=== PATIENT | female | born 1950 | race Caucasian/White ===

== ENCOUNTER → 2016-09-21 | Outpatient (CLI) | payer MEDICAID ==
--- NOTE | 2016-09-21 16:43 | WOMENS IMAGING REPORT ---
EXAM DESCRIPTION: BILAT SCREENING MAMMO W/CAD COMPLETED DATE/TIME: 09/21/2016 2:35 pm REASON FOR STUDY: Z12.31, ROUTINE SCREENING MAMMO Z12.31 ENCNTR SCREEN MAMMOGRAM FOR MALIGNANT NEOP LASM OF BREA COMPARISON: 2014 TECHNIQUE: Standard craniocaudal and mediolateral oblique views of each breast recorded using [employer] l acquisition. LIMITATIONS: None. FINDINGS: No masses, calcifications or architectural distortion. No areas of suspicion. Read with the assistance of CAD. .[facility] - R2 Cenova Version 1.3 .[facility] - R2 Cenova Version 1.3 .[facility] - R2 Cenova Version 2.4 .[facility] - R2 Cenova Version 2.4 .[facility] - R2 Hospice Volunteer Version 9.2 IMPRESSION: NORMAL MAMMOGRAM. BIRADS 1. BREAST DENSITY: b. There are scattered areas of fibroglandular density. BIRAD: 1 NEGATIVE RECOMMENDATION: ROUTINE SCREENING COMMENT: The patient has been notified of the results by letter per MQSA requirements. Additional no tification policies are in place for contacting patient with suspicious or incomplete findings. Quality ID #[id number]: The [employer] recommends an annual screening mammogram for women aged 40 years or over. This facility utilizes a reminder system to ensure that all patients receive reminder letters, and/or direct phone calls for appointments. This includes reminders for routine scr eening mammograms, diagnostic mammograms, or other Breast Imaging Interventions when appropriate. Th is patient will be placed in the appropriate reminder system. The [employer] (ACR) has developed recommendations for screening MRI of the breast s in certain patient populations, to be used in conjunction with mammography. Breast MRI surveillanc e may be appropriate for women with more than 20% lifetime risk of developing breast cancer as deter mined by genetic testing, significant family history of the disease, or history of mantle radiation f or Hodgkins Disease. ACR Practice Guidelines 2008. TECHNICAL DOCUMENTATION: FINDING NUMBER: (1) ASSESSMENT: (1) JOB ID: [id number] [employer]- All Rights Reserved
== END ==
LOC: WI 13:21
PROVIDERS: ATTEND Internal Medicine Geriatric Medicine
DX: Z12.31 Encounter for screening mammogram for malignant neoplasm of breast (principal)
CPT/HCPCS: 77067; G0202

== ENCOUNTER 2017-09-01 15:46 | Emergency (ER) | payer MEDICARE, MEDICAID ==
[2017-09-01] MEDS ORDERED: LORAZEPAM 1 MG TABLET PO ONE (16:03)
--- NOTE | 2017-09-01 16:03 | ER Document Report ---
ED General - General Chief Complaint: Tremor Stated Complaint: SHAKING Time Seen by Provider: 09/01/17 15:59 Mode of Arrival: Ambulatory Information source: Patient Notes: 67-year-old female diabetic who notes her blood sugars usually in the 400s and refuses to take any insulin presents with complaints of generalized shaking TRAVEL OUTSIDE OF THE [place] IN LAST 30 DAYS: No - Related Data Allergies/Adverse Reactions: codeine [Codeine] Allergy (Severe, Verified 08/27/15 19:15) Anaphylaxis dihydroergotamine mesylate [From Dhe] Allergy (Severe, Verified 08/27/15 19:15) Loss of balance/severe dizziness escitalopram oxalate [From Lexapro] Adverse Reaction (Severe, Verified 08/27/15 19:15) Suicidal Past Medical History - Social History Smoking Status: Current Every Day Smoker Cigarette use (# per day): Yes Chew tobacco use (# tins/day): No Smoking Education Provided: No Family History: Reviewed & Not Pertinent, Arthritis, CAD, DM, Hyperlipidemia, Hypertension, Malignancy - Past Medical History Cardiac Medical History: Reports: Hx Hypercholesterolemia, Hx Hypertension Denies: Hx Coronary Artery Disease, Hx Heart Attack Pulmonary Medical History: Denies: Hx Asthma, Hx Bronchitis, Hx COPD, Hx Pneumonia Neurological Medical History: Reports: Hx Migraine. Denies: Hx Cerebrovascular Accident, Hx Seizures - ? Unsure, going to sleep study after preop appt Endocrine Medical History: Reports: Hx Diabetes Mellitus Type 2 Renal/ Medical History: Reports: Hx Kidney Stones GI Medical History: Reports: Hx Gastroesophageal Reflux Disease, Hx Colonoscopy , Hx Endoscopy Musculoskeltal Medical History: Denies Hx Arthritis, Reports Hx Musculoskeletal Deformity Psychiatric Medical History: Reports: Hx Bipolar Disorder, Hx Depression Infectious Medical History: Past Surgical History: Reports: Hx Abdominal Surgery - lLiposuction, Hx Breast Surgery, Hx Cholecystectomy, Hx Hysterectomy, Hx Neurologic Surgery - Vagus nerve stimulator placed, Hx Nose Surgery, Hx Tonsillectomy - Immunizations Immunizations up to date: No Hx Diphtheria, Pertussis, Tetanus Vaccination: No Review of Systems - Review of Systems Notes: REVIEW OF SYSTEMS: CONSTITUTIONAL : Denies fever, chills, or sweats. Denies recent illness. EENT: Denies eye, ear, throat, or mouth pain or symptoms. Denies nasal or sinus congestion or discharge. Denies throat, tongue, or mouth swelling or difficulty swallowing. CARDIOVASCULAR: Denies chest pain. Denies palpitations or racing or irregular heart beat. Denies ankle edema. RESPIRATORY: Denies cough, cold, or chest congestion. Denies shortness of breath, difficulty breathing, or wheezing. GASTROINTESTINAL: Denies abdominal pain or distention. Denies nausea, vomiting , or diarrhea. Denies blood in vomitus, stools, or per rectum. Denies black, tarry stools. Denies constipation. GENITOURINARY: Denies difficulty urinating, painful urination, burning, frequency, blood in urine, or discharge. FEMALE GENITOURINARY: Denies vaginal bleeding, heavy or abnormal periods, irregular periods. Denies vaginal discharge or odor. MUSCULOSKELETAL: Denies back or neck pain or stiffness. Denies joint pain or swelling. SKIN: Denies rash, lesions or sores. HEMATOLOGIC : Denies easy bruising or bleeding. LYMPHATIC: Denies swollen, enlarged glands. NEUROLOGICAL: Denies confusion or altered mental status. Denies passing out or loss of consciousness. Denies dizziness or lightheadedness. Denies headache. Denies weakness or paralysis or loss of use of either side. Denies problems with gait or speech. Denies sensory loss, numbness, or tingling. Denies seizures. PSYCHIATRIC: Admits to stress anxiety shaking ALL OTHER SYSTEMS REVIEWED AND NEGATIVE. PHYSICAL EXAMINATION: GENERAL: Well-appearing, well-nourished appears to be having a panic attack HEAD: Atraumatic, normocephalic. EYES: Pupils equal round and reactive to light, extraocular movements intact, conjunctiva are normal. ENT: Nares patent, oropharynx clear without exudates. Moist mucous membranes. NECK: Normal range of motion, supple without lymphadenopathy LUNGS: Breath sounds clear to auscultation bilaterally and equal. No wheezes rales or rhonchi. HEART: Regular rate and rhythm without murmurs ABDOMEN: Soft, nontender, nondistended abdomen. No guarding, no rebound. No masses appreciated. Female : deferred Musculoskeletal: Normal range of motion, no pitting or edema. No cyanosis. NEUROLOGICAL: Cranial nerves grossly intact. Normal speech, normal gait. Normal sensory, motor exams PSYCH: extremely anxious and shaking SKIN: Warm, Dry, normal turgor, no rashes or lesions noted. Dictation was performed using [employer] recognition software Physical Exam - Vital signs Vitals: Temp Pulse Resp BP Pulse Ox 99.3 F 122 H 24 H 195/102 H 94 09/01/17 15:58 09/01/17 15:58 09/01/17 15:58 09/01/17 15:58 09/01/17 15:58 Course - Re-evaluation Re-evalutation: 09/01/17 17:42 Patient symptoms have completely resolved after being given Ativan, she is no longer in distress, she is quite calm at this time happy states her symptoms have completely resolved Patient overall looks well is in no distress her liver enzymes are noted to be elevated but have been elevated in the past, this has been instructed to her After performing a Medical Screening Examination, I estimate there is LOW risk for ACUTE APPENDICITIS, BOWEL OBSTRUCTION, ACUTE CHOLECYSTITIS, PERFORATED DIVERTICULITIS, INCARCERATED HERNIA, PANCREATITIS, PELVIC INFLAMMATORY DISEASE, PERFORATED ULCER, ECTOPIC , or TUBO-OVARIAN ABSCESS, thus I consider the discharge disposition reasonable. Also, there is no evidence or peritonitis , sepsis, or toxicity. I have reevaluated this patient multiple times and no significant life threatening changes are noted. The patient and I have discussed the diagnosis and risks, and we agree with discharging home with close follow-up with the understanding that symptoms and presentations can change. We also discussed returning to the Emergency Department immediately if new or worsening symptoms occur. We have discussed the symptoms which are most concerning (e.g., bloody stool, fever, changing or worsening pain, vomiting) that necessitate immediate return. - Vital Signs Vital signs: Temp Pulse Resp BP Pulse Ox 99.3 F 122 H 24 H 195/102 H 94 09/01/17 15:58 09/01/17 15:58 09/01/17 15:58 09/01/17 15:58 09/01/17 15:58 - Laboratory Result Diagrams: 09/01/17 16:22 09/01/17 16:22 Laboratory results interpreted by me: 09/01/17 09/01/17 09/01/17 15:48 16:22 16:22 WBC 12.5 H Absolute Neutrophils 8.7 H Glucose 366 H Calcium 10.6 H AST 43 H ALT 156 H Alkaline Phosphatase 303 H Urine Protein 100 H Urine Glucose (UA) >=500 H Ur Leukocyte Esterase SMALL H Discharge - Discharge Clinical Impression: Panic attack as reaction to stress, Elevated liver enzymes HTN (hypertension) Qualifiers: Hypertension type: essential hypertension Qualified Code(s): I10 - Essential ( primary) hypertension Condition: Stable Disposition: HOME, SELF-CARE Instructions: Panic Attack ([facility]) Prescriptions: Lorazepam [Ativan 1 mg Tablet] 1 mg PO Q4 PRN #14 tab PRN Reason: Referrals: ROSALINO LAWRENCE MD [Primary Care Provider] - Follow up tomorrow
[2017-09-01 16:06] VITALS: BP 195/102
[2017-09-01 16:55] LABS: ABSOLUTE BASOPHILS # (AUTO) 0.1 10^3/uL (0.0-0.2); ABSOLUTE EOSINOPHILS # (AUTO) 0.2 10^3/uL (0.0-0.6); ABSOLUTE LYMPHOCYTES (AUTO) 2.8 10^3/uL (0.5-4.7); ABSOLUTE MONOCYTES (AUTO) 0.7 10^3/uL (0.1-1.4); ABSOLUTE NEUT (AUTO) 8.7 10^3/uL (1.7-8.2); BASOPHILS % (AUTO) 0.6 % (0-2); EOSINOPHILS % (AUTO) 1.6 % (0-6); HEMATOCRIT 43.1 % (36.0-47.0); HEMOGLOBIN 14.4 g/dL (12.0-15.5); LYMPHOCYTES % (AUTO) 22.1 % (13-45); MEAN CORPUSCULAR HGB CONC 33.4 g/dL (32.0-36.0); MEAN CORPUSCULAR VOLUME 84 fl (80-97); MONOCYTES % (AUTO) 5.9 % (3-13); PLATELET COUNT 411 10^3/uL (150-450); RED BLOOD COUNT 5.14 10^6/uL (3.72-5.28); RED CELL DISTRIBUTION WIDTH 13.1 % (11.5-14.0); SEGMENTED NEUTROPHILS % (AUTO) 69.8 % (42-78); TOTAL CELLS COUNTED % (AUTO) 100 %; WHITE BLOOD COUNT 12.5 10^3/uL (4.0-10.5)
[2017-09-01 17:10] LABS: APPEARANCE,URINE SLIGHTLY-CLOUDY; BILIRUBIN,URINE NEGATIVE (NEGATIVE); COLOR,URINE YELLOW; GLUCOSE, URINE >=500 mg/dL (NEGATIVE); KETONES,URINE NEGATIVE (NEGATIVE); LEUKOCYTE ESTERASE,URINE SMALL (NEGATIVE); NITRITE,URINE NEGATIVE (NEGATIVE); PROTEIN,URINE 100 mg/dL (NEGATIVE); URINE SPECIFIC GRAVITY 1.015; UROBILINOGEN,URINE NEGATIVE mg/dL (<2.0)
[2017-09-01 17:11] LABS: ALANINE AMINOTRANSFERASE 156 U/L (9-52); ALBUMIN 4.6 g/dL (3.5-5.0); ALKALINE PHOSPHATASE 303 U/L (38-126); ANION GAP 13 (5-19); ASPARTATE AMINO TRANSFERASE 43 U/L (14-36); BILIRUBIN,DIRECT 0.4 mg/dL (0.0-0.4); BILIRUBIN,TOTAL 0.8 mg/dL (0.2-1.3); BLOOD UREA NITROGEN 13 mg/dL (7-20); CALCIUM 10.6 mg/dL (8.4-10.2); CARBON DIOXIDE 29 mmol/L (22-30); CHLORIDE 101 mmol/L (98-107); GLUCOSE 366 mg/dL (75-110); POTASSIUM 4.6 mmol/L (3.6-5.0); SODIUM 143.2 mmol/L (137-145); TOTAL PROTEIN 7.5 g/dL (6.3-8.2)
== END 2017-09-01 17:57 | disposition home or self-care (01) ==
LOC: ER 15:46
DX: F43.0 Acute stress reaction (principal); R74.8 Abnormal levels of other serum enzymes; I10 Essential (primary) hypertension; E11.9 Type 2 diabetes mellitus without complications; F17.210 Nicotine dependence, cigarettes, uncomplicated; Z88.8 Allergy status to other drugs, medicaments and biological substances; Z87.892 Personal history of anaphylaxis; Z88.5 Allergy status to narcotic agent
CPT/HCPCS: 99283; 36415; 87086; 82962; 85025; 80053; 81001; A9270

== ENCOUNTER 2017-10-03 03:22 | Emergency (ER) | payer MEDICARE, MEDICAID ==
[2017-10-03] MEDS ORDERED: GABAPENTIN 300 MG CAPSULE PO ONE (05:17)
[2017-10-03] MEDS ORDERED: GABAPENTIN 100 MG CAPSULE PO ONE (05:17)
[2017-10-03] MEDS ORDERED: QUETIAPINE FUMARATE 100 MG TABLET PO ONE (05:17)
--- NOTE | 2017-10-03 05:17 | ER Document Report ---
HPI - HPI Patient complains to provider of: Insomnia, medication refill Pain Level: 1 Context: Patient is a 67-year-old female who comes emergency department for chief complaint of insomnia. She states that she ran out of her Seroquel, she takes 500 mg at night, she also ran out of her gabapentin, she takes 400 mg 5 times daily. She has the prescription bottles with her. She states that her provider is out of town for a few days and she cannot get refills, she has not slept other than a couple of catnaps for the past 2-3 days. She denies fever, nausea vomiting, she reports mild headache. She denies chest pain, shortness of breath, vomiting. She denies any other complaints. - CONSTITUTIONAL Constitutional: DENIES: Fever, Chills - EENT EENT: DENIES: Sore Throat, Ear Pain, Eye problems - NEURO Neurology: DENIES: Headache, Weakness, Vision blurred, Dizzinesss / Vertigo - CARDIOVASCULAR Cardiovascular: DENIES: Chest pain - RESPIRATORY Respiratory: DENIES: Trouble Breathing, Coughing - GASTROINTESTINAL Gastrointestinal: DENIES: Abdominal Pain, Black / Bloody Stools - URINARY Urinary: DENIES: Dysuria, Urgency, Frequency - REPRODUCTIVE Reproductive: DENIES: : - MUSCULOSKELETAL Musculoskeletal: DENIES: Extremity pain Past Medical History - General Information source: Patient - Social History Smoking Status: Former Smoker Frequency of alcohol use: None Drug Abuse: None Lives with: Alone Family History: Reviewed & Not Pertinent, Arthritis, CAD, DM, Hyperlipidemia, Hypertension, Malignancy Patient has suicidal ideation: No Patient has homicidal ideation: No - Past Medical History Cardiac Medical History: Reports: Hx Hypercholesterolemia, Hx Hypertension Denies: Hx Coronary Artery Disease, Hx Heart Attack Pulmonary Medical History: Denies: Hx Asthma, Hx Bronchitis, Hx COPD, Hx Pneumonia Neurological Medical History: Reports: Hx Migraine. Denies: Hx Cerebrovascular Accident. Comment Only: Hx Seizures - ? Unsure, going to sleep study after preop appt Endocrine Medical History: Reports: Hx Diabetes Mellitus Type 2 Renal/ Medical History: Reports: Hx Kidney Stones. Denies: Hx Peritoneal Dialysis GI Medical History: Reports: Hx Gastroesophageal Reflux Disease, Hx Colonoscopy , Hx Endoscopy Musculoskeltal Medical History: Denies Hx Arthritis, Reports Hx Musculoskeletal Deformity Psychiatric Medical History: Reports: Hx Bipolar Disorder, Hx Depression Infectious Medical History: Past Surgical History: Reports: Hx Abdominal Surgery - lLiposuction, Hx Breast Surgery, Hx Cholecystectomy, Hx Hysterectomy, Hx Neurologic Surgery - Vagus nerve stimulator placed, Hx Nose Surgery, Hx Tonsillectomy - Immunizations Immunizations up to date: No Hx Diphtheria, Pertussis, Tetanus Vaccination: No Vertical Provider Document - CONSTITUTIONAL General Appearance: WD/WN, No Apparent Distress - INFECTION CONTROL TRAVEL OUTSIDE OF THE [place] IN LAST 30 DAYS: No - HEENT HEENT: Atraumatic, Normal ENT Exam, Normocephalic - NECK Neck: Normal Inspection - RESPIRATORY Respiratory: Breath Sounds Normal, No Respiratory Distress - CARDIOVASCULAR Cardiovascular: Regular Rate, Regular Rhythm - GI/ABDOMEN Gastrointestinal: Abdomen Soft, Abdomen Non-Tender - BACK Back: Normal Inspection - MUSCULOSKELETAL/EXTREMETIES Musculoskeletal/Extremeties: MAEW, FROM, Non-Tender - NEURO Level of Consciousness: Awake, Alert, Appropriate - DERM Integumentary: Warm, Dry, No Rash Course - Re-evaluation Re-evalutation: Patient is actually alert, relaxed, oriented, and conversational. She explains that she ran out of her medications and she has only had minimal napping, she is very tired but she cannot fall asleep. She is requesting for doses of her nighttime medications and prescriptions of these. She brought her empty bottles. No SI or HI. No additional complaints. Unremarkable vital signs. Well-appearing on exam. Patient was provided with these requests, she will follow-up with her primary care, discussed return instructions, patient states understanding and agreement. - Vital Signs Vital signs: Temp Pulse Resp BP Pulse Ox 98.0 F 100 16 148/76 H 100 10/03/17 03:28 10/03/17 03:28 10/03/17 03:28 10/03/17 03:28 10/03/17 03:28 Discharge - Discharge Clinical Impression: Medication refill Insomnia Qualifiers: Insomnia type: unspecified Qualified Code(s): G47.00 - Insomnia, unspecified Condition: Stable Disposition: HOME, SELF-CARE Additional Instructions: Take your prescribed medications including gabapentin and Seroquel as written. Follow-up with your primary care for additional evaluation and management. Return to the emergency department for any concerning symptoms or something is not right. Prescriptions: Gabapentin 400 mg PO ASDIR PRN #60 capsule PRN Reason: Quetiapine Fumarate [Seroquel] 200 mg PO ASDIR PRN #30 tablet PRN Reason: Forms: Elevated Blood Pressure Referrals: ROSALINO LAWRENCE MD [Primary Care Provider] - Follow up as needed
[2017-10-03] MEDS ORDERED: ONDANSETRON 4 MG TAB.RAPDIS PO ONE (05:18)
[2017-10-03 05:41] VITALS: BP 151/86
== END 2017-10-03 05:40 | disposition home or self-care (01) ==
LOC: ER 03:22
DX: Z76.0 Encounter for issue of repeat prescription (principal); G47.00 Insomnia, unspecified; T42.6X6A Underdosing of other antiepileptic and sedative-hypnotic drugs, initial encounter; Z91.128 Patient's intentional underdosing of medication regimen for other reason; Z91.14 Patient's other noncompliance with medication regimen; F31.9 Bipolar disorder, unspecified; T43.596A Underdosing of other antipsychotics and neuroleptics, initial encounter; I10 Essential (primary) hypertension; E11.9 Type 2 diabetes mellitus without complications; Z87.891 Personal history of nicotine dependence
CPT/HCPCS: 99283; A9270 ×4; S0119

== ENCOUNTER 2017-10-29 05:34 | Emergency (ER) | payer MEDICARE, MEDICAID ==
--- NOTE | 2017-10-29 05:49 | ER Document Report ---
ED Medical Screen (RME) - General Stated Complaint: FALL,BACK PAIN Time Seen by Provider: 10/29/17 05:40 Notes: 67-year-old female, chief complaint of a fall, she states she suddenly got really dizzy and lightheaded and then fell into her tub when she was trying to go to the bathroom. She denies head injury, headache, neck pain, focal numbness or weakness. She states she hurts in her back and her hips, she was stuck on the floor in the tub for about 4 hours before neighbors responded and called the police, EMS broke down her door. Patient keeps repeating she is fine , declined IV access. She denies blood thinners. TRAVEL OUTSIDE OF THE [place] IN LAST 30 DAYS: No - Related Data Allergies/Adverse Reactions: codeine [Codeine] Allergy (Severe, Verified 08/27/15 19:15) Anaphylaxis dihydroergotamine mesylate [From Dhe] Allergy (Severe, Verified 08/27/15 19:15) Loss of balance/severe dizziness escitalopram oxalate [From Lexapro] Adverse Reaction (Severe, Verified 08/27/15 19:15) Suicidal Past Medical History - Past Medical History Cardiac Medical History: Reports: Hx Hypercholesterolemia, Hx Hypertension Denies: Hx Coronary Artery Disease, Hx Heart Attack Pulmonary Medical History: Denies: Hx Asthma, Hx Bronchitis, Hx COPD, Hx Pneumonia Neurological Medical History: Reports: Hx Migraine. Denies: Hx Cerebrovascular Accident. Comment Only: Hx Seizures - ? Unsure, going to sleep study after preop appt Endocrine Medical History: Reports: Hx Diabetes Mellitus Type 2 Renal/ Medical History: Reports: Hx Kidney Stones. Denies: Hx Peritoneal Dialysis GI Medical History: Reports: Hx Gastroesophageal Reflux Disease, Hx Colonoscopy , Hx Endoscopy Musculoskeltal Medical History: Denies Hx Arthritis, Reports Hx Musculoskeletal Deformity Psychiatric Medical History: Reports: Hx Bipolar Disorder, Hx Depression Infectious Medical History: Past Surgical History: Reports: Hx Abdominal Surgery - lLiposuction, Hx Breast Surgery, Hx Cholecystectomy, Hx Hysterectomy, Hx Neurologic Surgery - Vagus nerve stimulator placed, Hx Nose Surgery, Hx Tonsillectomy - Immunizations Immunizations up to date: No Hx Diphtheria, Pertussis, Tetanus Vaccination: No Physical Exam - Back Back: Tender - Generalized tenderness over lumbar area, no noted signs of trauma - Neurological Neuro grossly intact: Yes Cognition: Normal Orientation: AAOx4 Toan Coma Scale Eye Opening: Spontaneous Toan Coma Scale Verbal: Oriented Toan Coma Scale Motor: Obeys Commands Toan Coma Scale Total: 15 Speech: Normal Cranial nerves: Normal Cerebellar coordination: Normal Motor strength normal: ELADIO ANDERSON, HANSAE, RLE Doctor's Discharge - Discharge Referrals: ROSALINO LAWRENCE MD [Primary Care Provider] - Follow up as needed
--- NOTE | 2017-10-29 06:26 | ER Document Report ---
ED Fall - General Chief Complaint: Fall Stated Complaint: FALL,BACK PAIN Time Seen by Provider: 10/29/17 05:40 TRAVEL OUTSIDE OF THE [place] IN LAST 30 DAYS: No - HPI Occurred: Just prior to arrival Where: Home Context: Lost balance, Fell from standing Associated symptoms: Became dizzy/fainted Location of injury/pain: Back Severity: Moderate Notes: 67-year-old female, chief complaint of a fall, she states she suddenly got really dizzy and lightheaded after standing up from the toilet status post urination. And then fell into her tu. She denies head injury, headache, neck pain, focal numbness or weakness. She states she hurts in her back and her hips , she was stuck on the floor in the tub for about 4 hours before neighbors responded and called the police, EMS broke down her door. Patient complains of some mild low back pain. Denies any head or neck pain. The patient stood up from a standing position and got very dizzy when she was on the toilet. She states she never really passed out. States she has been well as of late most notable she has had her Neurontin doubled last week for her tremors. She has been seeing her family doctor for this. - Related data Allergies/Adverse Reactions: codeine [Codeine] Allergy (Severe, Verified 08/27/15 19:15) Anaphylaxis dihydroergotamine mesylate [From Dhe] Allergy (Severe, Verified 08/27/15 19:15) Loss of balance/severe dizziness escitalopram oxalate [From Lexapro] Adverse Reaction (Severe, Verified 08/27/15 19:15) Suicidal Past Medical History - Social History Smoking Status: Never Smoker Chew tobacco use (# tins/day): No Frequency of alcohol use: None Drug Abuse: None Family History: Reviewed & Not Pertinent, Arthritis, CAD, DM, Hyperlipidemia, Hypertension, Malignancy Patient has suicidal ideation: No Patient has homicidal ideation: No - Past Medical History Cardiac Medical History: Reports: Hx Hypercholesterolemia, Hx Hypertension Denies: Hx Coronary Artery Disease, Hx Heart Attack Pulmonary Medical History: Denies: Hx Asthma, Hx Bronchitis, Hx COPD, Hx Pneumonia Neurological Medical History: Reports: Hx Migraine. Denies: Hx Cerebrovascular Accident. Comment Only: Hx Seizures - ? Unsure, going to sleep study after preop appt Endocrine Medical History: Reports: Hx Diabetes Mellitus Type 2 Renal/ Medical History: Reports: Hx Kidney Stones. Denies: Hx Peritoneal Dialysis GI Medical History: Reports: Hx Gastroesophageal Reflux Disease, Hx Colonoscopy , Hx Endoscopy Musculoskeletal Medical History: Denies Hx Arthritis, Reports Hx Musculoskeletal Deformity Psychiatric Medical History: Reports: Hx Bipolar Disorder, Hx Depression Infectious Medical History: Past Surgical History: Reports: Hx Abdominal Surgery - lLiposuction, Hx Breast Surgery, Hx Cholecystectomy, Hx Hysterectomy, Hx Neurologic Surgery - Vagus nerve stimulator placed, Hx Nose Surgery, Hx Tonsillectomy - Immunizations Immunizations up to date: No Hx Diphtheria, Pertussis, Tetanus Vaccination: No Review of Systems - Review of Systems Constitutional: denies: Chills, Fever Cardiovascular: denies: Chest pain Respiratory: denies: Short of breath Gastrointestinal: denies: Abdominal pain, Nausea, Vomiting Musculoskeletal: Back pain. denies: Joint pain Neurological/Psychological: Tremor. denies: Confusion, Dementia -: Yes All other systems reviewed and negative Physical Exam - Vital signs Vitals: Resp Pulse Ox 23 H 95 10/29/17 05:42 10/29/17 05:42 - Notes Notes: GENERAL_APPEARANCE: well_nourished, alert, cooperative, no_acute_distress, no_ obvious_discomfort. VITALS: reviewed, see vital signs table. HEAD: no_swelling\tenderness on the head. EYES: PERRL, EOMI, conjunctiva_clear. NOSE: no_nasal_discharge. MOUTH: (-)decreased moisture. THROAT: no_airway_obstruction. no_lymphadenopathy NECK: supple, no_neck_tenderness, (-)thyromegaly. BACK: L1-3 paraspinal_back_tenderness. CHEST_WALL: no_chest_tenderness. LUNGS: no_wheezing, no_rales, no_rhonchi, (-)accessory muscle use, good air exchange bilateral. HEART: normal_rate, normal_rhythm, normal_S1, normal_S2, (-)S3, (-)S4, no_ murmur, no_rub. ABDOMEN: normal_BS, soft, no_abd_tenderness, (-)guarding, (-)rebound, no_ organomegaly, no_abd_masses. EXTREMITIES: good pulses in all_extremities, no_swelling\tenderness in the extremities, no_edema. SKIN: warm, dry, good_color, no_rash. MENTAL_STATUS: speech_clear, oriented_X_3, normal_affect, responds_ appropriately to questions. NEURO: Neg Motor or Sensory Deficits on exam, CN 2-12 intact, DTR 2+ symmetric x 4, No cerbellar signs Course - Re-evaluation Re-evalutation: 10/29/17 06:30 67-year-old female who was in the bathroom urinating and went to stand up and got very dizzy and fell onto her bathtub. She was stuck in the bathtub in a certain position where she could not for yourself. Was knocking on the wall for several hours. EMS had to break down the door to get in. States she is feeling much better now after not being trapped in the tub. She denies any head or neck injuries. Stated she had dizzy when she stood up from the toilet. She denies chest pains or shortness of breath. Rechecking some generalized labs to be shows no significant abnormalities. I do not feel a need to image her head she has no neurological complaints. The dizziness is likely due to standing or possibly vasovagal due to post maturation. Patient was also very tired and this was near the middle the night. She is feeling much better now will give her some fluids. Monitor her closely. 10/29/17 09:39 Patient was monitored blood sugar was up high we have given her fluids and insulin. I believe she usually runs high. I encouraged her to keep a check of her blood sugars and consult with her doctor to get her blood sugars better under control. Otherwise she has no injuries from her fall and other than her blood sugar everything is in order with her blood work. - Vital Signs Vital signs: Temp Pulse Resp BP Pulse Ox 97.9 F 21 H 138/107 H 97 10/29/17 06:01 10/29/17 06:01 10/29/17 06:01 10/29/17 06:01 - Laboratory Result Diagrams: 10/29/17 05:50 10/29/17 05:50 Laboratory results interpreted by me: 10/29/17 10/29/17 10/29/17 05:50 05:50 08:30 Sodium 135.6 L Carbon Dioxide 21 L Creatinine 0.46 L Glucose 631 H* POC Glucose 451 H* ALT 74 H Alkaline Phosphatase 252 H Urine Glucose (UA) >=500 H Discharge - Discharge Clinical Impression: Back sprain, Hyperglycemia Fall Qualifiers: Encounter type: initial encounter Qualified Code(s): W19.XXXA - Unspecified fall, initial encounter Condition: Good Disposition: HOME, SELF-CARE Instructions: Hyperglycemia ([facility]) Additional Instructions: Please keep a journal of her blood sugars and show them to your doctor so that they can adjust your diabetes medicine to keep the sugars low. Referrals: ROSALINO LAWRENCE MD [Primary Care Provider] - Follow up as needed
[2017-10-29 06:29] LABS: APPEARANCE,URINE CLEAR; BILIRUBIN,URINE NEGATIVE (NEGATIVE); COLOR,URINE STRAW; GLUCOSE, URINE >=500 mg/dL (NEGATIVE); KETONES,URINE NEGATIVE (NEGATIVE); LEUKOCYTE ESTERASE,URINE NEGATIVE (NEGATIVE); NITRITE,URINE NEGATIVE (NEGATIVE); PROTEIN,URINE NEGATIVE (NEGATIVE); URINE SPECIFIC GRAVITY 1.032; UROBILINOGEN,URINE NEGATIVE mg/dL (<2.0)
[2017-10-29] MEDS ORDERED: NORMAL SALINE 1000 ML 1,000 ML IV ONE ×2 (06:32→08:32)
[2017-10-29 06:34] LABS: ABSOLUTE EOSINOPHILS # (AUTO) 0.1 10^3/uL (0.0-0.6); ABSOLUTE LYMPHOCYTES (AUTO) 1.8 10^3/uL (0.5-4.7); ABSOLUTE MONOCYTES (AUTO) 0.5 10^3/uL (0.1-1.4); ABSOLUTE NEUT (AUTO) 4.4 10^3/uL (1.7-8.2); BASOPHILS % (AUTO) 0.7 % (0-2); EOSINOPHILS % (AUTO) 1.7 % (0-6); HEMATOCRIT 40.5 % (36.0-47.0); HEMOGLOBIN 13.5 g/dL (12.0-15.5); LYMPHOCYTES % (AUTO) 26.2 % (13-45); MEAN CORPUSCULAR HEMOGLOBIN 28.2 pg (27.0-33.4); MEAN CORPUSCULAR HGB CONC 33.2 g/dL (32.0-36.0); MEAN CORPUSCULAR VOLUME 85 fl (80-97); MONOCYTES % (AUTO) 7.7 % (3-13); PLATELET COUNT 243 10^3/uL (150-450); RED BLOOD COUNT 4.78 10^6/uL (3.72-5.28); RED CELL DISTRIBUTION WIDTH 13.3 % (11.5-14.0); SEGMENTED NEUTROPHILS % (AUTO) 63.7 % (42-78); TOTAL CELLS COUNTED % (AUTO) 100 %; WHITE BLOOD COUNT 6.9 10^3/uL (4.0-10.5)
[2017-10-29 06:48] LABS: ALANINE AMINOTRANSFERASE 74 U/L (9-52); ALBUMIN 3.8 g/dL (3.5-5.0); ALKALINE PHOSPHATASE 252 U/L (38-126); ANION GAP 17 (5-19); ASPARTATE AMINO TRANSFERASE 29 U/L (14-36); BILIRUBIN,DIRECT 0.3 mg/dL (0.0-0.4); BILIRUBIN,TOTAL 0.9 mg/dL (0.2-1.3); BLOOD UREA NITROGEN 10 mg/dL (7-20); CALCIUM 9.9 mg/dL (8.4-10.2); CARBON DIOXIDE 21 mmol/L (22-30); CHLORIDE 98 mmol/L (98-107); CREATINE KINASE 35 U/L (30-135); POTASSIUM 4.3 mmol/L (3.6-5.0); SODIUM 135.6 mmol/L (137-145); TOTAL PROTEIN 6.6 g/dL (6.3-8.2)
[2017-10-29 07:12] LABS: GLUCOSE 631 mg/dL (75-110)
[2017-10-29] MEDS ORDERED: INSULIN REG, HUMAN 100 UNIT/ML 3 ML VIAL (PYX) IV ONE ×2 (07:12→08:32)
--- NOTE | 2017-10-29 07:17 | RADIOLOGY REPORT (SQ) ---
EXAM DESCRIPTION: XR LUMBAR SPINE ANTEROPOSTERIOR, LATERAL, AND OBLIQUES COMPLETED DATE/TME: 10/29/2017 05:45 CLINICAL HISTORY: 67 years, Female, fall, pain COMPARISON: None. FINDINGS: 4 views of the lumbar spine. Vertebral body height and intervertebral disc height preserved. Mild endplate spondylosis and facet arthropathy. No cortical step-offs or subluxation. No acute abnormalities of the pelvis or sacrum. Postoperative change in the pelvis. Atherosclerotic vascular calcification. IMPRESSION: No acute abnormality of the lumbar spine by plain film criteria. 2010 [employer]- All Rights Reserved
--- NOTE | 2017-10-29 07:20 | RADIOLOGY REPORT (SQ) ---
EXAM DESCRIPTION: XR HIP 1 VIEW BILATERAL COMPLETED DATE/TME: 10/29/2017 05:46 CLINICAL HISTORY: 67 years, Female, fall, pain COMPARISON: None. FINDINGS: Single view of the pelvis and bilateral lateral views of the hips. No acute fracture or dislocation. No acute abnormalities of the pelvis or sacrum. Postoperative change in the pelvis. Osteopenia. IMPRESSION: No acute fracture. 2010 [employer]- All Rights Reserved
--- NOTE | 2017-10-29 09:04 | EKG REPORT ---
SEVERITY:- ABNORMAL ECG - SINUS TACHYCARDIA ABNRM R PROG, CONSIDER ASMI OR LEAD PLACEMENT : Confirmed by: Raquel Holguin 29-Oct-2017 09:03:17
[2017-10-29 10:11] VITALS: BP 119/72
== END 2017-10-29 10:10 | disposition home or self-care (01) ==
LOC: ER 05:34
DX: M54.9 Dorsalgia, unspecified (principal); M25.559 Pain in unspecified hip; W17.89XA Other fall from one level to another, initial encounter; Y93.89 Activity, other specified; Y92.002 Bathroom of unspecified non-institutional (private) residence as the place of occurrence of the external cause; E11.65 Type 2 diabetes mellitus with hyperglycemia; R42 Dizziness and giddiness; R25.1 Tremor, unspecified; I10 Essential (primary) hypertension; Z79.899 Other long term (current) drug therapy; Z88.6 Allergy status to analgesic agent; Z87.892 Personal history of anaphylaxis; Z88.5 Allergy status to narcotic agent
CPT/HCPCS: 93005; 99284; 96360; 96361; 36415; 82962; 82550; 85025; 80053; 81001; 84484; 72110; 73522; 93010; A9270; J7030; J1815

== ENCOUNTER 2018-01-16 09:57 | Inpatient (IN) | payer MEDICARE, MEDICAID ==
--- NOTE | 2018-01-16 10:24 | ER Document Report ---
ED General - General Chief Complaint: Shortness Of Breath Stated Complaint: DIFFICULTY BREATHING Time Seen by Provider: 01/16/18 10:14 Notes: Patient is a 67-year-old female with diabetes mellitus, anxiety and hypertension that presents to the emergency department for chief complaint of shortness of breath, and abdominal pain and diarrhea. Patient states his been feeling this way for a few days, and has worsened over that period of time. She is diabetic, she does not take her glucose at home, per EMS it was high, when taken. Patient unable to provide significant history at this time as she is in significant respiratory distress, denies having any chest pain associated with this. But she states she does have abdominal cramping and pain. Past Medical History: Diabetes mellitus, anxiety, hypertension Past Surgical History: Reports lung surgery Social History: Admits to smoking cigarettes daily, denies alcohol use Family History: Reviewed and noncontributory for presenting illness Allergies: Reviewed, see documented allergy list. REVIEW OF SYSTEMS: Unless otherwise stated in this report the patient's positive and negative responses for review of systems for constitutional, eyes, ENT, cardiovascular, respiratory, gastrointestinal, neurological, genitourinary, musculoskeletal, and integumentary systems and related systems to the presenting problem are either as stated in the HPI or were not pertinent or were negative for the symptoms and/or complaints related to the presenting medical problem. PHYSICAL EXAMINATION: Vital signs reviewed, nursing noted reviewed. GENERAL: Chronically ill-appearing female, in severe distress, increased work of breathing HEAD: Atraumatic, normocephalic. EYES: Eyes appear normal, extraocular movements intact, sclera anicteric, conjunctiva are normal. ENT: nares patent, oropharynx clear without exudates. Dry mucous membranes NECK: Normal range of motion, supple without lymphadenopathy LUNGS: Increased, shallow and rapid breathing, equal bilaterally, scattered expiratory wheezing noted as well. Acute respiratory distress HEART: Heart rate tachycardic, regular rhythm, no audible murmur ABDOMEN: Soft, mild diffuse tenderness with palpation, normoactive bowel sounds. No rebound, guarding, or rigidity. No masses appreciated. EXTREMITIES: Nontender, good range of motion, no pitting or edema. NEUROLOGICAL: No focal neurological deficits. Moves all extremities spontaneously Motor and sensory grossly intact on exam. PSYCH: Patient in distress, slow to answer questions SKIN: Warm, Dry, normal turgor, no rashes or lesions noted on exposed skin TRAVEL OUTSIDE OF THE [place] IN LAST 30 DAYS: No - Related Data Allergies/Adverse Reactions: codeine [Codeine] Allergy (Severe, Verified 08/27/15 19:15) Anaphylaxis dihydroergotamine mesylate [From Dhe] Allergy (Severe, Verified 08/27/15 19:15) Loss of balance/severe dizziness escitalopram oxalate [From Lexapro] Adverse Reaction (Severe, Verified 08/27/15 19:15) Suicidal Past Medical History - Social History Smoking Status: Current Every Day Smoker Family History: Reviewed & Not Pertinent, Arthritis, CAD, DM, Hyperlipidemia, Hypertension, Malignancy - Past Medical History Cardiac Medical History: Reports: Hx Hypercholesterolemia, Hx Hypertension Denies: Hx Coronary Artery Disease, Hx Heart Attack Pulmonary Medical History: Denies: Hx Asthma, Hx Bronchitis, Hx COPD, Hx Pneumonia Neurological Medical History: Reports: Hx Migraine. Denies: Hx Cerebrovascular Accident. Comment Only: Hx Seizures - ? Unsure, going to sleep study after preop appt Endocrine Medical History: Reports: Hx Diabetes Mellitus Type 2 Renal/ Medical History: Reports: Hx Kidney Stones. Denies: Hx Peritoneal Dialysis GI Medical History: Reports: Hx Gastroesophageal Reflux Disease, Hx Colonoscopy , Hx Endoscopy Musculoskeletal Medical History: Denies Hx Arthritis, Reports Hx Musculoskeletal Deformity Psychiatric Medical History: Reports: Hx Bipolar Disorder, Hx Depression Infectious Medical History: Past Surgical History: Reports: Hx Abdominal Surgery - lLiposuction, Hx Breast Surgery, Hx Cholecystectomy, Hx Hysterectomy, Hx Neurologic Surgery - Vagus nerve stimulator placed, Hx Nose Surgery, Hx Tonsillectomy - Immunizations Immunizations up to date: No Hx Diphtheria, Pertussis, Tetanus Vaccination: No Physical Exam - Vital signs Vitals: Temp Pulse Resp BP Pulse Ox 97.9 F 130 H 28 H 84/67 L 93 01/16/18 10:11 01/16/18 10:11 01/16/18 10:11 01/16/18 10:11 01/16/18 10:11 Course - Re-evaluation Re-evalutation: Patient seen and examined vital signs reviewed. Laboratory data and imaging were ordered as appropriate for the patient's presenting symptoms and complaint, with consideration of any critical or life threatening conditions that may be associated with their obtained history and exam as noted above. Patient was treated with IV fluid bolusing, she was tachycardic, and appeared significantly dehydrated and was having diarrhea Results were reviewed when available and demonstrated markedly elevated lactic acid, greater than 8, glucose in the 700s, severe diabetic ketoacidosis, chest x -ray demonstrates small effusion, no evidence of pneumonia or infiltrate, urinalysis demonstrated glucose, without evidence of infection. The patient was re-evaluated and was improving from a blood pressure standpoint , she was hypotensive, needed IV fluid resuscitation, total of 3 L of IV fluid were ordered, and we will continue to bolus the patient as needed, she continues to have diarrhea. After significant fluid resuscitation, the patient's blood pressure is stabilized in the 120 systolic, heart rate still in 100s, but overall patient much improved. Evaluation was most consistent with hypotension, severe diabetic ketoacidosis, requiring fluid resuscitation, insulin infusion, multiple reassessments Results were discussed with the patient at this point after careful consideration I feel that that patient should be admitted to the hospital. This was discussed with the patient that it is in the best interest for their care to be admitted for further evaluation and management. Patient agreed with this plan of care. A call was placed to the admitted physician, Dr. Montenegro who graciously accepted the patient onto their service. *Note is created using voice recognition software and may contain spelling, syntax or grammatical errors. Laboratory 01/16/18 01/16/18 01/16/18 10:09 10:15 10:22 WBC 18.9 H RBC 5.32 H Hgb 15.1 Hct 47.3 H MCV 89 MCH 28.4 MCHC 31.9 L RDW 14.1 H Plt Count 398 Seg Neutrophils % 62.9 Lymphocytes % 32.2 Monocytes % 3.8 Eosinophils % 0.8 Basophils % 0.3 Absolute Neutrophils 11.9 H Absolute Lymphocytes 6.1 H Absolute Monocytes 0.7 Absolute Eosinophils 0.1 Absolute Basophils 0.1 PT INR VBG pH VBG pCO2 VBG HCO3 VBG Base Excess Sodium Potassium Chloride Carbon Dioxide Anion Gap BUN Creatinine Est GFR ( Amer) Est GFR (Non-Af Amer) Glucose POC Glucose > 550 H* Lactic Acid Calcium Total Bilirubin Direct Bilirubin Neonat Total Bilirubin Neonat Direct Bilirubin Neonat Indirect Bili AST ALT Alkaline Phosphatase NT-Pro-B Natriuret Pep Total Protein Albumin Beta-Hydroxybutyrate Urine Color STRAW Urine Appearance CLEAR Urine pH 6.0 Ur Specific [place] 1.014 Urine Protein NEGATIVE Urine Glucose (UA) >=500 H Urine Ketones NEGATIVE Urine Blood NEGATIVE Urine Nitrite NEGATIVE Urine Bilirubin NEGATIVE Urine Urobilinogen NEGATIVE Ur Leukocyte Esterase NEGATIVE Urine WBC (Auto) 2 Urine RBC (Auto) 0 Squamous Epi Cells Auto <1 Urine Mucus (Auto) RARE Urine Ascorbic Acid NEGATIVE 01/16/18 01/16/18 01/16/18 10:22 10:22 10:22 WBC RBC Hgb Hct MCV MCH MCHC RDW Plt Count Seg Neutrophils % Lymphocytes % Monocytes % Eosinophils % Basophils % Absolute Neutrophils Absolute Lymphocytes Absolute Monocytes Absolute Eosinophils Absolute Basophils PT 13.8 INR 1.01 VBG pH VBG pCO2 VBG HCO3 VBG Base Excess Sodium 134.6 L Potassium 4.7 Chloride 98 Carbon Dioxide 17 L Anion Gap 20 H BUN 21 H Creatinine 1.15 Est GFR ( Amer) 57 L Est GFR (Non-Af Amer) 47 L Glucose 638 H* POC Glucose Lactic Acid 8.9 H Calcium 10.4 H Total Bilirubin 1.3 Direct Bilirubin 0.6 H Neonat Total Bilirubin Not Reportable Neonat Direct Bilirubin Not Reportable Neonat Indirect Bili Not Reportable AST 43 H ALT 31 Alkaline Phosphatase 166 H NT-Pro-B Natriuret Pep Total Protein 7.1 Albumin 4.2 Beta-Hydroxybutyrate Urine Color Urine Appearance Urine pH Ur Specific [place] Urine Protein Urine Glucose (UA) Urine Ketones Urine Blood Urine Nitrite Urine Bilirubin Urine Urobilinogen Ur Leukocyte Esterase Urine WBC (Auto) Urine RBC (Auto) Squamous Epi Cells Auto Urine Mucus (Auto) Urine Ascorbic Acid 01/16/18 01/16/18 01/16/18 10:22 10:22 10:22 WBC RBC Hgb Hct MCV MCH MCHC RDW Plt Count Seg Neutrophils % Lymphocytes % Monocytes % Eosinophils % Basophils % Absolute Neutrophils Absolute Lymphocytes Absolute Monocytes Absolute Eosinophils Absolute Basophils PT INR VBG pH 7.19 L* VBG pCO2 49.7 VBG HCO3 18.7 L VBG Base Excess -9.6 Sodium Potassium Chloride Carbon Dioxide Anion Gap BUN Creatinine Est GFR ( Amer) Est GFR (Non-Af Amer) Glucose POC Glucose Lactic Acid Calcium Total Bilirubin Direct Bilirubin Neonat Total Bilirubin Neonat Direct Bilirubin Neonat Indirect Bili AST ALT Alkaline Phosphatase NT-Pro-B Natriuret Pep 298 Total Protein Albumin Beta-Hydroxybutyrate Cancelled Urine Color Urine Appearance Urine pH Ur Specific [place] Urine Protein Urine Glucose (UA) Urine Ketones Urine Blood Urine Nitrite Urine Bilirubin Urine Urobilinogen Ur Leukocyte Esterase Urine WBC (Auto) Urine RBC (Auto) Squamous Epi Cells Auto Urine Mucus (Auto) Urine Ascorbic Acid Chest X-Ray 01/16/18 10:29 IMPRESSION: Small left pleural effusion. - Vital Signs Vital signs: Temp Pulse Resp BP Pulse Ox 97.9 F 130 H 17 106/53 L 98 01/16/18 10:11 01/16/18 10:11 01/16/18 13:45 01/16/18 13:45 01/16/18 13:44 - Laboratory Result Diagrams: 01/16/18 10:22 01/16/18 10:22 Laboratory results interpreted by me: 01/16/18 01/16/18 01/16/18 10:09 10:15 10:22 WBC 18.9 H RBC 5.32 H Hct 47.3 H MCHC 31.9 L RDW 14.1 H Absolute Neutrophils 11.9 H Absolute Lymphocytes 6.1 H VBG pH VBG HCO3 Sodium Carbon Dioxide Anion Gap BUN Est GFR ( Amer) Est GFR (Non-Af Amer) Glucose POC Glucose > 550 H* Lactic Acid Calcium Direct Bilirubin AST Alkaline Phosphatase Urine Glucose (UA) >=500 H 01/16/18 01/16/18 01/16/18 10:22 10:22 10:22 WBC RBC Hct MCHC RDW Absolute Neutrophils Absolute Lymphocytes VBG pH 7.19 L* VBG HCO3 18.7 L Sodium 134.6 L Carbon Dioxide 17 L Anion Gap 20 H BUN 21 H Est GFR ( Amer) 57 L Est GFR (Non-Af Amer) 47 L Glucose 638 H* POC Glucose Lactic Acid 8.9 H Calcium 10.4 H Direct Bilirubin 0.6 H AST 43 H Alkaline Phosphatase 166 H Urine Glucose (UA) - EKG Interpretation by Me Additional EKG results interpreted by me: EKG demonstrates sinus tachycardia with a ventricular rate of 129 bpm, normal axis, normal intervals, there is no acute ischemic changes noted on this EKG, this is compared with prior EKG from 10/29/2017, only change is the increase in tachycardia. Critical Care Note - Critical Care Note Total time excluding time spent on procedures (mins): 80 Comments: Critical care time 80 minutes exclusive from separate billable procedures for a patient requiring complex medical decision making, and high potential for clinical deterioration. In a patient with severe diabetic ketoacidosis, hypotension, severe lactic acidosis, requiring significant fluid resuscitation, and frequent bedside evaluations. Time spent obtaining history from patient or surrogate, discussions with consultants, development of treatment plan with patient or surrogate, evaluation of patient's response to treatment, examination of patient, ordering and performing treatments and interventions, ordering and review of laboratory studies, re-evaluation of patient's condition , ordering and review of radiographic studies and review of old charts Discharge - Discharge Clinical Impression: Lactic acidosis Diabetic ketoacidosis Qualifiers: Diabetes mellitus type: type 2 Diabetes mellitus complication detail: without coma Qualified Code(s): E11.10 - Type 2 diabetes mellitus with ketoacidosis without coma Diarrhea Qualifiers: Diarrhea type: unspecified type Qualified Code(s): R19.7 - Diarrhea, unspecified Hypotension Qualifiers: Hypotension type: unspecified hypotension type Qualified Code(s): I95.9 - Hypotension, unspecified Condition: Stable Disposition: ADMITTED INPATIENT Admitting Provider: Lan Unit Admitted: ICU
[2018-01-16] MEDS ORDERED: RINGERS SOLUTION,LACTATED 1,000 ML IV ONE (10:30)
[2018-01-16] MEDS ORDERED: NORMAL SALINE 1000 ML 1,000 ML IV ONE ×4 (10:44→23:00)
[2018-01-16 10:46] LABS: VENOUS BLOOD BASE EXCESS -9.6 mmol/L; VENOUS BLOOD HCO3 18.7 mmol/L (20-32); VENOUS BLOOD PCO2 49.7 mmHg (35-63)
[2018-01-16 10:47] LABS: ABSOLUTE BASOPHILS # (AUTO) 0.1 10^3/uL (0.0-0.2); ABSOLUTE EOSINOPHILS # (AUTO) 0.1 10^3/uL (0.0-0.6); ABSOLUTE LYMPHOCYTES (AUTO) 6.1 10^3/uL (0.5-4.7); ABSOLUTE MONOCYTES (AUTO) 0.7 10^3/uL (0.1-1.4); ABSOLUTE NEUT (AUTO) 11.9 10^3/uL (1.7-8.2); BASOPHILS % (AUTO) 0.3 % (0-2); EOSINOPHILS % (AUTO) 0.8 % (0-6); HEMATOCRIT 47.3 % (36.0-47.0); HEMOGLOBIN 15.1 g/dL (12.0-15.5); LYMPHOCYTES % (AUTO) 32.2 % (13-45); MEAN CORPUSCULAR HEMOGLOBIN 28.4 pg (27.0-33.4); MEAN CORPUSCULAR HGB CONC 31.9 g/dL (32.0-36.0); MEAN CORPUSCULAR VOLUME 89 fl (80-97); MONOCYTES % (AUTO) 3.8 % (3-13); PLATELET COUNT 398 10^3/uL (150-450); RED BLOOD COUNT 5.32 10^6/uL (3.72-5.28); RED CELL DISTRIBUTION WIDTH 14.1 % (11.5-14.0); SEGMENTED NEUTROPHILS % (AUTO) 62.9 % (42-78); TOTAL CELLS COUNTED % (AUTO) 100 %; WHITE BLOOD COUNT 18.9 10^3/uL (4.0-10.5)
[2018-01-16 10:51] LABS: VENOUS BLOOD PH 7.19 (7.30-7.42)
[2018-01-16 10:55] LABS: INTERNATIONAL RATION (INR) 1.01; PROTHROMBIN TIME 13.8 SEC (11.4-15.4)
[2018-01-16] MEDS ORDERED: GLUCAGON,HUMAN RECOMB 1 MG INJ IM PRN ×2 (11:17→21:11)
[2018-01-16] MEDS ORDERED: NORMAL SALINE 100 ML with INSULIN REGULAR, HUMAN 100 UNIT IV PRN ×2 (11:17)
[2018-01-16] MEDS ORDERED: DEXTROSE 50%-WATER 25 GM/50 ML DISP.SYRIN IV PRN ×2 (11:17)
[2018-01-16] MEDS ORDERED: DEXTROSE 40% GEL 15 GM TUBE PO PRN ×3 (11:17→21:11)
[2018-01-16 11:19] LABS: APPEARANCE,URINE CLEAR; BILIRUBIN,URINE NEGATIVE (NEGATIVE); COLOR,URINE STRAW; GLUCOSE, URINE >=500 mg/dL (NEGATIVE); KETONES,URINE NEGATIVE (NEGATIVE); LEUKOCYTE ESTERASE,URINE NEGATIVE (NEGATIVE); NITRITE,URINE NEGATIVE (NEGATIVE); PROTEIN,URINE NEGATIVE (NEGATIVE); URINE SPECIFIC GRAVITY 1.014; UROBILINOGEN,URINE NEGATIVE mg/dL (<2.0)
[2018-01-16 11:23] LABS: ALANINE AMINOTRANSFERASE 31 U/L (9-52); ALBUMIN 4.2 g/dL (3.5-5.0); ALKALINE PHOSPHATASE 166 U/L (38-126); ASPARTATE AMINO TRANSFERASE 43 U/L (14-36); BILIRUBIN,DIRECT 0.6 mg/dL (0.0-0.4); BILIRUBIN,TOTAL 1.3 mg/dL (0.2-1.3); BLOOD UREA NITROGEN 21 mg/dL (7-20); CALCIUM 10.4 mg/dL (8.4-10.2); CHLORIDE 98 mmol/L (98-107); POTASSIUM 4.7 mmol/L (3.6-5.0); SODIUM 134.6 mmol/L (137-145); TOTAL PROTEIN 7.1 g/dL (6.3-8.2)
--- NOTE | 2018-01-16 11:24 | RADIOLOGY REPORT (SQ) ---
EXAM DESCRIPTION: CHEST SINGLE VIEW COMPLETED DATE/TIME: 01/16/2018 11:11 am REASON FOR STUDY: SHORT OF BREATH COMPARISON: 01/25/2013 EXAM PARAMETERS: NUMBER OF VIEWS: One view. TECHNIQUE: Single frontal radiographic view of the chest acquired. RADIATION DOSE: NA LIMITATIONS: Body habitus. Poor inspiratory effort. FINDINGS: LUNGS AND PLEURA: Small left pleural effusion. The right lung is clear. MEDIASTINUM AND HILAR STRUCTURES: Normal for technique. HEART AND VASCULAR STRUCTURES: Normal for technique. BONES: No acute findings. HARDWARE: Vagal nerve stimulator. OTHER: No other significant finding. IMPRESSION: Small left pleural effusion. TECHNICAL DOCUMENTATION: JOB ID: [id number] [employer]- All Rights Reserved Reading location - IP/workstation name: [email or web address]
[2018-01-16 11:28] LABS: CARBON DIOXIDE 17 mmol/L (22-30); GLUCOSE 638 mg/dL (75-110)
[2018-01-16] MEDS ORDERED: INSULIN REG, HUMAN 100 UNIT/ML 3 ML VIAL (PYX) ONE (11:39)
[2018-01-16 11:42] LABS: ANION GAP 20 (5-19)
--- NOTE | 2018-01-16 13:02 | EKG REPORT ---
SEVERITY:- BORDERLINE ECG - SINUS TACHYCARDIA PROBABLE LEFT ATRIAL ABNORMALITY : Confirmed by: Cayden Espitia MD 16-Jan-2018 13:01:54
[2018-01-16] MEDS ORDERED: NORMAL SALINE 1000 ML 1,000 ML IV PRN (17:27)
[2018-01-16 19:11] LABS: ANION GAP 13 (5-19); BLOOD UREA NITROGEN 19 mg/dL (7-20); CALCIUM 9.4 mg/dL (8.4-10.2); CARBON DIOXIDE 21 mmol/L (22-30); CHLORIDE 107 mmol/L (98-107); GLUCOSE 294 mg/dL (75-110); POTASSIUM 4.6 mmol/L (3.6-5.0); SODIUM 140.7 mmol/L (137-145)
--- NOTE | 2018-01-16 20:02 | PDOC H&P ---
History of Present Illness Admission Date/PCP: 01/16/18 12:11 [facility] Patient complains of: Abdominal pain, diarrhea, difficulty with breathing History of Present Illness: LETTY GOSS is a 67 year old female known to my practice but noncompliant with follow up schedule management presented to the ED today via EMS service with complaint of abdominal pain, diarrhea and difficulty with breathing over last couple of days. Due to worsening symptoms she activated the EMS and she was brought to the ED. EMS personnel reported significantly elevated blood glucose level in the field. Patient has history of diabetes mellitus with questionable compliance with medical management. She denied consumption of any unusual food or drink. She described her abdominal pain a cramps in nature and associated with her bowel movement. Mostly in the lower abdominal region. She denied tarry or blood stool. She reported associated nausea but no vomiting. She denied any chest pain. No fever or chills. No dysuria, flank pain or hematuria. Her initial evaluation in the ED revealed ongoing DKA with low anion gap. Her morbidities include diabetes mellitus, Hypertension, Hyperlipidemia, Migraine headache, Kidney Stones, Gastroesophageal Reflux Disease, and Bipolar Disorder with Depression and Anxiety. Past Medical History Cardiac Medical History: Reports: Hyperlipidema, Hypertension Denies: Coronary Artery Disease, Myocardial Infarction Pulmonary Medical History: Denies: Asthma, Bronchitis, Chronic Obstructive Pulmonary Disease (COPD), Pneumonia Neurological Medical History: Reports: Migraine Comment Only: Seizures - ? Unsure, going to sleep study after preop appt Endocrine Medical History: Reports: Diabetes Mellitus Type 2 GI Medical History: Reports: Gastroesophageal Reflux Disease Musculoskeltal Medical History: Denies: Arthritis Psychiatric Medical History: Reports: Bipolar Disorder, Depression Hematology: Reports: Anemia - As a child Denies: Sickle Cell Disease Past Surgical History Past Surgical History: Reports: Cholecystectomy, Hysterectomy, Tonsillectomy Denies: Amputation Social History Smoking Status: Never Smoker Frequency of Alcohol Use: None Hx Recreational Drug Use: No Hx Prescription Drug Abuse: No - Advance Directive Resuscitation Status: Full Code Family History Family History: Reviewed & Not Pertinent, Arthritis, CAD, DM, Hyperlipidemia, Hypertension, Malignancy Parental Family History Reviewed: Yes Children Family History Reviewed: Yes Sibling(s) Family History Reviewed.: Yes Medication/Allergy Home Medications: Gabapentin [Neurontin 400 mg Capsule] 400 mg PO Q4 01/16/18 Glimepiride [Amaryl 4 mg Tablet] 4 mg PO DAILY 01/16/18 Hydrocodone/Acetaminophen [Hydrocodone-Acetamin 5-325 mg] 1 tab PO Q12HP PRN Lisinopril [Prinivil] 20 mg PO DAILY 01/16/18 Lorazepam [Ativan 1 mg Tablet] 1 mg PO Q8HP PRN 01/16/18 Quetiapine Fumarate [Seroquel] 500 mg PO QHS 01/16/18 Rizatriptan Benzoate [Maxalt] 10 mg PO DAILYP PRN 01/16/18 Rosuvastatin Calcium [Crestor 20 mg Tablet] 20 mg PO DAILY 01/16/18 Sitagliptin Phos/Metformin HCl [Janumet 50-1,000 mg Tablet] 1 tab PO BIDPCBS Tizanidine HCl [Zanaflex 4 mg Tablet] 4 mg PO Q12HP PRN 01/16/18 Tramadol HCl [Ultram 50 mg Tablet] 50 mg PO Q12HP PRN 01/16/18 Allergies/Adverse Reactions: codeine [Codeine] Allergy (Severe, Verified 08/27/15 19:15) Anaphylaxis dihydroergotamine mesylate [From Dhe] Allergy (Severe, Verified 08/27/15 19:15) Loss of balance/severe dizziness escitalopram oxalate [From Lexapro] Adverse Reaction (Severe, Verified 08/27/15 19:15) Suicidal Review of Systems Constitutional: ABSENT: chills, fever(s), headache(s), weight gain, weight loss Eyes: ABSENT: visual disturbances Ears: ABSENT: hearing changes Nose, Mouth, and Throat: ABSENT: headache(s), sore throat, vertigo Cardiovascular: PRESENT: dyspnea on exertion. ABSENT: as per HPI, chest pain, edema, orthropnea, palpitations, other Respiratory: PRESENT: dyspnea. ABSENT: as per HPI, cough, hemoptysis, sputum, other Gastrointestinal: PRESENT: abdominal pain, nausea. ABSENT: as per HPI, bloating , coffee ground emesis, constipation, diarrhea, dysphagia, heartburn, hematemesis, hematochezia, melena, vomiting, other Genitourinary: ABSENT: dysuria, hematuria Musculoskeletal: PRESENT: joint swelling. ABSENT: deformity, muscle weakness Integumentary: ABSENT: rash, wounds Neurological: ABSENT: abnormal gait, abnormal speech, confusion, dizziness, focal weakness, syncope Psychiatric: PRESENT: anxiety, depression. ABSENT: as per HPI, hallucinations, homidical ideation, suicidal ideation, other Endocrine: ABSENT: cold intolerance, heat intolerance, polydipsia, polyuria Hematologic/Lymphatic: ABSENT: easy bleeding, easy bruising, lymphadenopathy Allergic/Immunologic: ABSENT: seasonal rhinorrhea Physical Exam Vital Signs: Temp Pulse Resp BP Pulse Ox 97.7 F 117 H 22 H 113/95 H 99 01/16/18 19:33 01/16/18 18:06 01/16/18 18:06 01/16/18 18:06 01/16/18 18:06 Intake & Output 01/15/18 01/16/18 01/17/18 06:59 06:59 06:59 Intake Total 1061 Balance 1061 Weight 75.7 kg General appearance: PRESENT: mild distress - on supplemental oxygen via nasal cannula Head exam: PRESENT: atraumatic, normocephalic Eye exam: PRESENT: conjunctiva pink, EOMI, PERRLA. ABSENT: scleral icterus Ear exam: PRESENT: normal external ear exam Mouth exam: PRESENT: moist Teeth exam: PRESENT: poor dentation Neck exam: PRESENT: full ROM. ABSENT: carotid bruit, JVD, lymphadenopathy, thyromegaly Respiratory exam: PRESENT: clear to auscultation bhavin Cardiovascular exam: PRESENT: +S1, +S2, tachycardia. ABSENT: diastolic murmur, systolic murmur Pulses: PRESENT: +2 pedal pulses bilateral Vascular exam: PRESENT: normal capillary refill. ABSENT: pallor GI/Abdominal exam: PRESENT: normal bowel sounds, soft, tenderness - nonspecific LLQ and RLQ to deep palpation. ABSENT: ascites, guarding, mass, Doe's sign , organolmegaly, rebound Rectal exam: PRESENT: deferred Extremities exam: ABSENT: pedal edema Musculoskeletal exam: PRESENT: deformity - related to multiple joints invlvement with arthritis Neurological exam: PRESENT: alert, awake, oriented to person, oriented to place , oriented to time, oriented to situation, CN II-XII grossly intact. ABSENT: motor sensory deficit Psychiatric exam: PRESENT: appropriate affect, normal mood. ABSENT: homicidal ideation, suicidal ideation Skin exam: PRESENT: dry, warm. ABSENT: rash Results Laboratory Results: I reviewed her laboratory results on [facility] and form significant part of my medical decision making 01/16/18:45 01/16/18 01/16/18 01/16/18 14:43 17:35 18:45 Sodium Cancelled 140.7 Potassium Cancelled 4.6 Chloride Cancelled 107 Carbon Dioxide Cancelled 21 L Anion Gap Cancelled 13 BUN Cancelled 19 Creatinine Cancelled 0.96 Est GFR ( Amer) Cancelled > 60 Est GFR (Non-Af Amer) Cancelled 58 L Glucose Cancelled 294 H Lactic Acid 6.0 H Calcium Cancelled 9.4 Impressions: Chest X-Ray 01/16/18 10:29 IMPRESSION: Small left pleural effusion. Assessment & Plan - Diagnosis (1) Diabetes mellitus type 2 with ketoacidosis, uncontrolled Is this a current diagnosis for this admission?: Yes Plan: See admitting attending physician orders. (2) Diabetes mellitus type 2 in obese Is this a current diagnosis for this admission?: Yes Plan: See admitting attending physician orders. (3) Diarrhea Qualifiers: Diarrhea type: unspecified type Qualified Code(s): R19.7 - Diarrhea, unspecified Is this a current diagnosis for this admission?: Yes Plan: See admitting attending physician orders. (4) Hypotension Qualifiers: Hypotension type: unspecified hypotension type Qualified Code(s): I95.9 - Hypotension, unspecified Is this a current diagnosis for this admission?: Yes Plan: See admitting attending physician orders. (5) Lactic acidosis Is this a current diagnosis for this admission?: Yes Plan: See admitting attending physician orders. (6) HTN (hypertension) Qualifiers: Hypertension type: essential hypertension Qualified Code(s): I10 - Essential (primary) hypertension Is this a current diagnosis for this admission?: Yes Plan: See admitting attending physician orders. (7) HLD (hyperlipidemia) Qualifiers: Hyperlipidemia type: unspecified Qualified Code(s): E78.5 - Hyperlipidemia , unspecified Is this a current diagnosis for this admission?: Yes Plan: See admitting attending physician orders. (8) GERD (gastroesophageal reflux disease) Qualifiers: Esophagitis presence: without esophagitis Qualified Code(s): K21.9 - Gastro -esophageal reflux disease without esophagitis Is this a current diagnosis for this admission?: Yes Plan: See admitting attending physician orders. (9) Bipolar disorder with depression Is this a current diagnosis for this admission?: Yes Plan: See admitting attending physician orders. (10) Anxiety Is this a current diagnosis for this admission?: Yes Plan: See admitting attending physician orders. (11) Migraine headache Qualifiers: Migraine type: unspecified Intractability: not intractable Is this a current diagnosis for this admission?: Yes Plan: See admitting attending physician orders. - Time Time Spent: 50 to 70 Minutes Medications reviewed and adjusted accordingly: Yes Anticipated discharge: Home with Homehealth Within: Other - Inpatient Certification Based on my medical assessment, after consideration of the patient's comorbidities, presenting symptoms, or acuity I expect that the services needed warrant INPATIENT care.: Yes I certify that my determination is in accordance with my understanding of Medicare's requirements for reasonable and necessary INPATIENT services [42 CFR 412.3e].: Yes Medical Necessity: Need Close Monitoring Due to Risk of Patient Decompensation, Need For IV Fluids, Need For Continuous Telemetry Monitoring, Risk of Complication if Not Cared For in Hospital Post Hospital Care: D/C Dip Dyer Documentation - Plan Summary Plan Summary: See admitting attending physician orders.
[2018-01-16] MEDS: ONDANSETRON HCL INJ/PF 4 MG/2 ML SDV IV PRN (20:56)
[2018-01-16] MEDS ORDERED: DEXTROSE 50%-WATER SYRINGE 12.5 GM/25 ML DOSE IV PRN (21:11)
[2018-01-16] MEDS ORDERED: DEXTROSE 50%-WATER SYRINGE 25 GM/50 ML DOSE IV PRN (21:11)
[2018-01-16] MEDS ORDERED: DEXTROSE 40% GEL 15 GM TUBE X 2 PO PRN (21:11)
[2018-01-16] MEDS ORDERED: INSULIN, REGULAR 100 UNIT/100 ML NORMAL SALINE IV PRN ×2 (21:11)
[2018-01-16] MEDS: QUETIAPINE FUMARATE 100 MG TABLET PO SCH (21:18)
[2018-01-16] MEDS: ATORVASTATIN CALCIUM 40 MG TABLET PO SCH (21:18)
[2018-01-16] MEDS: PIPERACILLIN SODIUM/TAZOBACTAM 3.375 GM in NORMAL SALINE 100 ML IV SCH (21:34)
[2018-01-16] MEDS ORDERED: QUETIAPINE FUMARATE 500 MG PO SCH (22:00)
[2018-01-16] MEDS ORDERED: DEXTROSE 5%-NORMAL SALINE 1,000 ML IV PRN (22:24)
[2018-01-16 23:31] LABS: CREATINE KINASE MB 0.57 ng/mL (<4.55); TROPONIN I 0.029 ng/mL
[2018-01-17] MEDS ORDERED: ACETAMINOPHEN 325 MG TABLET PO PRN (00:44)
[2018-01-17] MEDS ORDERED: METRONIDAZOLE 500 MG TABLET PO ONE (00:45)
[2018-01-17] MEDS ORDERED: INSULIN REG, HUMAN 100 UNIT/ML 3 ML VIAL (PYX) SUBCUT PRN (00:51)
[2018-01-17] MEDS ORDERED: METRONIDAZOLE 500 MG/NS RTU 500 MG/100 ML RTUPB IV ONE (01:00)
[2018-01-17] MEDS: NORMAL SALINE 1000 ML 1,000 ML IV PRN ×2 (01:11→14:30)
[2018-01-17] MEDS: PIPERACILLIN SODIUM/TAZOBACTAM 3.375 GM in NORMAL SALINE 100 ML IV SCH ×4 (02:37→21:13)
[2018-01-17] MEDS: ONDANSETRON HCL INJ/PF 4 MG/2 ML SDV IV PRN ×3 (02:40→14:49)
[2018-01-17 04:27] LABS: ABSOLUTE LYMPHOCYTES (AUTO) 0.7 10^3/uL (0.5-4.7); ABSOLUTE MONOCYTES (AUTO) 0.8 10^3/uL (0.1-1.4); ABSOLUTE NEUT (AUTO) 8.4 10^3/uL (1.7-8.2); BASOPHILS % (AUTO) 0.3 % (0-2); EOSINOPHILS % (AUTO) 0.2 % (0-6); HEMATOCRIT 33.9 % (36.0-47.0); LYMPHOCYTES % (AUTO) 7.4 % (13-45); MEAN CORPUSCULAR HEMOGLOBIN 28.5 pg (27.0-33.4); MEAN CORPUSCULAR HGB CONC 33.7 g/dL (32.0-36.0); MONOCYTES % (AUTO) 7.6 % (3-13); PLATELET COUNT 197 10^3/uL (150-450); RED BLOOD COUNT 4.01 10^6/uL (3.72-5.28); RED CELL DISTRIBUTION WIDTH 14.1 % (11.5-14.0); SEGMENTED NEUTROPHILS % (AUTO) 84.5 % (42-78); TOTAL CELLS COUNTED % (AUTO) 100 %; WHITE BLOOD COUNT 9.9 10^3/uL (4.0-10.5)
[2018-01-17 04:30] LABS: HEMOGLOBIN 11.4 g/dL (12.0-15.5); MEAN CORPUSCULAR VOLUME 85 fl (80-97)
[2018-01-17 04:39] LABS: ALANINE AMINOTRANSFERASE 44 U/L (9-52); ALBUMIN 2.4 g/dL (3.5-5.0); ALKALINE PHOSPHATASE 83 U/L (38-126); ANION GAP 10 (5-19); ASPARTATE AMINO TRANSFERASE 32 U/L (14-36); BILIRUBIN,DIRECT 0.3 mg/dL (0.0-0.4); BLOOD UREA NITROGEN 15 mg/dL (7-20); CALCIUM 8.2 mg/dL (8.4-10.2); CARBON DIOXIDE 18 mmol/L (22-30); CHLORIDE 111 mmol/L (98-107); GLUCOSE 199 mg/dL (75-110); SODIUM 138.5 mmol/L (137-145); TOTAL PROTEIN 4.5 g/dL (6.3-8.2); TRIGLYCERIDES 85 mg/dL (<150)
[2018-01-17 04:50] LABS: CHOLESTEROL < 50.00 mg/dL (0-200); DIRECT LDL < 30 mg/dL (<100)
[2018-01-17] MEDS ORDERED: METRONIDAZOLE 500 MG/NS RTU 500 MG/100 ML RTUPB IV SCH (06:00)
[2018-01-17] MEDS ORDERED: METRONIDAZOLE 500 MG TABLET PO SCH (06:00)
--- NOTE | 2018-01-17 08:24 | PDOC PROGRESS REPORT ---
Subjective Progress Note for:: 01/17/18 Subjective:: Patient continue to compliant about lower abdominal pain and nausea. No definite vomiting. Currently off insulin infusion with fairly satisfactory blood glucose. There is low grade fever. No chills. No chest pain or difficulty with breathing. Reason For Visit: DKA Physical Exam Vital Signs: Temp Pulse Resp BP Pulse Ox 98.8 F 96 16 101/51 L 98 01/17/18 08:00 01/17/18 08:00 01/17/18 08:00 01/17/18 08:00 01/17/18 08:00 Intake & Output 01/16/18 01/17/18 01/18/18 06:59 06:59 06:59 Intake Total 3311 Output Total 1370 125 Balance 1941 -125 Weight 77.1 kg General appearance: PRESENT: no acute distress, obese Head exam: PRESENT: atraumatic, normocephalic Eye exam: PRESENT: conjunctiva pink, EOMI, PERRLA. ABSENT: scleral icterus Ear exam: PRESENT: normal external ear exam Mouth exam: PRESENT: moist Teeth exam: PRESENT: poor dentation Respiratory exam: PRESENT: clear to auscultation bhavin, decreased breath sounds - at lung bases Cardiovascular exam: PRESENT: RRR. ABSENT: diastolic murmur, rubs, systolic murmur Vascular exam: PRESENT: normal capillary refill. ABSENT: pallor GI/Abdominal exam: PRESENT: guarding - slight to deep palpation., normal bowel sounds, soft, tenderness - lower quadrants. ABSENT: rebound Rectal exam: PRESENT: deferred Extremities exam: PRESENT: pedal edema Musculoskeletal exam: PRESENT: deformity - related to arthritis Neurological exam: PRESENT: alert, awake, oriented to person, oriented to place , oriented to time, oriented to situation, CN II-XII grossly intact. ABSENT: motor sensory deficit Psychiatric exam: PRESENT: appropriate affect, normal mood. ABSENT: homicidal ideation, suicidal ideation Skin exam: PRESENT: dry, intact, warm. ABSENT: cyanosis, rash Results Laboratory Results: 01/17/18 04:09 01/17/18 04:09 01/16/18 01/16/18 01/16/18 14:43 17:35 18:45 WBC RBC Hgb Hct MCV MCH MCHC RDW Plt Count Seg Neutrophils % Lymphocytes % Monocytes % Eosinophils % Basophils % Absolute Neutrophils Absolute Lymphocytes Absolute Monocytes Absolute Eosinophils Absolute Basophils Sodium Cancelled 140.7 Potassium Cancelled 4.6 Chloride Cancelled 107 Carbon Dioxide Cancelled 21 L Anion Gap Cancelled 13 BUN Cancelled 19 Creatinine Cancelled 0.96 Est GFR ( Amer) Cancelled > 60 Est GFR (Non-Af Amer) Cancelled 58 L Glucose Cancelled 294 H Lactic Acid 6.0 H Calcium Cancelled 9.4 Total Bilirubin AST ALT Alkaline Phosphatase Total Protein Albumin Triglycerides Cholesterol LDL Cholesterol Direct VLDL Cholesterol HDL Cholesterol 01/17/18 01/17/18 04:09 04:09 WBC 9.9 RBC 4.01 Hgb 11.4 L D Hct 33.9 L MCV 85 D MCH 28.5 MCHC 33.7 RDW 14.1 H Plt Count 197 Seg Neutrophils % 84.5 H Lymphocytes % 7.4 L Monocytes % 7.6 Eosinophils % 0.2 Basophils % 0.3 Absolute Neutrophils 8.4 H Absolute Lymphocytes 0.7 Absolute Monocytes 0.8 Absolute Eosinophils 0.0 Absolute Basophils 0.0 Sodium 138.5 Potassium 4.0 Chloride 111 H Carbon Dioxide 18 L Anion Gap 10 BUN 15 Creatinine 0.84 Est GFR ( Amer) > 60 Est GFR (Non-Af Amer) > 60 Glucose 199 H Lactic Acid Calcium 8.2 L Total Bilirubin 1.0 AST 32 ALT 44 Alkaline Phosphatase 83 Total Protein 4.5 L Albumin 2.4 L Triglycerides 85 Cholesterol < 50.00 LDL Cholesterol Direct < 30 VLDL Cholesterol 17.0 HDL Cholesterol 22 L 01/16/18 01/16/18 22:56 22:56 Creatine Kinase 28 L CK-MB (CK-2) 0.57 Troponin I 0.029 Impressions: Chest X-Ray 01/16/18 10:29 IMPRESSION: Small left pleural effusion. Assessment & Plan - Diagnosis (1) Diabetes mellitus type 2 with ketoacidosis, uncontrolled Is this a current diagnosis for this admission?: Yes Plan: Resolved. (2) Diabetes mellitus type 2 in obese Is this a current diagnosis for this admission?: Yes Plan: Start on Lantus Insulin 20 units sc daily and maintain on Humalog Insulin sliding scale achs. Adjust management as po intake and blood glucose level indicate. (3) Diarrhea Qualifiers: Diarrhea type: unspecified type Qualified Code(s): R19.7 - Diarrhea, unspecified Is this a current diagnosis for this admission?: Yes Plan: Continue on current medication management. (4) Hypotension Qualifiers: Hypotension type: unspecified hypotension type Qualified Code(s): I95.9 - Hypotension, unspecified Is this a current diagnosis for this admission?: Yes Plan: Continue on current medication management. (5) Lactic acidosis Is this a current diagnosis for this admission?: Yes Plan: Continue on current antibiotic coverage management. (6) HTN (hypertension) Qualifiers: Hypertension type: essential hypertension Qualified Code(s): I10 - Essential (primary) hypertension Is this a current diagnosis for this admission?: Yes Plan: Continue on current medication management. (7) HLD (hyperlipidemia) Qualifiers: Hyperlipidemia type: unspecified Qualified Code(s): E78.5 - Hyperlipidemia , unspecified Is this a current diagnosis for this admission?: Yes Plan: Continue on current medication management. (8) GERD (gastroesophageal reflux disease) Qualifiers: Esophagitis presence: without esophagitis Qualified Code(s): K21.9 - Gastro -esophageal reflux disease without esophagitis Is this a current diagnosis for this admission?: Yes Plan: Continue on current medication management. (9) Bipolar disorder with depression Is this a current diagnosis for this admission?: Yes Plan: Continue on current medication management. (10) Anxiety Is this a current diagnosis for this admission?: Yes Plan: Continue on current medication management. (11) Migraine headache Qualifiers: Migraine type: unspecified Intractability: not intractable Is this a current diagnosis for this admission?: Yes Plan: Continue on current medication management. - Time Time Spent with patient: 25-34 minutes Medications reviewed and adjusted accordingly: Yes Anticipated discharge: Home with Homehealth - Inpatient Certification Based on my medical assessment, after consideration of the patient's comorbidities, presenting symptoms, or acuity I expect that the services needed warrant INPATIENT care.: Yes I certify that my determination is in accordance with my understanding of Medicare's requirements for reasonable and necessary INPATIENT services [42 CFR 412.3e].: Yes Medical Necessity: Need Close Monitoring Due to Risk of Patient Decompensation, Need For IV Fluids, Need For Continuous Telemetry Monitoring, Need for IV Antibiotics, Risk of Complication if Not Cared For in Hospital Post Hospital Care: D/C Hospital Coordinator Documentation - Plan Summary Plan Summary: Continue IV fluid support. Maintain on antibiotic IV Zosyn and Flagyl. Consider abdominal and pelvic CT scan if no response to ongoing treatment. Start on Lantus Insulin therapy and maintain on Humalog insulin for sliding scale coverage achs.
[2018-01-17] MEDS ORDERED: (PENDING PHARMACY ID) (Lisinopril [Prinivil] 20 MG) PO SCH (10:00)
[2018-01-17] MEDS ORDERED: (PENDING PHARMACY ID) (Rosuvastatin Calcium [Crestor 20 Mg Tablet] 20 MG) PO SCH (10:00)
[2018-01-17] MEDS: METRONIDAZOLE 500 MG/NS RTU 500 MG/100 ML RTUPB IV SCH ×2 (10:52→17:54)
[2018-01-17] MEDS: LISINOPRIL 10 MG TABLET PO SCH (10:53)
[2018-01-17] MEDS: INSULIN GLARGINE,HUM.REC.ANLOG 300 UNIT/3 ML INSULN.PEN SUBCUT SCH (10:53)
[2018-01-17] MEDS: HYDROCODONE/ACETAMINOPHEN 5-325 MG TABLET PO PRN (10:54)
[2018-01-17] MEDS: INSULIN LISPRO 100 UNIT/ML 3 ML VIAL SUBCUT PRN ×3 (13:17→21:20)
[2018-01-17] MEDS ORDERED: DEXTROSE 50%-WATER SYRINGE 25 GM/50 ML DOSE IV PRN (14:43)
[2018-01-17] MEDS ORDERED: INSULIN LISPRO 100 UNIT/ML 3 ML VIAL SUBCUT PRN (14:43)
[2018-01-17] MEDS ORDERED: DEXTROSE 50%-WATER SYRINGE 12.5 GM/25 ML DOSE IV PRN (14:43)
[2018-01-17] MEDS ORDERED: GLUCAGON,HUMAN RECOMB 1 MG INJ IM PRN (14:43)
[2018-01-17] MEDS ORDERED: DEXTROSE 40% GEL 15 GM TUBE X 2 PO PRN (14:43)
[2018-01-17] MEDS ORDERED: DEXTROSE 40% GEL 15 GM TUBE PO PRN (14:43)
[2018-01-17] MEDS: ATORVASTATIN CALCIUM 40 MG TABLET PO SCH (21:13)
[2018-01-17] MEDS: QUETIAPINE FUMARATE 100 MG TABLET PO SCH (21:13)
[2018-01-18] MEDS: ONDANSETRON HCL INJ/PF 4 MG/2 ML SDV IV PRN ×4 (01:22→17:09)
[2018-01-18] MEDS: NORMAL SALINE 1000 ML 1,000 ML IV PRN ×2 (01:23→10:12)
[2018-01-18] MEDS: METRONIDAZOLE 500 MG/NS RTU 500 MG/100 ML RTUPB IV SCH ×3 (01:24→17:11)
[2018-01-18] MEDS: PIPERACILLIN SODIUM/TAZOBACTAM 3.375 GM in NORMAL SALINE 100 ML IV SCH ×4 (03:03→21:18)
[2018-01-18] MEDS: INSULIN GLARGINE,HUM.REC.ANLOG 300 UNIT/3 ML INSULN.PEN SUBCUT SCH ×2 (10:14→21:25)
[2018-01-18] MEDS: LISINOPRIL 10 MG TABLET PO SCH (10:15)
[2018-01-18] MEDS ORDERED: ONDANSETRON HCL INJ/PF 4 MG/2 ML SDV IV ONE (13:00)
[2018-01-18] MEDS ORDERED: INSULIN GLARGINE,HUM.REC.ANLOG 300 UNIT/3 ML INSULN.PEN SUBCUT SCH (17:35)
--- NOTE | 2018-01-18 17:47 | PDOC PROGRESS REPORT ---
Subjective Progress Note for:: 01/18/18 Subjective:: Patient continue to express nonspecific lower abdominal pain. There is continued intermittent nausea but no vomiting. No fever or chills. No chest pain or difficulty with breathing. She remain on IV fluid support and IV antibiotic therapy. Reason For Visit: DKA Physical Exam Vital Signs: Temp Pulse Resp BP Pulse Ox 98.3 F 101 H 26 H 155/87 H 95 01/18/18 14:00 01/18/18 12:00 01/18/18 15:00 01/18/18 14:46 01/18/18 15:00 Intake & Output 01/17/18 01/18/18 01/19/18 06:59 06:59 06:59 Intake Total 3311 1700 1200 Output Total 1370 2345 1675 Balance 7885 -175 -222 Weight 77.1 kg 78.2 kg Physical Exam: General appearance: PRESENT: no acute distress, obese Head exam: PRESENT: atraumatic, normocephalic Eye exam: PRESENT: conjunctiva pink, EOMI, PERRLA. ABSENT: scleral icterus Ear exam: PRESENT: normal external ear exam Mouth exam: PRESENT: moist Teeth exam: PRESENT: poor dentation Respiratory exam: PRESENT: clear to auscultation bhavin, decreased breath sounds - at lung bases Cardiovascular exam: PRESENT: RRR. ABSENT: diastolic murmur, rubs, systolic murmur Vascular exam: PRESENT: normal capillary refill. ABSENT: pallor GI/Abdominal exam: PRESENT: guarding - slight to deep palpation., normal bowel sounds, soft, tenderness - lower quadrants. ABSENT: rebound Rectal exam: PRESENT: deferred Extremities exam: PRESENT: pedal edema Musculoskeletal exam: PRESENT: deformity - related to arthritis Neurological exam: PRESENT: alert, awake, oriented to person, oriented to place , oriented to time, oriented to situation, CN II-XII grossly intact. ABSENT: motor sensory deficit Psychiatric exam: PRESENT: appropriate affect, normal mood. ABSENT: homicidal ideation, suicidal ideation Skin exam: PRESENT: dry, intact, warm. ABSENT: cyanosis, rash Results Laboratory Results: 01/17/18 04:09 01/17/18 04:09 01/18/18 01/18/18 01:25 01:25 Stool Occult Blood POSITIVE Stool for White Cells MODERATE H 01/16/18 01/16/18 22:56 22:56 Creatine Kinase 28 L CK-MB (CK-2) 0.57 Troponin I 0.029 Impressions: Chest X-Ray 01/16/18 10:29 IMPRESSION: Small left pleural effusion. Assessment & Plan - Diagnosis (1) Diabetes mellitus type 2 with ketoacidosis, uncontrolled Is this a current diagnosis for this admission?: Yes (2) Diabetes mellitus type 2 in obese Is this a current diagnosis for this admission?: Yes (3) Diarrhea Qualifiers: Diarrhea type: unspecified type Qualified Code(s): R19.7 - Diarrhea, unspecified Is this a current diagnosis for this admission?: Yes (4) Hypotension Qualifiers: Hypotension type: unspecified hypotension type Qualified Code(s): I95.9 - Hypotension, unspecified Is this a current diagnosis for this admission?: Yes (5) Lactic acidosis Is this a current diagnosis for this admission?: Yes (6) HTN (hypertension) Qualifiers: Hypertension type: essential hypertension Qualified Code(s): I10 - Essential (primary) hypertension Is this a current diagnosis for this admission?: Yes (7) HLD (hyperlipidemia) Qualifiers: Hyperlipidemia type: unspecified Qualified Code(s): E78.5 - Hyperlipidemia , unspecified Is this a current diagnosis for this admission?: Yes (8) GERD (gastroesophageal reflux disease) Qualifiers: Esophagitis presence: without esophagitis Qualified Code(s): K21.9 - Gastro -esophageal reflux disease without esophagitis Is this a current diagnosis for this admission?: Yes (9) Bipolar disorder with depression Is this a current diagnosis for this admission?: Yes (10) Anxiety Is this a current diagnosis for this admission?: Yes (11) Migraine headache Qualifiers: Migraine type: unspecified Intractability: not intractable Is this a current diagnosis for this admission?: Yes - Time Time Spent with patient: 25-34 minutes Medications reviewed and adjusted accordingly: Yes Anticipated discharge: Home Within: Other - Inpatient Certification Based on my medical assessment, after consideration of the patient's comorbidities, presenting symptoms, or acuity I expect that the services needed warrant INPATIENT care.: Yes I certify that my determination is in accordance with my understanding of Medicare's requirements for reasonable and necessary INPATIENT services [42 CFR 412.3e].: Yes Medical Necessity: Need Close Monitoring Due to Risk of Patient Decompensation, Need For IV Fluids, Need For Continuous Telemetry Monitoring, Need for Pain Control, Need for IV Antibiotics, Risk of Complication if Not Cared For in Hospital Post Hospital Care: D/C Operations Trainer Documentation - Plan Summary Plan Summary: Continue IV antibiotic coverage and decrease IV fluid rate to 100mL/hour. Start on Tigan 300 mg p.o tid for her nausea management. Maintain on IV Zofan 4 mg q4hrs prn regimen. Obtain CT scan abdomen and Pelvis with oral and IV contrast for lower abdominal pain of unknown etiology but her stool evaluation revealed positive blood and moderate WBC suggestive of colitis process. Increase Lantus insulin to 30 units SC daily. Continue sliding scale coverage. Down grade to IMCU status.
[2018-01-18] MEDS: HYDROCODONE/ACETAMINOPHEN 5-325 MG TABLET PO PRN (18:44)
[2018-01-18] MEDS: QUETIAPINE FUMARATE 100 MG TABLET PO SCH (21:15)
[2018-01-18] MEDS: ATORVASTATIN CALCIUM 40 MG TABLET PO SCH (21:16)
[2018-01-18] MEDS: TRIMETHOBENZAMIDE HCL 300 MG CAPSULE PO SCH (21:16)
[2018-01-19] MEDS: NORMAL SALINE 1000 ML 1,000 ML IV PRN (00:35)
[2018-01-19] MEDS: ONDANSETRON HCL INJ/PF 4 MG/2 ML SDV IV PRN ×4 (02:15→17:59)
[2018-01-19] MEDS: METRONIDAZOLE 500 MG/NS RTU 500 MG/100 ML RTUPB IV SCH ×3 (02:15→18:28)
[2018-01-19] MEDS: PIPERACILLIN SODIUM/TAZOBACTAM 3.375 GM in NORMAL SALINE 100 ML IV SCH ×4 (02:15→20:32)
[2018-01-19] MEDS: TRIMETHOBENZAMIDE HCL 300 MG CAPSULE PO SCH ×3 (06:09→22:18)
[2018-01-19] MEDS ORDERED: MAG HYDROX/AL HYDROX/SIMETH SUSP 30 ML UDCUP PO PRN (09:05)
[2018-01-19] MEDS: LISINOPRIL 10 MG TABLET PO SCH (09:10)
[2018-01-19] MEDS: PANTOPRAZOLE SODIUM 40 MG VIAL IV SCH ×2 (09:27→22:19)
--- NOTE | 2018-01-19 10:21 | PDOC PROGRESS REPORT ---
Subjective Progress Note for:: 01/19/18 Subjective:: Patient is complaining of is still unable to eat or drink and feeling nauseating Unable to go to the CT scan yesterday because of the p.o. contrast unable to take it Had endoscopy done 2 years back was all stable Patient's DKA is currently all resolved denied chest pain denied any shortness of the breath Reason For Visit: DKA Physical Exam Vital Signs: Temp Pulse Resp BP Pulse Ox 97.5 F 85 19 140/75 H 93 01/19/18 08:00 01/19/18 08:43 01/19/18 08:00 01/19/18 08:00 01/19/18 08:00 Intake & Output 01/18/18 01/19/18 01/20/18 06:59 06:59 06:59 Intake Total 1700 1700 Output Total 2345 4675 420 Balance -645 -2975 -420 Weight 78.2 kg 75.8 kg 75.8 kg General appearance: PRESENT: no acute distress, well-developed, well-nourished Head exam: PRESENT: atraumatic, normocephalic Eye exam: PRESENT: conjunctiva pink, EOMI, PERRLA. ABSENT: scleral icterus Ear exam: PRESENT: normal external ear exam Mouth exam: PRESENT: moist, tongue midline Neck exam: PRESENT: full ROM. ABSENT: carotid bruit, JVD, lymphadenopathy, thyromegaly Respiratory exam: PRESENT: clear to auscultation bhavin Cardiovascular exam: PRESENT: RRR. ABSENT: diastolic murmur, rubs, systolic murmur Pulses: PRESENT: normal dorsalis pedis pul, +2 pedal pulses bilateral Vascular exam: PRESENT: normal capillary refill GI/Abdominal exam: PRESENT: normal bowel sounds, soft. ABSENT: distended, guarding, mass, organolmegaly, rebound, tenderness Rectal exam: PRESENT: deferred Neurological exam: PRESENT: alert, awake, oriented to person, oriented to place , oriented to time, oriented to situation, CN II-XII grossly intact. ABSENT: motor sensory deficit Psychiatric exam: PRESENT: appropriate affect, normal mood. ABSENT: homicidal ideation, suicidal ideation Skin exam: PRESENT: dry, intact, warm. ABSENT: cyanosis, rash Results Laboratory Results: 01/17/18 04:09 01/17/18 04:09 01/16/18 01/16/18 22:56 22:56 Creatine Kinase 28 L CK-MB (CK-2) 0.57 Troponin I 0.029 Impressions: Chest X-Ray 01/16/18 10:29 IMPRESSION: Small left pleural effusion. Assessment & Plan - Diagnosis (1) Diabetic ketoacidosis Qualifiers: Diabetes mellitus type: type 2 Diabetes mellitus complication detail: without coma Qualified Code(s): E11.10 - Type 2 diabetes mellitus with ketoacidosis without coma Is this a current diagnosis for this admission?: Yes Plan: Currently all resolved (2) Bipolar disorder with depression Is this a current diagnosis for this admission?: Yes (3) Diabetes mellitus type 2 in obese Is this a current diagnosis for this admission?: Yes (4) HTN (hypertension) Qualifiers: Hypertension type: essential hypertension Qualified Code(s): I10 - Essential (primary) hypertension Is this a current diagnosis for this admission?: Yes (5) Nausea & vomiting Qualifiers: Vomiting Intractability: non-intractable Is this a current diagnosis for this admission?: Yes Plan: Clear from the reflex will get the Protonix 40 mg IV twice a day and the Maalox as needed will get the CT scan with IV contrast - Time Time Spent with patient: 15-24 minutes Medications reviewed and adjusted accordingly: Yes Anticipated discharge: Other Within: Other - Inpatient Certification Medical Necessity: Need Close Monitoring Due to Risk of Patient Decompensation, Need For IV Fluids 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
--- NOTE | 2018-01-19 10:43 | RADIOLOGY REPORT (SQ) ---
EXAM DESCRIPTION: CT ABD/PELVIS WITH IV ONLY COMPLETED DATE/TIME: 01/19/2018 10:26 am REASON FOR STUDY: Abdominal pain with leukocytosis COMPARISON: CT abdomen pelvis 08/03/2014 TECHNIQUE: CT scan of the abdomen and pelvis performed using helical scanning technique with dynamic intravenous contrast injection. No oral contrast. Images reviewed with lung, soft tissue, and bone windows. Reconstructed coronal and sagittal MPR images reviewed. Delayed images for evaluation of the urinary system also acquired. All images stored on PACS. All CT scanners at this facility use dose modulation, iterative reconstruction, and/or weight based d osing when appropriate to reduce radiation dose to as low as reasonably achievable (ALARA). [facility]: Dose Right [facility]: CareDose [facility]: Dose Right [facility]: Teradose 4D [facility]: Activaided Orthotics CONTRAST TYPE AND DOSE: contrast/concentration: Isovue 350.00 mg/ml; Total Contrast Delivered: 89.0 ml; Total Saline Delivered: 70.0 ml RENAL FUNCTION: GFR > 60. RADIATION DOSE: CT Rad equipment meets quality standard of care and radiation dose reduction techniq ues were employed. CTDIvol: 14.3 - 17.6 mGy. DLP: 1774 mGy-cm.. LIMITATIONS: None. FINDINGS: The distal half of the transverse colon, splenic flexure, and proximal descending colon ex hibit diffuse wall thickening, and luminal narrowing with minimal surrounding inflammatory change in the pericolic fat. No free intraperitoneal air. Trace free pelvic fluid. Normal enhancement of the superior mesenteric artery and vein. Findings likely represent infectious or inflammatory colitis. Ischemic colitis is possible. No evidence of colon or small bowel obstruction. Stomach decompressed. Appendix surgically absent. LOWER CHEST: Mild bibasilar atelectasis LIVER: Normal size. No masses. No dilated ducts. SPLEEN: Normal size. No focal lesions. PANCREAS: No masses. No significant calcifications. No adjacent inflammation or peripancreatic fluid collections. Pancreatic duct not dilated. GALLBLADDER: Surgically absent ADRENAL GLANDS: No significant masses or asymmetry. RIGHT KIDNEY AND URETER: No solid masses. 1.5 cm cyst right mid-pole kidney. No significant calcifi cations. No hydronephrosis or hydroureter. LEFT KIDNEY AND URETER: No solid masses. 6 cm left midpole cortical renal cyst. 3.5 cm left lower p ole renal cortical cyst No significant calcifications. No hydronephrosis or hydroureter. AORTA AND VESSELS: No aneurysm. No dissection. Renal arteries, SMA, celiac without stenosis. RETROPERITONEUM: No retroperitoneal adenopathy, hemorrhage or masses. BOWEL AND PERITONEAL CAVITY: As above APPENDIX: Surgically absent PELVIS: Post hysterectomy. Trace free pelvic fluid. Bladder decompressed with a Ledezma catheter. No adenopathy ABDOMINAL WALL: No masses. No hernias. BONES: No significant or acute findings. OTHER: No other significant finding. IMPRESSION: Transverse, splenic flexure, and descending colon colitis with wall thickening, luminal narrowing and mild surrounding pericolic inflammatory change. Differential is inflammatory bowel dis ease versus infectious or ischemic colitis. Post cholecystectomy, hysterectomy and appendectomy TECHNICAL DOCUMENTATION: JOB ID: [id number] Quality ID # [id number]: Final reports with documentation of one or more dose reduction techniques (e.g., Au tomated exposure control, adjustment of the mA and/or kV according to patient size, use of iterative reconstruction technique) 2010 [employer]- All Rights Reserved Reading location - IP/workstation name: [email or web address]
[2018-01-19] MEDS ORDERED: TRIMETHOBENZAMIDE HCL 300 MG CAPSULE ONE (22:16)
[2018-01-19] MEDS: QUETIAPINE FUMARATE 100 MG TABLET PO SCH (22:17)
[2018-01-19] MEDS: ATORVASTATIN CALCIUM 40 MG TABLET PO SCH (22:19)
[2018-01-19] MEDS: INSULIN LISPRO 100 UNIT/ML 3 ML VIAL SUBCUT PRN (22:27)
[2018-01-19] MEDS: INSULIN GLARGINE,HUM.REC.ANLOG 300 UNIT/3 ML INSULN.PEN SUBCUT SCH (22:33)
[2018-01-20] MEDS: METRONIDAZOLE 500 MG/NS RTU 500 MG/100 ML RTUPB IV SCH ×3 (02:20→17:22)
[2018-01-20] MEDS: ONDANSETRON HCL INJ/PF 4 MG/2 ML SDV IV PRN ×2 (03:25→08:40)
[2018-01-20] MEDS: PIPERACILLIN SODIUM/TAZOBACTAM 3.375 GM in NORMAL SALINE 100 ML IV SCH ×4 (03:26→20:05)
[2018-01-20 05:21] LABS: ABSOLUTE EOSINOPHILS # (AUTO) 0.1 10^3/uL (0.0-0.6); ABSOLUTE LYMPHOCYTES (AUTO) 1.1 10^3/uL (0.5-4.7); ABSOLUTE MONOCYTES (AUTO) 0.4 10^3/uL (0.1-1.4); ABSOLUTE NEUT (AUTO) 3.9 10^3/uL (1.7-8.2); BASOPHILS % (AUTO) 0.7 % (0-2); EOSINOPHILS % (AUTO) 2.2 % (0-6); HEMATOCRIT 34.3 % (36.0-47.0); HEMOGLOBIN 11.5 g/dL (12.0-15.5); LYMPHOCYTES % (AUTO) 19.7 % (13-45); MEAN CORPUSCULAR HEMOGLOBIN 28.2 pg (27.0-33.4); MEAN CORPUSCULAR HGB CONC 33.6 g/dL (32.0-36.0); MEAN CORPUSCULAR VOLUME 84 fl (80-97); MONOCYTES % (AUTO) 7.1 % (3-13); PLATELET COUNT 188 10^3/uL (150-450); RED BLOOD COUNT 4.09 10^6/uL (3.72-5.28); RED CELL DISTRIBUTION WIDTH 14.3 % (11.5-14.0); SEGMENTED NEUTROPHILS % (AUTO) 70.3 % (42-78); TOTAL CELLS COUNTED % (AUTO) 100 %; WHITE BLOOD COUNT 5.5 10^3/uL (4.0-10.5)
[2018-01-20 05:45] LABS: ALANINE AMINOTRANSFERASE 34 U/L (9-52); ALBUMIN 2.7 g/dL (3.5-5.0); ALKALINE PHOSPHATASE 137 U/L (38-126); ANION GAP 13 (5-19); ASPARTATE AMINO TRANSFERASE 26 U/L (14-36); BILIRUBIN,DIRECT 0.3 mg/dL (0.0-0.4); BILIRUBIN,TOTAL 0.7 mg/dL (0.2-1.3); BLOOD UREA NITROGEN 9 mg/dL (7-20); CALCIUM 8.6 mg/dL (8.4-10.2); CARBON DIOXIDE 19 mmol/L (22-30); CHLORIDE 108 mmol/L (98-107); GLUCOSE 208 mg/dL (75-110); POTASSIUM 3.4 mmol/L (3.6-5.0); SODIUM 140.3 mmol/L (137-145)
[2018-01-20] MEDS: TRIMETHOBENZAMIDE HCL 300 MG CAPSULE PO SCH ×3 (06:09→21:23)
[2018-01-20] MEDS: INSULIN LISPRO 100 UNIT/ML 3 ML VIAL SUBCUT PRN ×3 (08:36→21:18)
--- NOTE | 2018-01-20 10:38 | PDOC PROGRESS REPORT ---
Subjective Progress Note for:: 01/20/18 Subjective:: Patient is currently doing fair Patient's CT scan of the abdomen pelvis suggests a colitis currently on antibiotic waiting for surgical consult Patient's is still feeling some nauseating but better than yesterday Reason For Visit: DKA Physical Exam Vital Signs: Temp Pulse Resp BP Pulse Ox 98.3 F 103 H 18 160/88 H 100 01/20/18 07:12 01/20/18 07:12 01/20/18 07:12 01/20/18 07:12 01/20/18 07:12 Intake & Output 01/19/18 01/20/18 01/21/18 06:59 06:59 06:59 Intake Total 1700 1326 Output Total 4678 5850 Balance -6213 -2488 Weight 75.8 kg 74.4 kg General appearance: PRESENT: no acute distress, well-developed, well-nourished Head exam: PRESENT: atraumatic, normocephalic Eye exam: PRESENT: conjunctiva pink, EOMI, PERRLA. ABSENT: scleral icterus Ear exam: PRESENT: normal external ear exam Mouth exam: PRESENT: moist, tongue midline Neck exam: PRESENT: full ROM. ABSENT: carotid bruit, JVD, lymphadenopathy, thyromegaly Respiratory exam: PRESENT: clear to auscultation bhavin Cardiovascular exam: PRESENT: RRR. ABSENT: diastolic murmur, rubs, systolic murmur Pulses: PRESENT: normal dorsalis pedis pul, +2 pedal pulses bilateral Vascular exam: PRESENT: normal capillary refill GI/Abdominal exam: PRESENT: normal bowel sounds, soft. ABSENT: distended, guarding, mass, organolmegaly, rebound, tenderness Rectal exam: PRESENT: deferred Extremities exam: ABSENT: pedal edema Neurological exam: PRESENT: alert, awake, oriented to person, oriented to place , oriented to time, oriented to situation, CN II-XII grossly intact. ABSENT: motor sensory deficit Psychiatric exam: PRESENT: appropriate affect, normal mood. ABSENT: homicidal ideation, suicidal ideation Skin exam: PRESENT: dry, intact, warm. ABSENT: cyanosis, rash Results Laboratory Results: 01/20/18 04:41 01/20/18 04:41 01/20/18 01/20/18 04:41 04:41 WBC 5.5 RBC 4.09 Hgb 11.5 L Hct 34.3 L MCV 84 MCH 28.2 MCHC 33.6 RDW 14.3 H Plt Count 188 Seg Neutrophils % 70.3 Lymphocytes % 19.7 Monocytes % 7.1 Eosinophils % 2.2 Basophils % 0.7 Absolute Neutrophils 3.9 Absolute Lymphocytes 1.1 Absolute Monocytes 0.4 Absolute Eosinophils 0.1 Absolute Basophils 0.0 Sodium 140.3 Potassium 3.4 L Chloride 108 H Carbon Dioxide 19 L Anion Gap 13 BUN 9 Creatinine 0.78 Est GFR ( Amer) > 60 Est GFR (Non-Af Amer) > 60 Glucose 208 H Calcium 8.6 Total Bilirubin 0.7 AST 26 ALT 34 Alkaline Phosphatase 137 H Total Protein 5.0 L Albumin 2.7 L 01/16/18 01/16/18 22:56 22:56 Creatine Kinase 28 L CK-MB (CK-2) 0.57 Troponin I 0.029 Impressions: Chest X-Ray 01/16/18 10:29 IMPRESSION: Small left pleural effusion. Abdomen/Pelvis CT 01/18/18 17:50 IMPRESSION: Transverse, splenic flexure, and descending colon colitis with wall thickening, luminal narrowing and mild surrounding pericolic inflammatory change. Differential is inflammatory bowel disease versus infectious or ischemic colitis. Post cholecystectomy, hysterectomy and appendectomy Assessment & Plan - Diagnosis (1) Diabetic ketoacidosis Qualifiers: Diabetes mellitus type: type 2 Diabetes mellitus complication detail: without coma Qualified Code(s): E11.10 - Type 2 diabetes mellitus with ketoacidosis without coma Is this a current diagnosis for this admission?: Yes Plan: Currently all resolved (2) Bipolar disorder with depression Is this a current diagnosis for this admission?: Yes (3) Diabetes mellitus type 2 in obese Is this a current diagnosis for this admission?: Yes (4) HTN (hypertension) Qualifiers: Hypertension type: essential hypertension Qualified Code(s): I10 - Essential (primary) hypertension Is this a current diagnosis for this admission?: Yes (5) Nausea & vomiting Qualifiers: Vomiting Intractability: non-intractable Is this a current diagnosis for this admission?: Yes (6) Colitis Is this a current diagnosis for this admission?: Yes Plan: Continues to IV antibiotics will wait for the surgical consult for further evaluations - Time Time Spent with patient: 15-24 minutes Medications reviewed and adjusted accordingly: Yes Anticipated discharge: Home Within: Other - Inpatient Certification Based on my medical assessment, after consideration of the patient's comorbidities, presenting symptoms, or acuity I expect that the services needed warrant INPATIENT care.: Yes I certify that my determination is in accordance with my understanding of Medicare's requirements for reasonable and necessary INPATIENT services [42 CFR 412.3e].: Yes Medical Necessity: Need For IV Fluids, Need for IV Antibiotics 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
[2018-01-20] MEDS ORDERED: POTASSIUM CHLORIDE 10 MEQ CAPSULE.ER PO ONE ×2 (10:39→11:00)
[2018-01-20] MEDS: LISINOPRIL 10 MG TABLET PO SCH (10:47)
[2018-01-20] MEDS: PANTOPRAZOLE SODIUM 40 MG VIAL IV SCH ×2 (10:47→21:22)
--- NOTE | 2018-01-20 13:47 | PDOC CONSULTATION ---
Consultation Consult Date: 01/20/18 Consult reason:: colitis History of Present Illness Admission Date/PCP: 01/16/18 12:11 ROSALINO HOWARD History of Present Illness: LETTY GOSS is a 67 year old female with diabetes, depression, admitted on 01/16/18 for severe abdominal pain, subsequently she developed diarrhea without hematochetia, started on IV Flagyl and Zosyn with improvement of the abdominal pain, resolution of the diarrhea. Her stools hav ebeen sent for cx and are pending. C. Difficilis toxin in the stools is negative. The patient reports eating "junk food" and large amount of chicken and ground beef. She admits not to follow good cleaning practice while handling the chicken. She denies working with animals, eating at restaurants, [employer], visiting nursing homes, and friends or family members affected with GI problems. A CT scan A/P was done on admission and shows colitis (transverse and left colon). Past Medical History Cardiac Medical History: Reports: Hyperlipidema, Hypertension Denies: Coronary Artery Disease, Myocardial Infarction Pulmonary Medical History: Denies: Asthma, Bronchitis, Chronic Obstructive Pulmonary Disease (COPD), Pneumonia Neurological Medical History: Reports: Migraine Comment Only: Seizures - ? Unsure, going to sleep study after preop appt Endocrine Medical History: Reports: Diabetes Mellitus Type 2 GI Medical History: Reports: Gastroesophageal Reflux Disease Musculoskeltal Medical History: Denies: Arthritis Psychiatric Medical History: Reports: Bipolar Disorder, Depression Hematology: Reports: Anemia - As a child Denies: Sickle Cell Disease Past Surgical History Past Surgical History: Reports: Cholecystectomy, Hysterectomy, Tonsillectomy Denies: Amputation Social History Smoking Status: Never Smoker Frequency of Alcohol Use: None Hx Recreational Drug Use: No Hx Prescription Drug Abuse: No - Advance Directive Resuscitation Status: Full Code Family History Family History: Reviewed & Not Pertinent, Arthritis, CAD, DM, Hyperlipidemia, Hypertension, Malignancy Parental Family History Reviewed: Yes - see above Children Family History Reviewed: Yes - see above Sibling(s) Family History Reviewed.: Yes - see above Medication/Allergy Home Medications: Gabapentin [Neurontin 400 mg Capsule] 400 mg PO Q4 01/16/18 Glimepiride [Amaryl 4 mg Tablet] 4 mg PO DAILY 01/16/18 Hydrocodone/Acetaminophen [Hydrocodone-Acetamin 5-325 mg] 1 tab PO Q12HP PRN Lisinopril [Prinivil] 20 mg PO DAILY 01/16/18 Lorazepam [Ativan 1 mg Tablet] 1 mg PO Q8HP PRN 01/16/18 Quetiapine Fumarate [Seroquel] 500 mg PO QHS 01/16/18 Rizatriptan Benzoate [Maxalt] 10 mg PO DAILYP PRN 01/16/18 Rosuvastatin Calcium [Crestor 20 mg Tablet] 20 mg PO DAILY 01/16/18 Sitagliptin Phos/Metformin HCl [Janumet 50-1,000 mg Tablet] 1 tab PO BIDPCBS Tizanidine HCl [Zanaflex 4 mg Tablet] 4 mg PO Q12HP PRN 01/16/18 Tramadol HCl [Ultram 50 mg Tablet] 50 mg PO Q12HP PRN 01/16/18 Allergies/Adverse Reactions: codeine [Codeine] Allergy (Severe, Verified 08/27/15 19:15) Anaphylaxis dihydroergotamine mesylate [From Dhe] Allergy (Severe, Verified 08/27/15 19:15) Loss of balance/severe dizziness escitalopram oxalate [From Lexapro] Adverse Reaction (Severe, Verified 08/27/15 19:15) Suicidal Physical Exam Vital Signs: Temp Pulse Resp BP Pulse Ox 98.5 F 100 18 151/83 H 93 01/20/18 11:10 01/20/18 11:10 01/20/18 11:10 01/20/18 11:10 01/20/18 11:10 Intake & Output 01/19/18 01/20/18 01/21/18 06:59 06:59 06:59 Intake Total 1700 1326 100 Output Total 4675 9810 500 Balance -6415 -0895 -696 Weight 75.8 kg 74.4 kg General appearance: PRESENT: no acute distress, cooperative Head exam: PRESENT: atraumatic Eye exam: PRESENT: EOMI Mouth exam: PRESENT: moist, neck supple, tongue midline Teeth exam: PRESENT: edentulous Neck exam: PRESENT: full ROM Respiratory exam: PRESENT: clear to auscultation bhavin Cardiovascular exam: PRESENT: RRR GI/Abdominal exam: PRESENT: normal bowel sounds, soft - throughout all 4 quadrants Rectal exam: PRESENT: deferred Extremities exam: PRESENT: full ROM Musculoskeletal exam: PRESENT: full ROM Neurological exam: PRESENT: alert, awake, oriented to time, oriented to situation Skin exam: PRESENT: warm Results Laboratory Results: 01/20/18 04:41 01/20/18 04:41 01/20/18 01/20/18 04:41 04:41 WBC 5.5 RBC 4.09 Hgb 11.5 L Hct 34.3 L MCV 84 MCH 28.2 MCHC 33.6 RDW 14.3 H Plt Count 188 Seg Neutrophils % 70.3 Lymphocytes % 19.7 Monocytes % 7.1 Eosinophils % 2.2 Basophils % 0.7 Absolute Neutrophils 3.9 Absolute Lymphocytes 1.1 Absolute Monocytes 0.4 Absolute Eosinophils 0.1 Absolute Basophils 0.0 Sodium 140.3 Potassium 3.4 L Chloride 108 H Carbon Dioxide 19 L Anion Gap 13 BUN 9 Creatinine 0.78 Est GFR ( Amer) > 60 Est GFR (Non-Af Amer) > 60 Glucose 208 H Calcium 8.6 Total Bilirubin 0.7 AST 26 ALT 34 Alkaline Phosphatase 137 H Total Protein 5.0 L Albumin 2.7 L 01/16/18 01/16/18 22:56 22:56 Creatine Kinase 28 L CK-MB (CK-2) 0.57 Troponin I 0.029 Impressions: Chest X-Ray 01/16/18 10:29 IMPRESSION: Small left pleural effusion. Abdomen/Pelvis CT 01/18/18 17:50 IMPRESSION: Transverse, splenic flexure, and descending colon colitis with wall thickening, luminal narrowing and mild surrounding pericolic inflammatory change. Differential is inflammatory bowel disease versus infectious or ischemic colitis. Post cholecystectomy, hysterectomy and appendectomy Assessment & Plan - Diagnosis (1) Colitis Is this a current diagnosis for this admission?: Yes - Plan Summary Plan Summary: A/ Abdominal pain and diarrhea, now resoled Residual nausea Patient tolerating po well WBC normalized since admission (6 K today) Stool exam positive for WBC Negative C. Difficilis toxin in stools Stool cx negative so far CT scan significant for transverse and left colitis Colitis most likely infectious or toxi-infectiuos P/ Continue current antibiotic regimen for additional 48 hrs Add probiotic 2 tabs TID Yogurt 1 cup BID Continue Probiotic and yogurt at home x 2 weeks or longer She will need elective colonoscopy in 3 months; sooner if symptoms do not marlin within a reasonable time. I will not need to see this patient anymore as inpatient. Please, call me with questions. I will sign off.
[2018-01-20] MEDS: LACTOBACILLUS ACIDOPHILUS 250 MG TAB PO SCH ×2 (14:24→17:22)
[2018-01-20] MEDS: NORMAL SALINE 1000 ML 1,000 ML IV PRN (14:25)
[2018-01-20] MEDS ORDERED: LACTOBACILLUS ACIDOPHILUS 250 MG TAB PO SCH (18:00)
[2018-01-20] MEDS ORDERED: LISINOPRIL 10 MG TABLET PO ONE (20:30)
[2018-01-20] MEDS: INSULIN GLARGINE,HUM.REC.ANLOG 300 UNIT/3 ML INSULN.PEN SUBCUT SCH (21:21)
[2018-01-20] MEDS: QUETIAPINE FUMARATE 100 MG TABLET PO SCH (21:22)
[2018-01-20] MEDS: ATORVASTATIN CALCIUM 40 MG TABLET PO SCH (21:22)
[2018-01-21] MEDS: METRONIDAZOLE 500 MG/NS RTU 500 MG/100 ML RTUPB IV SCH ×3 (01:23→17:33)
[2018-01-21] MEDS: PIPERACILLIN SODIUM/TAZOBACTAM 3.375 GM in NORMAL SALINE 100 ML IV SCH ×4 (02:23→20:31)
[2018-01-21 04:51] LABS: ABSOLUTE BASOPHILS # (AUTO) 0.1 10^3/uL (0.0-0.2); ABSOLUTE EOSINOPHILS # (AUTO) 0.1 10^3/uL (0.0-0.6); ABSOLUTE LYMPHOCYTES (AUTO) 1.5 10^3/uL (0.5-4.7); ABSOLUTE MONOCYTES (AUTO) 0.5 10^3/uL (0.1-1.4); ABSOLUTE NEUT (AUTO) 3.2 10^3/uL (1.7-8.2); EOSINOPHILS % (AUTO) 2.7 % (0-6); HEMATOCRIT 33.6 % (36.0-47.0); HEMOGLOBIN 11.3 g/dL (12.0-15.5); LYMPHOCYTES % (AUTO) 27.7 % (13-45); MEAN CORPUSCULAR HEMOGLOBIN 28.2 pg (27.0-33.4); MEAN CORPUSCULAR HGB CONC 33.5 g/dL (32.0-36.0); MEAN CORPUSCULAR VOLUME 84 fl (80-97); PLATELET COUNT 207 10^3/uL (150-450); RED BLOOD COUNT 3.99 10^6/uL (3.72-5.28); RED CELL DISTRIBUTION WIDTH 14.1 % (11.5-14.0); SEGMENTED NEUTROPHILS % (AUTO) 59.6 % (42-78); TOTAL CELLS COUNTED % (AUTO) 100 %; WHITE BLOOD COUNT 5.3 10^3/uL (4.0-10.5)
[2018-01-21 05:13] LABS: ANION GAP 8 (5-19); BLOOD UREA NITROGEN 11 mg/dL (7-20); CARBON DIOXIDE 24 mmol/L (22-30); CHLORIDE 110 mmol/L (98-107); GLUCOSE 201 mg/dL (75-110); POTASSIUM 3.4 mmol/L (3.6-5.0); SODIUM 141.9 mmol/L (137-145)
[2018-01-21] MEDS: TRIMETHOBENZAMIDE HCL 300 MG CAPSULE PO SCH ×3 (05:31→21:09)
[2018-01-21] MEDS: ONDANSETRON HCL INJ/PF 4 MG/2 ML SDV IV PRN ×2 (08:30→13:20)
--- NOTE | 2018-01-21 08:35 | PDOC PROGRESS REPORT ---
Subjective Progress Note for:: 01/21/18 Subjective:: Patient denied any more abdominal pain. No fever or chills. No chest pain or difficulty with breathing. No fever or chills. Reason For Visit: DKA Physical Exam Vital Signs: Temp Pulse Resp BP Pulse Ox 97.9 F 92 20 108/63 93 01/21/18 03:53 01/21/18 07:00 01/21/18 03:53 01/21/18 03:53 01/21/18 03:53 Intake & Output 01/20/18 01/21/18 01/22/18 06:59 06:59 06:59 Intake Total 2326 1918 Output Total 3820 1800 Balance -1494 118 Weight 74.4 kg 74.8 kg Physical Exam: General appearance: PRESENT: no acute distress, obese Head exam: PRESENT: atraumatic, normocephalic Eye exam: PRESENT: conjunctiva pink, EOMI, PERRLA. ABSENT: scleral icterus Ear exam: PRESENT: normal external ear exam Mouth exam: PRESENT: moist Teeth exam: PRESENT: poor dentition Respiratory exam: PRESENT: clear to auscultation bhavin Cardiovascular exam: PRESENT: RRR. ABSENT: diastolic murmur, rubs, systolic murmur Vascular exam: ABSENT: pallor GI/Abdominal exam: PRESENT: normal bowel sounds, soft, tenderness - lower quadrants. ABSENT: rebound, guarding, organomegaly Extremities exam: PRESENT: pedal edema Musculoskeletal exam: PRESENT: deformity - related to arthritis Neurological exam: PRESENT: alert, awake, oriented to person, oriented to place , oriented to time, oriented to situation, CN II-XII grossly intact. ABSENT: motor sensory deficit Psychiatric exam: PRESENT: appropriate affect, normal mood. ABSENT: homicidal ideation, suicidal ideation Skin exam: PRESENT: dry, intact, warm. ABSENT: cyanosis, rash Results Laboratory Results: 01/21/18 04:12 01/21/18 04:12 01/21/18 01/21/18 04:12 04:12 WBC 5.3 RBC 3.99 Hgb 11.3 L Hct 33.6 L MCV 84 MCH 28.2 MCHC 33.5 RDW 14.1 H Plt Count 207 Seg Neutrophils % 59.6 Lymphocytes % 27.7 Monocytes % 9.0 Eosinophils % 2.7 Basophils % 1.0 Absolute Neutrophils 3.2 Absolute Lymphocytes 1.5 Absolute Monocytes 0.5 Absolute Eosinophils 0.1 Absolute Basophils 0.1 Sodium 141.9 Potassium 3.4 L Chloride 110 H Carbon Dioxide 24 Anion Gap 8 BUN 11 Creatinine 0.75 Est GFR ( Amer) > 60 Est GFR (Non-Af Amer) > 60 Glucose 201 H Calcium 9.0 01/16/18 01/16/18 22:56 22:56 Creatine Kinase 28 L CK-MB (CK-2) 0.57 Troponin I 0.029 Impressions: Chest X-Ray 01/16/18 10:29 IMPRESSION: Small left pleural effusion. Abdomen/Pelvis CT 01/18/18 17:50 IMPRESSION: Transverse, splenic flexure, and descending colon colitis with wall thickening, luminal narrowing and mild surrounding pericolic inflammatory change. Differential is inflammatory bowel disease versus infectious or ischemic colitis. Post cholecystectomy, hysterectomy and appendectomy Assessment & Plan - Diagnosis (1) Diabetes mellitus type 2 with ketoacidosis, uncontrolled Is this a current diagnosis for this admission?: Yes (2) Diabetes mellitus type 2 in obese Is this a current diagnosis for this admission?: Yes Plan: Increase Lantus Insulin tp 40 units sc daily. Continue Humalog Insulin sliding scale achs. (3) Diarrhea Qualifiers: Diarrhea type: unspecified type Qualified Code(s): R19.7 - Diarrhea, unspecified Is this a current diagnosis for this admission?: Yes Plan: Improving. Potassium replacement in progress. (4) Hypotension Qualifiers: Hypotension type: unspecified hypotension type Qualified Code(s): I95.9 - Hypotension, unspecified Is this a current diagnosis for this admission?: Yes Plan: Resolved (5) Lactic acidosis Is this a current diagnosis for this admission?: Yes Plan: Resolved (6) HTN (hypertension) Qualifiers: Hypertension type: essential hypertension Qualified Code(s): I10 - Essential (primary) hypertension Is this a current diagnosis for this admission?: Yes Plan: Continue current medication management. (7) HLD (hyperlipidemia) Qualifiers: Hyperlipidemia type: unspecified Qualified Code(s): E78.5 - Hyperlipidemia , unspecified Is this a current diagnosis for this admission?: Yes Plan: Continue current medication management. (8) GERD (gastroesophageal reflux disease) Qualifiers: Esophagitis presence: without esophagitis Qualified Code(s): K21.9 - Gastro -esophageal reflux disease without esophagitis Is this a current diagnosis for this admission?: Yes Plan: D/C Carafate. Continue other current medication management. (9) Bipolar disorder with depression Is this a current diagnosis for this admission?: Yes Plan: Continue current medication management. (10) Anxiety Is this a current diagnosis for this admission?: Yes Plan: Continue current medication management. (11) Migraine headache Qualifiers: Migraine type: unspecified Intractability: not intractable Is this a current diagnosis for this admission?: Yes Plan: Continue current medication management. (12) Diverticulitis of sigmoid colon Is this a current diagnosis for this admission?: Yes Plan: Continue oral Flagyl and Ciprofloxacin coverage. D/C Carafate due to drug-drug interaction. - Time Time Spent with patient: 25-34 minutes Medications reviewed and adjusted accordingly: Yes Anticipated discharge: Home with Homehealth Within: Other - Inpatient Certification Based on my medical assessment, after consideration of the patient's comorbidities, presenting symptoms, or acuity I expect that the services needed warrant INPATIENT care.: Yes I certify that my determination is in accordance with my understanding of Medicare's requirements for reasonable and necessary INPATIENT services [42 CFR 412.3e].: Yes Medical Necessity: Need Close Monitoring Due to Risk of Patient Decompensation, Need For IV Fluids, Need For Continuous Telemetry Monitoring, Risk of Complication if Not Cared For in Hospital 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 Potassium replacement therapy and obtain serum Mag. level. D/C Carafate for drug-drug interaction. Continue all other current medication management. Obtain BMP in am.
[2018-01-21] MEDS: LISINOPRIL 10 MG TABLET PO SCH ×2 (10:12→17:33)
[2018-01-21] MEDS: POTASSIUM CHLORIDE 10 MEQ CAPSULE.ER PO SCH ×2 (10:13→13:19)
[2018-01-21] MEDS: LACTOBACILLUS ACIDOPHILUS 250 MG TAB PO SCH ×3 (10:13→17:33)
[2018-01-21] MEDS: INSULIN LISPRO 100 UNIT/ML 3 ML VIAL SUBCUT PRN ×3 (12:21→22:16)
[2018-01-21] MEDS: NORMAL SALINE 1000 ML 1,000 ML IV PRN (20:13)
[2018-01-21] MEDS: QUETIAPINE FUMARATE 100 MG TABLET PO SCH (21:09)
[2018-01-21] MEDS: ATORVASTATIN CALCIUM 40 MG TABLET PO SCH (21:09)
[2018-01-21] MEDS ORDERED: INSULIN GLARGINE,HUM.REC.ANLOG 300 UNIT/3 ML INSULN.PEN SUBCUT SCH (22:00)
[2018-01-22] MEDS: METRONIDAZOLE 500 MG/NS RTU 500 MG/100 ML RTUPB IV SCH ×3 (03:31→17:10)
[2018-01-22] MEDS: LANSOPRAZOLE 30 MG TAB.RAP.DR PO SCH (05:15)
[2018-01-22] MEDS: PIPERACILLIN SODIUM/TAZOBACTAM 3.375 GM in NORMAL SALINE 100 ML IV SCH ×4 (05:15→20:29)
[2018-01-22] MEDS: TRIMETHOBENZAMIDE HCL 300 MG CAPSULE PO SCH ×3 (05:15→21:05)
[2018-01-22 06:37] LABS: ANION GAP 8 (5-19); BLOOD UREA NITROGEN 16 mg/dL (7-20); CALCIUM 9.1 mg/dL (8.4-10.2); CARBON DIOXIDE 24 mmol/L (22-30); CHLORIDE 108 mmol/L (98-107); GLUCOSE 261 mg/dL (75-110); SODIUM 139.7 mmol/L (137-145)
[2018-01-22] MEDS: HYDROCODONE/ACETAMINOPHEN 5-325 MG TABLET PO PRN (06:57)
[2018-01-22] MEDS: INSULIN LISPRO 100 UNIT/ML 3 ML VIAL SUBCUT PRN ×4 (08:44→21:35)
[2018-01-22] MEDS: LACTOBACILLUS ACIDOPHILUS 250 MG TAB PO SCH ×3 (10:35→17:10)
[2018-01-22] MEDS: LISINOPRIL 10 MG TABLET PO SCH ×2 (10:36→17:10)
[2018-01-22] MEDS: NORMAL SALINE 1000 ML 1,000 ML IV PRN (10:39)
[2018-01-22] MEDS: ONDANSETRON HCL INJ/PF 4 MG/2 ML SDV IV PRN (10:45)
--- NOTE | 2018-01-22 18:54 | PDOC PROGRESS REPORT ---
Subjective Progress Note for:: 01/22/18 Subjective:: Patient denied any chest pain or difficulty with breathing. No fever or chills. No nausea, vomiting, or abdominal pain. Appetite and p.o intake satisfactory. Her accuchek remain elevated despite her current insulin management. Reason For Visit: DKA Physical Exam Vital Signs: Temp Pulse Resp BP Pulse Ox 99.7 F 99 19 152/88 H 93 01/22/18 15:55 01/22/18 15:55 01/22/18 15:55 01/22/18 15:55 01/22/18 15:55 Intake & Output 01/21/18 01/22/18 01/23/18 06:59 06:59 06:59 Intake Total 1918 2144 2174 Output Total 1800 2650 2700 Balance 118 -506 -526 Weight 74.8 kg 75.2 kg Physical Exam: General appearance: PRESENT: no acute distress, obese Head exam: PRESENT: atraumatic, normocephalic Eye exam: PRESENT: conjunctiva pink, EOMI, PERRLA. ABSENT: scleral icterus Ear exam: PRESENT: normal external ear exam Mouth exam: PRESENT: moist Teeth exam: PRESENT: poor dentition Respiratory exam: PRESENT: clear to auscultation bhavin Cardiovascular exam: PRESENT: RRR. ABSENT: diastolic murmur, rubs, systolic murmur Vascular exam: ABSENT: pallor GI/Abdominal exam: PRESENT: normal bowel sounds, soft, tenderness - lower quadrants. ABSENT: rebound, guarding, organomegaly Extremities exam: PRESENT: pedal edema Musculoskeletal exam: PRESENT: deformity - related to arthritis Neurological exam: PRESENT: alert, awake, oriented to person, oriented to place , oriented to time, oriented to situation, CN II-XII grossly intact. ABSENT: motor sensory deficit Psychiatric exam: PRESENT: appropriate affect, normal mood. ABSENT: homicidal ideation, suicidal ideation Skin exam: PRESENT: dry, intact, warm. ABSENT: cyanosis, rash Results Laboratory Results: 01/21/18 04:12 01/22/18 05:00 01/22/18 05:00 Sodium 139.7 Potassium 4.0 Chloride 108 H Carbon Dioxide 24 Anion Gap 8 BUN 16 Creatinine 0.80 Est GFR ( Amer) > 60 Est GFR (Non-Af Amer) > 60 Glucose 261 H Calcium 9.1 01/16/18 01/16/18 22:56 22:56 Creatine Kinase 28 L CK-MB (CK-2) 0.57 Troponin I 0.029 Impressions: Chest X-Ray 01/16/18 10:29 IMPRESSION: Small left pleural effusion. Abdomen/Pelvis CT 01/18/18 17:50 IMPRESSION: Transverse, splenic flexure, and descending colon colitis with wall thickening, luminal narrowing and mild surrounding pericolic inflammatory change. Differential is inflammatory bowel disease versus infectious or ischemic colitis. Post cholecystectomy, hysterectomy and appendectomy Assessment & Plan - Diagnosis (1) Diabetes mellitus type 2 with ketoacidosis, uncontrolled Is this a current diagnosis for this admission?: Yes (2) Diabetes mellitus type 2 in obese Is this a current diagnosis for this admission?: Yes (3) Diarrhea Qualifiers: Diarrhea type: unspecified type Qualified Code(s): R19.7 - Diarrhea, unspecified Is this a current diagnosis for this admission?: Yes (4) Hypotension Qualifiers: Hypotension type: unspecified hypotension type Qualified Code(s): I95.9 - Hypotension, unspecified Is this a current diagnosis for this admission?: Yes (5) Lactic acidosis Is this a current diagnosis for this admission?: Yes (6) HTN (hypertension) Qualifiers: Hypertension type: essential hypertension Qualified Code(s): I10 - Essential (primary) hypertension Is this a current diagnosis for this admission?: Yes (7) HLD (hyperlipidemia) Qualifiers: Hyperlipidemia type: unspecified Qualified Code(s): E78.5 - Hyperlipidemia , unspecified Is this a current diagnosis for this admission?: Yes (8) GERD (gastroesophageal reflux disease) Qualifiers: Esophagitis presence: without esophagitis Qualified Code(s): K21.9 - Gastro -esophageal reflux disease without esophagitis Is this a current diagnosis for this admission?: Yes (9) Bipolar disorder with depression Is this a current diagnosis for this admission?: Yes (10) Anxiety Is this a current diagnosis for this admission?: Yes (11) Migraine headache Qualifiers: Migraine type: unspecified Intractability: not intractable Is this a current diagnosis for this admission?: Yes (12) Diverticulitis of sigmoid colon Is this a current diagnosis for this admission?: Yes - Time Time Spent with patient: 25-34 minutes Medications reviewed and adjusted accordingly: Yes Anticipated discharge: Home with Homehealth Within: Other - Inpatient Certification Based on my medical assessment, after consideration of the patient's comorbidities, presenting symptoms, or acuity I expect that the services needed warrant INPATIENT care.: Yes I certify that my determination is in accordance with my understanding of Medicare's requirements for reasonable and necessary INPATIENT services [42 CFR 412.3e].: Yes Medical Necessity: Need Close Monitoring Due to Risk of Patient Decompensation, Need For IV Fluids, Need For Continuous Telemetry Monitoring, Need for IV Antibiotics, Risk of Complication if Not Cared For in Hospital Post Hospital Care: D/C [facility] Documentation - Plan Summary Plan Summary: Increase Lantus insulin to 40 units s.c Q12 hours. Maintain on all other current medication management. Request for DM teaching nurse consultation regarding insulin management at home upon discharge.
[2018-01-22] MEDS: QUETIAPINE FUMARATE 100 MG TABLET PO SCH (21:04)
[2018-01-22] MEDS: ATORVASTATIN CALCIUM 40 MG TABLET PO SCH (21:04)
[2018-01-22] MEDS: INSULIN GLARGINE,HUM.REC.ANLOG 300 UNIT/3 ML INSULN.PEN SUBCUT SCH (21:34)
[2018-01-23] MEDS: METRONIDAZOLE 500 MG/NS RTU 500 MG/100 ML RTUPB IV SCH ×3 (02:19→17:01)
[2018-01-23] MEDS: PIPERACILLIN SODIUM/TAZOBACTAM 3.375 GM in NORMAL SALINE 100 ML IV SCH ×3 (04:02→17:00)
[2018-01-23] MEDS: TRIMETHOBENZAMIDE HCL 300 MG CAPSULE PO SCH ×3 (05:05→21:32)
[2018-01-23] MEDS: LANSOPRAZOLE 30 MG TAB.RAP.DR PO SCH (05:05)
[2018-01-23] MEDS: ONDANSETRON HCL INJ/PF 4 MG/2 ML SDV IV PRN ×2 (05:59→11:01)
[2018-01-23] MEDS: INSULIN LISPRO 100 UNIT/ML 3 ML VIAL SUBCUT PRN ×4 (08:46→21:29)
[2018-01-23] MEDS: LACTOBACILLUS ACIDOPHILUS 250 MG TAB PO SCH ×3 (11:12→17:01)
[2018-01-23] MEDS: LISINOPRIL 10 MG TABLET PO SCH ×2 (11:12→17:02)
[2018-01-23] MEDS: INSULIN GLARGINE,HUM.REC.ANLOG 300 UNIT/3 ML INSULN.PEN SUBCUT SCH ×2 (11:13→21:29)
[2018-01-23] MEDS: NORMAL SALINE 1000 ML 1,000 ML IV PRN (13:29)
--- NOTE | 2018-01-23 18:44 | PDOC PROGRESS REPORT ---
Subjective Progress Note for:: 01/23/18 Subjective:: Patient denied any chest pain or difficulty with breathing. No fever or chills. No nausea, vomiting, or abdominal pain. Reason For Visit: DKA Physical Exam Vital Signs: Temp Pulse Resp BP Pulse Ox 99.5 F 92 16 179/90 H 97 01/23/18 15:36 01/23/18 15:36 01/23/18 15:36 01/23/18 15:36 01/23/18 15:36 Intake & Output 01/22/18 01/23/18 01/24/18 06:59 06:59 06:59 Intake Total 2144 3724 795 Output Total 2650 2900 2300 Balance -506 824 -1505 Weight 75.2 kg 75.6 kg Physical Exam: General appearance: PRESENT: no acute distress, obese Head exam: PRESENT: atraumatic, normocephalic Eye exam: PRESENT: conjunctiva pink, EOMI, PERRLA. ABSENT: scleral icterus Ear exam: PRESENT: normal external ear exam Mouth exam: PRESENT: moist Teeth exam: PRESENT: poor dentition Respiratory exam: PRESENT: clear to auscultation bhavin Cardiovascular exam: PRESENT: RRR. ABSENT: diastolic murmur, rubs, systolic murmur Vascular exam: ABSENT: pallor GI/Abdominal exam: PRESENT: normal bowel sounds, soft, tenderness - lower quadrants. ABSENT: rebound, guarding, organomegaly Extremities exam: PRESENT: pedal edema Musculoskeletal exam: PRESENT: deformity - related to arthritis Neurological exam: PRESENT: alert, awake, oriented to person, oriented to place , oriented to time, oriented to situation, CN II-XII grossly intact. ABSENT: motor sensory deficit Psychiatric exam: PRESENT: appropriate affect, normal mood. ABSENT: homicidal ideation, suicidal ideation Skin exam: PRESENT: dry, intact, warm. ABSENT: cyanosis, rash Results Laboratory Results: 01/21/18 04:12 01/22/18 05:00 01/16/18 01/16/18 22:56 22:56 Creatine Kinase 28 L CK-MB (CK-2) 0.57 Troponin I 0.029 Impressions: Chest X-Ray 01/16/18 10:29 IMPRESSION: Small left pleural effusion. Abdomen/Pelvis CT 01/18/18 17:50 IMPRESSION: Transverse, splenic flexure, and descending colon colitis with wall thickening, luminal narrowing and mild surrounding pericolic inflammatory change. Differential is inflammatory bowel disease versus infectious or ischemic colitis. Post cholecystectomy, hysterectomy and appendectomy Assessment & Plan - Diagnosis (1) Diabetes mellitus type 2 with ketoacidosis, uncontrolled Is this a current diagnosis for this admission?: Yes (2) Diabetes mellitus type 2 in obese Is this a current diagnosis for this admission?: Yes (3) Diarrhea Qualifiers: Diarrhea type: unspecified type Qualified Code(s): R19.7 - Diarrhea, unspecified Is this a current diagnosis for this admission?: Yes (4) Hypotension Qualifiers: Hypotension type: unspecified hypotension type Qualified Code(s): I95.9 - Hypotension, unspecified Is this a current diagnosis for this admission?: Yes (5) Lactic acidosis Is this a current diagnosis for this admission?: Yes (6) HTN (hypertension) Qualifiers: Hypertension type: essential hypertension Qualified Code(s): I10 - Essential (primary) hypertension Is this a current diagnosis for this admission?: Yes (7) HLD (hyperlipidemia) Qualifiers: Hyperlipidemia type: unspecified Qualified Code(s): E78.5 - Hyperlipidemia , unspecified Is this a current diagnosis for this admission?: Yes (8) GERD (gastroesophageal reflux disease) Qualifiers: Esophagitis presence: without esophagitis Qualified Code(s): K21.9 - Gastro -esophageal reflux disease without esophagitis Is this a current diagnosis for this admission?: Yes (9) Bipolar disorder with depression Is this a current diagnosis for this admission?: Yes (10) Anxiety Is this a current diagnosis for this admission?: Yes (11) Migraine headache Qualifiers: Migraine type: unspecified Intractability: not intractable Is this a current diagnosis for this admission?: Yes (12) Diverticulitis of sigmoid colon Is this a current diagnosis for this admission?: Yes - Time Time Spent with patient: 25-34 minutes Medications reviewed and adjusted accordingly: Yes Anticipated discharge: Home with Homehealth Within: Other - Inpatient Certification Based on my medical assessment, after consideration of the patient's comorbidities, presenting symptoms, or acuity I expect that the services needed warrant INPATIENT care.: Yes I certify that my determination is in accordance with my understanding of Medicare's requirements for reasonable and necessary INPATIENT services [42 CFR 412.3e].: Yes Medical Necessity: Need Close Monitoring Due to Risk of Patient Decompensation, Need For IV Fluids, Need For Continuous Telemetry Monitoring, Risk of Complication if Not Cared For in Hospital Post Hospital Care: D/C [facility] Documentation - Plan Summary Plan Summary: Maintain on current medication management. Possible discharge home tomorrow.
[2018-01-23] MEDS: QUETIAPINE FUMARATE 100 MG TABLET PO SCH (21:30)
[2018-01-23] MEDS: ATORVASTATIN CALCIUM 40 MG TABLET PO SCH (21:30)
[2018-01-24] MEDS: METRONIDAZOLE 500 MG/NS RTU 500 MG/100 ML RTUPB IV SCH (01:24)
[2018-01-24] MEDS: NORMAL SALINE 1000 ML 1,000 ML IV PRN (01:24)
[2018-01-24] MEDS: ONDANSETRON HCL INJ/PF 4 MG/2 ML SDV IV PRN (01:26)
[2018-01-24] MEDS: LANSOPRAZOLE 30 MG TAB.RAP.DR PO SCH (06:05)
[2018-01-24] MEDS: TRIMETHOBENZAMIDE HCL 300 MG CAPSULE PO SCH ×3 (06:06→21:38)
[2018-01-24] MEDS: INSULIN LISPRO 100 UNIT/ML 3 ML VIAL SUBCUT PRN ×4 (08:34→21:37)
--- NOTE | 2018-01-24 08:52 | PDOC PROGRESS REPORT ---
Subjective Progress Note for:: 01/24/18 Subjective:: No chest pain or difficulty with breathing. No fever or chills. No nausea, vomiting, or abdominal pain. Reason For Visit: DKA Physical Exam Vital Signs: Temp Pulse Resp BP Pulse Ox 98.3 F 91 16 139/82 H 92 01/24/18 07:19 01/24/18 07:19 01/24/18 07:19 01/24/18 07:19 01/24/18 07:19 Intake & Output 01/23/18 01/24/18 01/25/18 06:59 06:59 06:59 Intake Total 3724 2452 Output Total 2900 5900 Balance 824 -3448 Weight 75.6 kg 74.2 kg Physical Exam: General appearance: PRESENT: no acute distress, obese Head exam: PRESENT: atraumatic, normocephalic Eye exam: PRESENT: conjunctiva pink, EOMI, PERRLA. ABSENT: scleral icterus Ear exam: PRESENT: normal external ear exam Mouth exam: PRESENT: moist Teeth exam: PRESENT: poor dentition Respiratory exam: PRESENT: clear to auscultation bhavin Cardiovascular exam: PRESENT: RRR. ABSENT: diastolic murmur, rubs, systolic murmur Vascular exam: ABSENT: pallor GI/Abdominal exam: PRESENT: normal bowel sounds, soft, tenderness - lower quadrants. ABSENT: rebound, guarding, organomegaly Extremities exam: PRESENT: pedal edema Musculoskeletal exam: PRESENT: deformity - related to arthritis Neurological exam: PRESENT: alert, awake, oriented to person, oriented to place , oriented to time, oriented to situation, CN II-XII grossly intact. ABSENT: motor sensory deficit Psychiatric exam: PRESENT: appropriate affect, normal mood. ABSENT: homicidal ideation, suicidal ideation Skin exam: PRESENT: dry, intact, warm. ABSENT: cyanosis, rash Results Laboratory Results: 01/21/18 04:12 01/22/18 05:00 01/16/18 01/16/18 22:56 22:56 Creatine Kinase 28 L CK-MB (CK-2) 0.57 Troponin I 0.029 Impressions: Chest X-Ray 01/16/18 10:29 IMPRESSION: Small left pleural effusion. Abdomen/Pelvis CT 01/18/18 17:50 IMPRESSION: Transverse, splenic flexure, and descending colon colitis with wall thickening, luminal narrowing and mild surrounding pericolic inflammatory change. Differential is inflammatory bowel disease versus infectious or ischemic colitis. Post cholecystectomy, hysterectomy and appendectomy Assessment & Plan - Diagnosis (1) Diabetes mellitus type 2 with ketoacidosis, uncontrolled Is this a current diagnosis for this admission?: Yes (2) Diabetes mellitus type 2 in obese Is this a current diagnosis for this admission?: Yes (3) Diarrhea Qualifiers: Diarrhea type: unspecified type Qualified Code(s): R19.7 - Diarrhea, unspecified Is this a current diagnosis for this admission?: Yes (4) Hypotension Qualifiers: Hypotension type: unspecified hypotension type Qualified Code(s): I95.9 - Hypotension, unspecified Is this a current diagnosis for this admission?: Yes (5) Lactic acidosis Is this a current diagnosis for this admission?: Yes (6) HTN (hypertension) Qualifiers: Hypertension type: essential hypertension Qualified Code(s): I10 - Essential (primary) hypertension Is this a current diagnosis for this admission?: Yes (7) HLD (hyperlipidemia) Qualifiers: Hyperlipidemia type: unspecified Qualified Code(s): E78.5 - Hyperlipidemia , unspecified Is this a current diagnosis for this admission?: Yes (8) GERD (gastroesophageal reflux disease) Qualifiers: Esophagitis presence: without esophagitis Qualified Code(s): K21.9 - Gastro -esophageal reflux disease without esophagitis Is this a current diagnosis for this admission?: Yes (9) Bipolar disorder with depression Is this a current diagnosis for this admission?: Yes (10) Anxiety Is this a current diagnosis for this admission?: Yes (11) Migraine headache Qualifiers: Migraine type: unspecified Intractability: not intractable Is this a current diagnosis for this admission?: Yes (12) Diverticulitis of sigmoid colon Is this a current diagnosis for this admission?: Yes - Time Time Spent with patient: 25-34 minutes Medications reviewed and adjusted accordingly: Yes Anticipated discharge: Home with Homehealth Within: Other - Inpatient Certification Based on my medical assessment, after consideration of the patient's comorbidities, presenting symptoms, or acuity I expect that the services needed warrant INPATIENT care.: Yes I certify that my determination is in accordance with my understanding of Medicare's requirements for reasonable and necessary INPATIENT services [42 CFR 412.3e].: Yes Medical Necessity: Need Close Monitoring Due to Risk of Patient Decompensation, Need For Continuous Telemetry Monitoring, Risk of Complication if Not Cared For in Hospital Post Hospital Care: D/C [employer] Documentation - Plan Summary Plan Summary: Increase Lantus Insulin to 50 units q12 hours. I had extensive discussion with patient regarding dietary compliance. She has been able and agreed to self insulin administration upon discharge.
[2018-01-24] MEDS: INSULIN GLARGINE,HUM.REC.ANLOG 300 UNIT/3 ML INSULN.PEN SUBCUT SCH ×2 (10:14→21:36)
[2018-01-24] MEDS: LISINOPRIL 10 MG TABLET PO SCH ×2 (10:15→17:13)
[2018-01-24] MEDS: QUETIAPINE FUMARATE 100 MG TABLET PO SCH (21:37)
[2018-01-24] MEDS: ATORVASTATIN CALCIUM 40 MG TABLET PO SCH (21:37)
[2018-01-25] MEDS: LANSOPRAZOLE 30 MG TAB.RAP.DR PO SCH (05:10)
[2018-01-25] MEDS: TRIMETHOBENZAMIDE HCL 300 MG CAPSULE PO SCH ×3 (05:10→21:26)
[2018-01-25] MEDS: INSULIN LISPRO 100 UNIT/ML 3 ML VIAL SUBCUT PRN ×3 (07:54→21:24)
[2018-01-25] MEDS: LISINOPRIL 10 MG TABLET PO SCH ×2 (09:14→17:01)
[2018-01-25] MEDS: INSULIN GLARGINE,HUM.REC.ANLOG 300 UNIT/3 ML INSULN.PEN SUBCUT SCH ×2 (09:15→21:25)
[2018-01-25] MEDS: NORMAL SALINE 1000 ML 1,000 ML IV PRN (11:50)
[2018-01-25] MEDS ORDERED: INSULIN LISPRO 100 UNIT/ML 3 ML VIAL SUBCUT ONE (12:00)
--- NOTE | 2018-01-25 17:12 | PDOC PROGRESS REPORT ---
Subjective Progress Note for:: 01/25/18 Subjective:: Patient continue to exhibit severe hyperglycemia. She claimed dietary restriction compliance. No chest pain or difficulty with breathing. No fever or chills. No nausea, vomiting, or abdominal pain. Reason For Visit: DKA Physical Exam Vital Signs: Temp Pulse Resp BP Pulse Ox 99.0 F 90 18 151/88 H 97 01/25/18 15:13 01/25/18 15:13 01/25/18 15:13 01/25/18 15:13 01/25/18 15:13 Intake & Output 01/24/18 01/25/18 01/26/18 06:59 06:59 06:59 Intake Total 2452 474 1050 Output Total 5900 1100 700 Balance -5168 -626 350 Weight 74.2 kg 72.5 kg Physical Exam: General appearance: PRESENT: no acute distress, obese Head exam: PRESENT: atraumatic, normocephalic Eye exam: PRESENT: conjunctiva pink, EOMI, PERRLA. ABSENT: scleral icterus Ear exam: PRESENT: normal external ear exam Mouth exam: PRESENT: moist Teeth exam: PRESENT: poor dentition Respiratory exam: PRESENT: clear to auscultation bhavin Cardiovascular exam: PRESENT: RRR. ABSENT: diastolic murmur, rubs, systolic murmur Vascular exam: ABSENT: pallor GI/Abdominal exam: PRESENT: normal bowel sounds, soft, tenderness - lower quadrants. ABSENT: rebound, guarding, organomegaly Extremities exam: PRESENT: pedal edema Musculoskeletal exam: PRESENT: deformity - related to arthritis Neurological exam: PRESENT: alert, awake, oriented to person, oriented to place , oriented to time, oriented to situation, CN II-XII grossly intact. ABSENT: motor sensory deficit Psychiatric exam: PRESENT: appropriate affect, normal mood. ABSENT: homicidal ideation, suicidal ideation Skin exam: PRESENT: dry, intact, warm. ABSENT: cyanosis, rash Results Laboratory Results: 01/21/18 04:12 01/22/18 05:00 01/16/18 01/16/18 22:56 22:56 Creatine Kinase 28 L CK-MB (CK-2) 0.57 Troponin I 0.029 Impressions: Chest X-Ray 01/16/18 10:29 IMPRESSION: Small left pleural effusion. Abdomen/Pelvis CT 01/18/18 17:50 IMPRESSION: Transverse, splenic flexure, and descending colon colitis with wall thickening, luminal narrowing and mild surrounding pericolic inflammatory change. Differential is inflammatory bowel disease versus infectious or ischemic colitis. Post cholecystectomy, hysterectomy and appendectomy Assessment & Plan - Diagnosis (1) Diabetes mellitus type 2 with ketoacidosis, uncontrolled Is this a current diagnosis for this admission?: Yes (2) Diabetes mellitus type 2 in obese Is this a current diagnosis for this admission?: Yes (3) Diarrhea Qualifiers: Diarrhea type: unspecified type Qualified Code(s): R19.7 - Diarrhea, unspecified Is this a current diagnosis for this admission?: Yes (4) Hypotension Qualifiers: Hypotension type: unspecified hypotension type Qualified Code(s): I95.9 - Hypotension, unspecified Is this a current diagnosis for this admission?: Yes (5) Lactic acidosis Is this a current diagnosis for this admission?: Yes (6) HTN (hypertension) Qualifiers: Hypertension type: essential hypertension Qualified Code(s): I10 - Essential (primary) hypertension Is this a current diagnosis for this admission?: Yes (7) HLD (hyperlipidemia) Qualifiers: Hyperlipidemia type: unspecified Qualified Code(s): E78.5 - Hyperlipidemia , unspecified Is this a current diagnosis for this admission?: Yes (8) GERD (gastroesophageal reflux disease) Qualifiers: Esophagitis presence: without esophagitis Qualified Code(s): K21.9 - Gastro -esophageal reflux disease without esophagitis Is this a current diagnosis for this admission?: Yes (9) Bipolar disorder with depression Is this a current diagnosis for this admission?: Yes (10) Anxiety Is this a current diagnosis for this admission?: Yes (11) Migraine headache Qualifiers: Migraine type: unspecified Intractability: not intractable Is this a current diagnosis for this admission?: Yes (12) Diverticulitis of sigmoid colon Is this a current diagnosis for this admission?: Yes - Time Time Spent with patient: 25-34 minutes Medications reviewed and adjusted accordingly: Yes Anticipated discharge: Home with Homehealth Within: Other - Inpatient Certification Based on my medical assessment, after consideration of the patient's comorbidities, presenting symptoms, or acuity I expect that the services needed warrant INPATIENT care.: Yes I certify that my determination is in accordance with my understanding of Medicare's requirements for reasonable and necessary INPATIENT services [42 CFR 412.3e].: Yes Medical Necessity: Need Close Monitoring Due to Risk of Patient Decompensation, Need For IV Fluids, Need For Continuous Telemetry Monitoring, Risk of Complication if Not Cared For in Hospital Post Hospital Care: D/C [employer] Documentation - Plan Summary Plan Summary: See attending physician orders.
[2018-01-25] MEDS: SITAGLIPTIN PHOSPHATE 50 MG TABLET PO SCH (17:23)
[2018-01-25] MEDS: QUETIAPINE FUMARATE 100 MG TABLET PO SCH (21:25)
[2018-01-25] MEDS: ATORVASTATIN CALCIUM 40 MG TABLET PO SCH (21:26)
[2018-01-26] MEDS: NORMAL SALINE 1000 ML 1,000 ML IV PRN (03:15)
[2018-01-26] MEDS: LANSOPRAZOLE 30 MG TAB.RAP.DR PO SCH (05:29)
[2018-01-26] MEDS: TRIMETHOBENZAMIDE HCL 300 MG CAPSULE PO SCH ×3 (05:29→22:10)
[2018-01-26] MEDS: INSULIN LISPRO 100 UNIT/ML 3 ML VIAL SUBCUT PRN ×4 (07:53→21:29)
[2018-01-26] MEDS: INSULIN GLARGINE,HUM.REC.ANLOG 300 UNIT/3 ML INSULN.PEN SUBCUT SCH ×2 (09:32→22:10)
[2018-01-26] MEDS: LISINOPRIL 10 MG TABLET PO SCH ×2 (09:32→17:26)
[2018-01-26] MEDS: SITAGLIPTIN PHOSPHATE 50 MG TABLET PO SCH (09:32)
[2018-01-26] MEDS: ONDANSETRON HCL INJ/PF 4 MG/2 ML SDV IV PRN (15:58)
--- NOTE | 2018-01-26 17:17 | PDOC PROGRESS REPORT ---
Subjective Progress Note for:: 01/26/18 Subjective:: Patient was admitted for DKA, still requiring treatment Reason For Visit: DKA Physical Exam Vital Signs: Temp Pulse Resp BP Pulse Ox 98.4 F 94 16 133/88 H 96 01/26/18 15:05 01/26/18 15:05 01/26/18 15:05 01/26/18 15:05 01/26/18 15:05 Intake & Output 01/25/18 01/26/18 01/27/18 06:59 06:59 06:59 Intake Total 474 2923 1237 Output Total 1100 1980 200 Balance -412 108 2730 Weight 72.5 kg 73.5 kg General appearance: PRESENT: no acute distress Eye exam: PRESENT: PERRLA Respiratory exam: PRESENT: clear to auscultation bhavin Cardiovascular exam: PRESENT: +S1, +S2 GI/Abdominal exam: PRESENT: soft Neurological exam: PRESENT: alert Results Laboratory Results: 01/21/18 04:12 01/22/18 05:00 01/16/18 01/16/18 22:56 22:56 Creatine Kinase 28 L CK-MB (CK-2) 0.57 Troponin I 0.029 Impressions: Chest X-Ray 01/16/18 10:29 IMPRESSION: Small left pleural effusion. Abdomen/Pelvis CT 01/18/18 17:50 IMPRESSION: Transverse, splenic flexure, and descending colon colitis with wall thickening, luminal narrowing and mild surrounding pericolic inflammatory change. Differential is inflammatory bowel disease versus infectious or ischemic colitis. Post cholecystectomy, hysterectomy and appendectomy Assessment & Plan - Diagnosis (1) Diabetes with ketoacidosis Qualifiers: Diabetes mellitus type: type 2 Diabetes mellitus intermediate teacher insulin use: without prison use Diabetes mellitus complication detail: without coma Qualified Code(s): E11.10 - Type 2 diabetes mellitus with ketoacidosis without coma Is this a current diagnosis for this admission?: Yes Plan: continue treatment
[2018-01-26] MEDS: ATORVASTATIN CALCIUM 40 MG TABLET PO SCH (22:10)
[2018-01-26] MEDS: QUETIAPINE FUMARATE 100 MG TABLET PO SCH (22:10)
[2018-01-27] MEDS: ONDANSETRON HCL INJ/PF 4 MG/2 ML SDV IV PRN ×2 (02:42→10:09)
[2018-01-27] MEDS: LANSOPRAZOLE 30 MG TAB.RAP.DR PO SCH (05:05)
[2018-01-27] MEDS: TRIMETHOBENZAMIDE HCL 300 MG CAPSULE PO SCH ×3 (05:05→21:19)
[2018-01-27] MEDS: INSULIN LISPRO 100 UNIT/ML 3 ML VIAL SUBCUT PRN ×4 (07:58→21:20)
[2018-01-27] MEDS: SITAGLIPTIN PHOSPHATE 50 MG TABLET PO SCH (09:12)
[2018-01-27] MEDS: LISINOPRIL 10 MG TABLET PO SCH ×2 (09:12→17:04)
[2018-01-27] MEDS: INSULIN GLARGINE,HUM.REC.ANLOG 300 UNIT/3 ML INSULN.PEN SUBCUT SCH ×2 (10:07→21:20)
--- NOTE | 2018-01-27 15:31 | PDOC PROGRESS REPORT ---
Subjective Progress Note for:: 01/27/18 Subjective:: She wants to go home, the blood sugar still elevated , admitted for DKA Reason For Visit: DKA Physical Exam Vital Signs: Temp Pulse Resp BP Pulse Ox 98.5 F 92 14 96/48 L 96 01/27/18 11:25 01/27/18 14:00 01/27/18 11:25 01/27/18 11:25 01/27/18 11:25 Intake & Output 01/26/18 01/27/18 01/28/18 06:59 06:59 06:59 Intake Total 2923 1711 237 Output Total 1980 2250 Balance 943 -539 237 Weight 73.5 kg 74 kg General appearance: PRESENT: no acute distress Eye exam: PRESENT: PERRLA Respiratory exam: PRESENT: clear to auscultation bhavin Cardiovascular exam: PRESENT: +S1, +S2 Neurological exam: PRESENT: alert, CN II-XII grossly intact Results Laboratory Results: 01/21/18 04:12 01/22/18 05:00 01/16/18 01/16/18 22:56 22:56 Creatine Kinase 28 L CK-MB (CK-2) 0.57 Troponin I 0.029 Impressions: Chest X-Ray 01/16/18 10:29 IMPRESSION: Small left pleural effusion. Abdomen/Pelvis CT 01/18/18 17:50 IMPRESSION: Transverse, splenic flexure, and descending colon colitis with wall thickening, luminal narrowing and mild surrounding pericolic inflammatory change. Differential is inflammatory bowel disease versus infectious or ischemic colitis. Post cholecystectomy, hysterectomy and appendectomy Assessment & Plan - Diagnosis (1) Diabetes with ketoacidosis Qualifiers: Diabetes mellitus type: type 2 Diabetes mellitus residential insulin use: without [employer] foreman use Diabetes mellitus complication detail: without coma Qualified Code(s): E11.10 - Type 2 diabetes mellitus with ketoacidosis without coma Is this a current diagnosis for this admission?: Yes Plan: continue treatment
[2018-01-27] MEDS: QUETIAPINE FUMARATE 100 MG TABLET PO SCH (21:19)
[2018-01-27] MEDS: ATORVASTATIN CALCIUM 40 MG TABLET PO SCH (21:19)
[2018-01-28] MEDS: TRIMETHOBENZAMIDE HCL 300 MG CAPSULE PO SCH ×3 (05:20→21:17)
[2018-01-28] MEDS: LANSOPRAZOLE 30 MG TAB.RAP.DR PO SCH (05:20)
[2018-01-28] MEDS: LISINOPRIL 10 MG TABLET PO SCH ×2 (08:59→21:12)
[2018-01-28] MEDS: INSULIN LISPRO 100 UNIT/ML 3 ML VIAL SUBCUT PRN ×4 (09:05→22:32)
[2018-01-28] MEDS: SITAGLIPTIN PHOSPHATE 50 MG TABLET PO SCH (09:05)
[2018-01-28] MEDS: INSULIN GLARGINE,HUM.REC.ANLOG 300 UNIT/3 ML INSULN.PEN SUBCUT SCH ×2 (09:05→22:33)
[2018-01-28] MEDS: ONDANSETRON HCL INJ/PF 4 MG/2 ML SDV IV PRN ×2 (11:17→15:31)
--- NOTE | 2018-01-28 18:19 | PDOC PROGRESS REPORT ---
Subjective Progress Note for:: 01/28/18 Subjective:: Patient denied any chest pain, palpitation, or difficulty with breathing. No fever or chills. Accuchek remain elevated but comparatively improving. She claimed compliance with her dietary restriction. Reason For Visit: DKA Physical Exam Vital Signs: Temp Pulse Resp BP Pulse Ox 97.5 F 96 18 127/70 H 97 01/28/18 15:41 01/28/18 15:41 01/28/18 15:41 01/28/18 15:41 01/28/18 15:41 Intake & Output 01/27/18 01/28/18 01/29/18 06:59 06:59 06:59 Intake Total 1711 1065 237 Output Total 2250 2350 100 Balance -539 -1285 137 Weight 74 kg 73.8 kg Physical Exam: General appearance: PRESENT: no acute distress, obese Head exam: PRESENT: atraumatic, normocephalic Eye exam: PRESENT: conjunctiva pink, EOMI, PERRLA. ABSENT: scleral icterus Ear exam: PRESENT: normal external ear exam Mouth exam: PRESENT: moist Teeth exam: PRESENT: poor dentition Respiratory exam: PRESENT: clear to auscultation bhavin Cardiovascular exam: PRESENT: RRR. ABSENT: diastolic murmur, rubs, systolic murmur Vascular exam: ABSENT: pallor GI/Abdominal exam: PRESENT: normal bowel sounds, soft, tenderness - lower quadrants. ABSENT: rebound, guarding, organomegaly Extremities exam: PRESENT: pedal edema Musculoskeletal exam: PRESENT: deformity - related to arthritis Neurological exam: PRESENT: alert, awake, oriented to person, oriented to place , oriented to time, oriented to situation, CN II-XII grossly intact. ABSENT: motor sensory deficit Psychiatric exam: PRESENT: appropriate affect, normal mood. ABSENT: homicidal ideation, suicidal ideation Skin exam: PRESENT: dry, intact, warm. ABSENT: cyanosis, rash Results Laboratory Results: 01/21/18 04:12 01/22/18 05:00 01/16/18 01/16/18 22:56 22:56 Creatine Kinase 28 L CK-MB (CK-2) 0.57 Troponin I 0.029 Impressions: Chest X-Ray 01/16/18 10:29 IMPRESSION: Small left pleural effusion. Abdomen/Pelvis CT 01/18/18 17:50 IMPRESSION: Transverse, splenic flexure, and descending colon colitis with wall thickening, luminal narrowing and mild surrounding pericolic inflammatory change. Differential is inflammatory bowel disease versus infectious or ischemic colitis. Post cholecystectomy, hysterectomy and appendectomy Assessment & Plan - Diagnosis (1) Diabetes mellitus type 2 with ketoacidosis, uncontrolled Is this a current diagnosis for this admission?: Yes (2) Diabetes mellitus type 2 in obese Is this a current diagnosis for this admission?: Yes (3) Diarrhea Qualifiers: Diarrhea type: unspecified type Qualified Code(s): R19.7 - Diarrhea, unspecified Is this a current diagnosis for this admission?: Yes (4) Hypotension Qualifiers: Hypotension type: unspecified hypotension type Qualified Code(s): I95.9 - Hypotension, unspecified Is this a current diagnosis for this admission?: Yes (5) Lactic acidosis Is this a current diagnosis for this admission?: Yes (6) HTN (hypertension) Qualifiers: Hypertension type: essential hypertension Qualified Code(s): I10 - Essential (primary) hypertension Is this a current diagnosis for this admission?: Yes (7) HLD (hyperlipidemia) Qualifiers: Hyperlipidemia type: unspecified Qualified Code(s): E78.5 - Hyperlipidemia , unspecified Is this a current diagnosis for this admission?: Yes (8) GERD (gastroesophageal reflux disease) Qualifiers: Esophagitis presence: without esophagitis Qualified Code(s): K21.9 - Gastro -esophageal reflux disease without esophagitis Is this a current diagnosis for this admission?: Yes (9) Bipolar disorder with depression Is this a current diagnosis for this admission?: Yes (10) Anxiety Is this a current diagnosis for this admission?: Yes (11) Migraine headache Qualifiers: Migraine type: unspecified Intractability: not intractable Is this a current diagnosis for this admission?: Yes (12) Diverticulitis of sigmoid colon Is this a current diagnosis for this admission?: Yes - Time Time Spent with patient: 25-34 minutes Medications reviewed and adjusted accordingly: Yes Anticipated discharge: Home with Homehealth Within: Other - Inpatient Certification Based on my medical assessment, after consideration of the patient's comorbidities, presenting symptoms, or acuity I expect that the services needed warrant INPATIENT care.: Yes I certify that my determination is in accordance with my understanding of Medicare's requirements for reasonable and necessary INPATIENT services [42 CFR 412.3e].: Yes Medical Necessity: Need Close Monitoring Due to Risk of Patient Decompensation, Need For Continuous Telemetry Monitoring, Risk of Complication if Not Cared For in Hospital Post Hospital Care: D/C Logging Supervisor Documentation - Plan Summary Plan Summary: Increase Januvia to 100 mg p.o daily. Maintain on all other current medication management.
[2018-01-28] MEDS ORDERED: SITAGLIPTIN PHOSPHATE 50 MG TABLET PO ONE (19:00)
[2018-01-28] MEDS: ATORVASTATIN CALCIUM 40 MG TABLET PO SCH (21:12)
[2018-01-28] MEDS: QUETIAPINE FUMARATE 100 MG TABLET PO SCH (21:12)
[2018-01-29 05:04] LABS: ABSOLUTE BASOPHILS # (AUTO) 0.1 10^3/uL (0.0-0.2); ABSOLUTE EOSINOPHILS # (AUTO) 0.2 10^3/uL (0.0-0.6); ABSOLUTE LYMPHOCYTES (AUTO) 2.1 10^3/uL (0.5-4.7); ABSOLUTE MONOCYTES (AUTO) 0.8 10^3/uL (0.1-1.4); ABSOLUTE NEUT (AUTO) 8.2 10^3/uL (1.7-8.2); BASOPHILS % (AUTO) 0.5 % (0-2); EOSINOPHILS % (AUTO) 1.4 % (0-6); HEMATOCRIT 35.2 % (36.0-47.0); HEMOGLOBIN 11.5 g/dL (12.0-15.5); LYMPHOCYTES % (AUTO) 18.6 % (13-45); MEAN CORPUSCULAR HEMOGLOBIN 27.5 pg (27.0-33.4); MEAN CORPUSCULAR HGB CONC 32.5 g/dL (32.0-36.0); MEAN CORPUSCULAR VOLUME 85 fl (80-97); MONOCYTES % (AUTO) 6.9 % (3-13); PLATELET COUNT 309 10^3/uL (150-450); RED BLOOD COUNT 4.17 10^6/uL (3.72-5.28); RED CELL DISTRIBUTION WIDTH 14.7 % (11.5-14.0); SEGMENTED NEUTROPHILS % (AUTO) 72.6 % (42-78); TOTAL CELLS COUNTED % (AUTO) 100 %; WHITE BLOOD COUNT 11.3 10^3/uL (4.0-10.5)
[2018-01-29] MEDS: LANSOPRAZOLE 30 MG TAB.RAP.DR PO SCH (05:07)
[2018-01-29] MEDS: TRIMETHOBENZAMIDE HCL 300 MG CAPSULE PO SCH ×3 (05:07→22:19)
[2018-01-29 05:28] LABS: ANION GAP 12 (5-19); BLOOD UREA NITROGEN 37 mg/dL (7-20); CALCIUM 9.6 mg/dL (8.4-10.2); CARBON DIOXIDE 26 mmol/L (22-30); CHLORIDE 102 mmol/L (98-107); GLUCOSE 287 mg/dL (75-110); POTASSIUM 4.6 mmol/L (3.6-5.0); SODIUM 139.9 mmol/L (137-145)
[2018-01-29] MEDS: INSULIN LISPRO 100 UNIT/ML 3 ML VIAL SUBCUT PRN ×4 (08:24→22:25)
--- NOTE | 2018-01-29 08:33 | PDOC PROGRESS REPORT ---
Subjective Progress Note for:: 01/29/18 Subjective:: Patient continue to have hyperglycemia. She was served more than ordered carbohydrate ion her breakfast tray that I saw this morning. Patient was re instructed on dietary restrictions and compliance. No nausea, vomiting, or abdominal pain. No chest pain or difficulty with breathing. No fever of chills. She reported some degree of dysuria. Reason For Visit: DKA Physical Exam Vital Signs: Temp Pulse Resp BP Pulse Ox 98.4 F 94 18 93/57 L 96 01/29/18 07:10 01/29/18 07:10 01/29/18 07:10 01/29/18 07:10 01/29/18 07:10 Intake & Output 01/28/18 01/29/18 01/30/18 06:59 06:59 06:59 Intake Total 1065 474 Output Total 2350 1455 Balance -1285 -981 Weight 73.8 kg 72.8 kg Physical Exam: General appearance: PRESENT: no acute distress, obese Head exam: PRESENT: atraumatic, normocephalic Eye exam: PRESENT: conjunctiva pink, EOMI, PERRLA. ABSENT: scleral icterus Ear exam: PRESENT: normal external ear exam Mouth exam: PRESENT: moist Teeth exam: PRESENT: poor dentition Respiratory exam: PRESENT: clear to auscultation bhavin Cardiovascular exam: PRESENT: RRR. ABSENT: diastolic murmur, rubs, systolic murmur Vascular exam: ABSENT: pallor GI/Abdominal exam: PRESENT: normal bowel sounds, soft, tenderness - lower quadrants. ABSENT: rebound, guarding, organomegaly Extremities exam: PRESENT: pedal edema Musculoskeletal exam: PRESENT: deformity - related to arthritis Neurological exam: PRESENT: alert, awake, oriented to person, oriented to place , oriented to time, oriented to situation, CN II-XII grossly intact. ABSENT: motor sensory deficit Psychiatric exam: PRESENT: appropriate affect, normal mood. ABSENT: homicidal ideation, suicidal ideation Skin exam: PRESENT: dry, intact, warm. ABSENT: cyanosis, rash Results Laboratory Results: 01/29/18 04:53 01/29/18 04:53 01/29/18 01/29/18 04:53 04:53 WBC 11.3 H RBC 4.17 Hgb 11.5 L Hct 35.2 L MCV 85 MCH 27.5 MCHC 32.5 RDW 14.7 H Plt Count 309 Seg Neutrophils % 72.6 Lymphocytes % 18.6 Monocytes % 6.9 Eosinophils % 1.4 Basophils % 0.5 Absolute Neutrophils 8.2 Absolute Lymphocytes 2.1 Absolute Monocytes 0.8 Absolute Eosinophils 0.2 Absolute Basophils 0.1 Sodium 139.9 Potassium 4.6 Chloride 102 Carbon Dioxide 26 Anion Gap 12 BUN 37 H Creatinine 0.85 Est GFR ( Amer) > 60 Est GFR (Non-Af Amer) > 60 Glucose 287 H Calcium 9.6 01/16/18 01/16/18 22:56 22:56 Creatine Kinase 28 L CK-MB (CK-2) 0.57 Troponin I 0.029 Impressions: Chest X-Ray 01/16/18 10:29 IMPRESSION: Small left pleural effusion. Abdomen/Pelvis CT 01/18/18 17:50 IMPRESSION: Transverse, splenic flexure, and descending colon colitis with wall thickening, luminal narrowing and mild surrounding pericolic inflammatory change. Differential is inflammatory bowel disease versus infectious or ischemic colitis. Post cholecystectomy, hysterectomy and appendectomy Assessment & Plan - Diagnosis (1) Diabetes mellitus type 2 with ketoacidosis, uncontrolled Is this a current diagnosis for this admission?: Yes (2) Diabetes mellitus type 2 in obese Is this a current diagnosis for this admission?: Yes (3) Diarrhea Qualifiers: Diarrhea type: unspecified type Qualified Code(s): R19.7 - Diarrhea, unspecified Is this a current diagnosis for this admission?: Yes (4) Hypotension Qualifiers: Hypotension type: unspecified hypotension type Qualified Code(s): I95.9 - Hypotension, unspecified Is this a current diagnosis for this admission?: Yes (5) Lactic acidosis Is this a current diagnosis for this admission?: Yes (6) HTN (hypertension) Qualifiers: Hypertension type: essential hypertension Qualified Code(s): I10 - Essential (primary) hypertension Is this a current diagnosis for this admission?: Yes (7) HLD (hyperlipidemia) Qualifiers: Hyperlipidemia type: unspecified Qualified Code(s): E78.5 - Hyperlipidemia , unspecified Is this a current diagnosis for this admission?: Yes (8) GERD (gastroesophageal reflux disease) Qualifiers: Esophagitis presence: without esophagitis Qualified Code(s): K21.9 - Gastro -esophageal reflux disease without esophagitis Is this a current diagnosis for this admission?: Yes (9) Bipolar disorder with depression Is this a current diagnosis for this admission?: Yes (10) Anxiety Is this a current diagnosis for this admission?: Yes (11) Migraine headache Qualifiers: Migraine type: unspecified Intractability: not intractable Is this a current diagnosis for this admission?: Yes (12) Diverticulitis of sigmoid colon Is this a current diagnosis for this admission?: Yes - Time Time Spent with patient: 25-34 minutes Medications reviewed and adjusted accordingly: Yes Anticipated discharge: Home with Homehealth Within: Other - Inpatient Certification Based on my medical assessment, after consideration of the patient's comorbidities, presenting symptoms, or acuity I expect that the services needed warrant INPATIENT care.: Yes I certify that my determination is in accordance with my understanding of Medicare's requirements for reasonable and necessary INPATIENT services [42 CFR 412.3e].: Yes Medical Necessity: Need Close Monitoring Due to Risk of Patient Decompensation, Need For IV Fluids, Need For Continuous Telemetry Monitoring, Risk of Complication if Not Cared For in Hospital Post Hospital Care: D/C Clinical Psychologist Documentation - Plan Summary Plan Summary: Continue current medication management. obtain U/A with microscopy.
[2018-01-29] MEDS: LISINOPRIL 10 MG TABLET PO SCH ×2 (09:31→22:19)
[2018-01-29] MEDS: SITAGLIPTIN PHOSPHATE 50 MG TABLET PO SCH (09:33)
[2018-01-29] MEDS ORDERED: INSULIN GLARGINE,HUM.REC.ANLOG 1,000 UNIT/10 ML UNIT SUBCUT SCH (10:45)
[2018-01-29] MEDS: ONDANSETRON HCL INJ/PF 4 MG/2 ML SDV IV PRN (11:55)
[2018-01-29 12:24] LABS: APPEARANCE,URINE CLEAR; BILIRUBIN,URINE NEGATIVE (NEGATIVE); COLOR,URINE YELLOW; GLUCOSE, URINE >=500 mg/dL (NEGATIVE); KETONES,URINE NEGATIVE (NEGATIVE); LEUKOCYTE ESTERASE,URINE NEGATIVE (NEGATIVE); NITRITE,URINE NEGATIVE (NEGATIVE); PROTEIN,URINE NEGATIVE (NEGATIVE); URINE SPECIFIC GRAVITY 1.018; UROBILINOGEN,URINE NEGATIVE mg/dL (<2.0)
[2018-01-29] MEDS: ATORVASTATIN CALCIUM 40 MG TABLET PO SCH (22:19)
[2018-01-29] MEDS: QUETIAPINE FUMARATE 100 MG TABLET PO SCH (22:19)
[2018-01-29] MEDS: INSULIN GLARGINE,HUM.REC.ANLOG 1,000 UNIT/10 ML UNIT SUBCUT SCH (22:20)
[2018-01-30 05:04] LABS: ABSOLUTE EOSINOPHILS # (AUTO) 0.1 10^3/uL (0.0-0.6); ABSOLUTE LYMPHOCYTES (AUTO) 2.2 10^3/uL (0.5-4.7); ABSOLUTE MONOCYTES (AUTO) 0.6 10^3/uL (0.1-1.4); ABSOLUTE NEUT (AUTO) 4.1 10^3/uL (1.7-8.2); BASOPHILS % (AUTO) 0.6 % (0-2); EOSINOPHILS % (AUTO) 1.9 % (0-6); HEMATOCRIT 34.8 % (36.0-47.0); HEMOGLOBIN 11.5 g/dL (12.0-15.5); LYMPHOCYTES % (AUTO) 30.6 % (13-45); MEAN CORPUSCULAR HEMOGLOBIN 28.2 pg (27.0-33.4); MEAN CORPUSCULAR HGB CONC 33.2 g/dL (32.0-36.0); MEAN CORPUSCULAR VOLUME 85 fl (80-97); MONOCYTES % (AUTO) 9.1 % (3-13); PLATELET COUNT 310 10^3/uL (150-450); RED CELL DISTRIBUTION WIDTH 14.4 % (11.5-14.0); SEGMENTED NEUTROPHILS % (AUTO) 57.8 % (42-78); TOTAL CELLS COUNTED % (AUTO) 100 %; WHITE BLOOD COUNT 7.1 10^3/uL (4.0-10.5)
[2018-01-30 05:24] LABS: ANION GAP 9 (5-19); BLOOD UREA NITROGEN 33 mg/dL (7-20); CALCIUM 10.1 mg/dL (8.4-10.2); CARBON DIOXIDE 28 mmol/L (22-30); CHLORIDE 105 mmol/L (98-107); GLUCOSE 240 mg/dL (75-110); POTASSIUM 4.5 mmol/L (3.6-5.0); SODIUM 142.2 mmol/L (137-145)
[2018-01-30] MEDS: TRIMETHOBENZAMIDE HCL 300 MG CAPSULE PO SCH ×2 (06:17→16:24)
[2018-01-30] MEDS: LANSOPRAZOLE 30 MG TAB.RAP.DR PO SCH (06:17)
[2018-01-30] MEDS: INSULIN LISPRO 100 UNIT/ML 3 ML VIAL SUBCUT PRN ×3 (07:56→16:33)
[2018-01-30] MEDS: LISINOPRIL 10 MG TABLET PO SCH (10:32)
[2018-01-30] MEDS: SITAGLIPTIN PHOSPHATE 50 MG TABLET PO SCH (10:32)
[2018-01-30] MEDS: INSULIN GLARGINE,HUM.REC.ANLOG 1,000 UNIT/10 ML UNIT SUBCUT SCH (10:33)
--- NOTE | 2018-01-30 17:41 | PDOC DISCHARGE SUMMARY ---
General - Admit/Disc Date/PCP Admission Date/Primary Care Provider: 01/16/18 12:11 ROSALINO LAWRENCE Discharge Date: 01/30/18 - Discharge Diagnosis (1) Diabetes mellitus type 2 with ketoacidosis, uncontrolled Is this a current diagnosis for this admission?: Yes Summary: Resolved. (2) Diabetes mellitus type 2 in obese Is this a current diagnosis for this admission?: Yes Summary: Maintain on Insulin therapy with Lantus and Humalog sliding scale as well as Januvia. Further adjustment will be done during follow up office visit. (3) Infectious colitis Is this a current diagnosis for this admission?: Yes Summary: Improved with antibiotic therapy. She may need colonoscopy in near future but patient adamantly continue to refuse this recommendation. (4) Diarrhea Is this a current diagnosis for this admission?: Yes Summary: Improved. (5) Hypotension Is this a current diagnosis for this admission?: Yes Summary: Resolved (6) Lactic acidosis Is this a current diagnosis for this admission?: Yes Summary: Resolved. (7) HTN (hypertension) Is this a current diagnosis for this admission?: Yes Summary: Controlled on current medication management. (8) HLD (hyperlipidemia) Is this a current diagnosis for this admission?: Yes Summary: Controlled on current medication management. (9) GERD (gastroesophageal reflux disease) Is this a current diagnosis for this admission?: Yes Summary: Controlled on current medication management. (10) Bipolar disorder with depression Is this a current diagnosis for this admission?: Yes Summary: Controlled on current medication management. (11) Anxiety Is this a current diagnosis for this admission?: Yes Summary: Controlled on current medication management. (12) Migraine headache Is this a current diagnosis for this admission?: Yes Summary: Controlled on current medication management. - Additional Information Resuscitation Status: Full Code Prescriptions: Insulin Glargine,Hum.rec.anlog [Lantus Insulin 100 Unit/1 ml 10 ml] 50 unit SUBCUT Q12 #10 pe Insulin Lispro [Humalog Insulin (Lispro) 100 unit/mL] 0 - 12 unit SUBCUT ACHSP PRN #5 pe PRN Reason: Lisinopril [Prinivil] 20 mg PO DAILY #30 tablet Pen Needle, Diabetic [Pen Needle] 1 each ACHS #200 dis.needle Sitagliptin Phosphate [Januvia 50 mg Tablet] 100 mg PO DAILY 30 Days #60 tablet Home Medications: Gabapentin [Neurontin 400 mg Capsule] 400 mg PO Q4 01/16/18 Hydrocodone/Acetaminophen [Hydrocodone-Acetamin 5-325 mg] 1 tab PO Q12HP PRN Lorazepam [Ativan 1 mg Tablet] 1 mg PO Q8HP PRN 01/16/18 Quetiapine Fumarate [Seroquel] 500 mg PO QHS 01/16/18 Rizatriptan Benzoate [Maxalt] 10 mg PO DAILYP PRN 01/16/18 Rosuvastatin Calcium [Crestor 20 mg Tablet] 20 mg PO DAILY 01/16/18 Tizanidine HCl [Zanaflex 4 mg Tablet] 4 mg PO Q12HP PRN 01/16/18 Tramadol HCl [Ultram 50 mg Tablet] 50 mg PO Q12HP PRN 01/16/18 Insulin Glargine,Hum.rec.anlog [Lantus Insulin 100 Unit/1 ml 10 ml] 50 unit SUBCUT Q12 #10 pe 01/30/18 Insulin Lispro [Humalog Insulin (Lispro) 100 unit/mL] 0 - 12 unit SUBCUT ACHSP PRN #5 pe 01/30/18 Lisinopril [Prinivil] 20 mg PO DAILY #30 tablet 01/30/18 Pen Needle, Diabetic [Pen Needle] 1 each ACHS #200 dis.needle 01/30/18 Sitagliptin Phosphate [Januvia 50 mg Tablet] 100 mg PO DAILY 30 Days #60 tablet 01/30/18 History of Present Illness Patient complains of: Abdominal pain, diarrhea and difficulty with breathing History of Present Illness: LETTY GOSS is a 67 year old female known to my practice but noncompliant with follow up schedule management presented to the ED today via EMS service with complaint of abdominal pain, diarrhea and difficulty with breathing over last couple of days. Due to worsening symptoms she activated the EMS and she was brought to the ED. EMS personnel reported significantly elevated blood glucose level in the field. Patient has history of diabetes mellitus with questionable compliance with medical management. She denied consumption of any unusual food or drink. She described her abdominal pain a cramps in nature and associated with her bowel movement. Mostly in the lower abdominal region. She denied tarry or blood stool. She reported associated nausea but no vomiting. She denied any chest pain. No fever or chills. No dysuria, flank pain or hematuria. Her initial evaluation in the ED revealed ongoing DKA with low anion gap. Her morbidities include diabetes mellitus, Hypertension, Hyperlipidemia, Migraine headache, Kidney Stones, GERD, and Bipolar Disorder with Depression and Anxiety. Hospital Course Hospital Course: Patient was admitted to ICU due to her need for insulin infusion and hemodynamic instability. She responded to regular insulin infusion therapy, IV fluid hydration, and electrolyte correction. Due to her persistent lower abdominal pain there was concern for possible Diverticulitis. She was treated with IV antibiotics including Zosyn and Flagyl. Her abdominal CT scan eventually suggested possible infectious colitis. She was seen by surgicalist team with recommendation to continue medical management. Her associated leukocytosis did resolved with improvement in her hemodynamic parameters. she was eventually transferred to [facility]. Her hospital stay remain complicated with significant hyperglycemia with need for insulin therapy adjustment. In view of her presentation with DKA with Lactic acidosis her Metformin was not restarted. She was started on Januvia with increase dose to 100 mg at time of discharge. She is currently on Lantus Insulin 50 units SC bid. She will be discharged home with home health agency service including visiting nurse to continue diabetic self management teaching. She will follow up with me in the office as instructed upon discharge. Physical Exam Vital Signs: Temp Pulse Resp BP Pulse Ox 97.9 F 93 16 119/67 97 01/30/18 15:04 01/30/18 15:04 01/30/18 15:04 01/30/18 15:04 01/30/18 15:04 Intake & Output 01/29/18 01/30/18 01/31/18 06:59 06:59 06:59 Intake Total 474 1110 523 Output Total 1455 1200 Balance -981 -90 523 Weight 72.8 kg 72 kg Physical Exam: General appearance: PRESENT: no acute distress, obese Head exam: PRESENT: atraumatic, normocephalic Eye exam: PRESENT: conjunctiva pink, EOMI, PERRLA. ABSENT: scleral icterus Ear exam: PRESENT: normal external ear exam Mouth exam: PRESENT: moist Teeth exam: PRESENT: poor dentition Respiratory exam: PRESENT: clear to auscultation bhavin Cardiovascular exam: PRESENT: RRR. ABSENT: diastolic murmur, rubs, systolic murmur GI/Abdominal exam: PRESENT: normal bowel sounds, soft, tenderness - lower quadrants. ABSENT: rebound, guarding, organomegaly Extremities exam: PRESENT: pedal edema Musculoskeletal exam: PRESENT: deformity - related to arthritis Neurological exam: PRESENT: alert, awake, oriented to person, oriented to place , oriented to time, oriented to situation, CN II-XII grossly intact. ABSENT: motor sensory deficit Psychiatric exam: PRESENT: appropriate affect, normal mood. ABSENT: homicidal ideation, suicidal ideation Skin exam: PRESENT: dry, intact, warm. ABSENT: cyanosis, rash Results Laboratory Results: 01/30/18 04:32 01/30/18 04:32 01/30/18 01/30/18 04:32 04:32 WBC 7.1 RBC 4.10 Hgb 11.5 L Hct 34.8 L MCV 85 MCH 28.2 MCHC 33.2 RDW 14.4 H Plt Count 310 Seg Neutrophils % 57.8 Lymphocytes % 30.6 Monocytes % 9.1 Eosinophils % 1.9 Basophils % 0.6 Absolute Neutrophils 4.1 Absolute Lymphocytes 2.2 Absolute Monocytes 0.6 Absolute Eosinophils 0.1 Absolute Basophils 0.0 Sodium 142.2 Potassium 4.5 Chloride 105 Carbon Dioxide 28 Anion Gap 9 BUN 33 H Creatinine 0.85 Est GFR ( Amer) > 60 Est GFR (Non-Af Amer) > 60 Glucose 240 H Calcium 10.1 01/16/18 01/16/18 22:56 22:56 Creatine Kinase 28 L CK-MB (CK-2) 0.57 Troponin I 0.029 Impressions: Chest X-Ray 01/16/18 10:29 IMPRESSION: Small left pleural effusion. Abdomen/Pelvis CT 01/18/18 17:50 IMPRESSION: Transverse, splenic flexure, and descending colon colitis with wall thickening, luminal narrowing and mild surrounding pericolic inflammatory change. Differential is inflammatory bowel disease versus infectious or ischemic colitis. Post cholecystectomy, hysterectomy and appendectomy Qualifiers - * PATIENT BEING DISCHARGED WITH ANY OF THE FOLLOWING DIAGNOSIS: No Plan Discharge Plan: Discharge home today with follow up appointment as instructed upon discharge. She will be referred to [facility] with formerly [facility] diabetes mellitus teaching and monitoring program.
[2018-01-30 17:44] VITALS: BP 160/84
== END 2018-01-30 19:00 | disposition home health service (06) | DRG 638 ==
LOC: ER 09:57 → EH 12:11 → ICU 17:58 → 3W 01-19 10:07
PROVIDERS: ADMIT Internal Medicine Geriatric Medicine; ATTEND Internal Medicine Geriatric Medicine
DX: E11.10 Type 2 diabetes mellitus with ketoacidosis without coma (principal); A09 Infectious gastroenteritis and colitis, unspecified; K57.32 Diverticulitis of large intestine without perforation or abscess without bleeding; E66.9 Obesity, unspecified; I95.9 Hypotension, unspecified; I10 Essential (primary) hypertension; E78.00 Pure hypercholesterolemia, unspecified; K21.9 Gastro-esophageal reflux disease without esophagitis; F31.9 Bipolar disorder, unspecified; F41.9 Anxiety disorder, unspecified; G43.909 Migraine, unspecified, not intractable, without status migrainosus; F17.210 Nicotine dependence, cigarettes, uncomplicated; Z88.6 Allergy status to analgesic agent; Z88.8 Allergy status to other drugs, medicaments and biological substances; Z79.899 Other long term (current) drug therapy; Z91.19 Patient's noncompliance with other medical treatment and regimen; Z90.49 Acquired absence of other specified parts of digestive tract; Z90.710 Acquired absence of both cervix and uterus; Z82.61 Family history of arthritis; Z83.3 Family history of diabetes mellitus; Z80.9 Family history of malignant neoplasm, unspecified; Z82.49 Family history of ischemic heart disease and other diseases of the circulatory system
CPT/HCPCS: 36415; 71045; 74177; 80048; 80053; 80061; 80076; 81001; 82010; 82272; 82550; 82553; 82803; 82962; 83036; 83605; 83735; 83880; 84484; 85025; 85610; 87040; 87045; 87086; 87205; 87493; 89055; 93005; 93010; 96360; 99291; 99292; J1815; J2405; J2543; J3490; J7030; J7120; S0164

== ENCOUNTER 2018-04-14 07:08 | Emergency (ER) | payer MEDICARE, MEDICAID ==
[2018-04-14 07:16] VITALS: BP 148/80
--- NOTE | 2018-04-14 08:00 | ER Document Report ---
ED General - General Chief Complaint: Tremor Stated Complaint: STOMACH PAIN, SHAKEY Time Seen by Provider: 04/14/18 07:40 TRAVEL OUTSIDE OF THE [place] IN LAST 30 DAYS: No - HPI Patient complains to provider of: Tremors upset stomach Notes: Patient coming in for evaluation of tremors and upset stomach/nausea. Patient states upset stomach and tremors have been ongoing for approximate 26 years. Patient states that she is seen multiple neurologist and her primary care physician states neurologist she has been seen for 13 years states they have yet to figure out why the patient has the symptoms. Patient states that she has been given Valium and Neurontin in the past with no relief of her upset stomach and/or tremors. Patient upon my evaluation bed is resting very comfortably. Patient continues stating that she has been tremoring with her legs and then demonstrates the tremors with her legs shaking and [id number] also states that she has been really back and forth in the bed at night which is making it difficult for her to sleep and then also demonstrates this tremor by really [id number] in the stretcher. Patient otherwise looks to be in no obvious distress denies fevers chills nausea vomiting diarrhea. Patient states her blood sugar this morning was 127. Patient states compliance with her medications at home. Denies any recent travel or trauma. During HPI process patient is seen to have intermittent tremors of her extremities upper and lower however each time patient does have a tremor upon discussing this with the patient we are able to stop it voluntarily. - Related Data Allergies/Adverse Reactions: codeine [Codeine] Allergy (Severe, Verified 04/14/18 07:10) Anaphylaxis dihydroergotamine mesylate [From Dhe] Allergy (Severe, Verified 04/14/18 07:10) Loss of balance/severe dizziness escitalopram oxalate [From Lexapro] Adverse Reaction (Severe, Verified 04/14/18 07:10) Suicidal Past Medical History - Social History Smoking Status: Current Every Day Smoker Family History: Reviewed & Not Pertinent, Arthritis, CAD, DM, Hyperlipidemia, Hypertension, Malignancy - Past Medical History Cardiac Medical History: Reports: Hx Hypercholesterolemia, Hx Hypertension Denies: Hx Coronary Artery Disease, Hx Heart Attack Pulmonary Medical History: Denies: Hx Asthma, Hx Bronchitis, Hx COPD, Hx Pneumonia Neurological Medical History: Reports: Hx Migraine. Denies: Hx Cerebrovascular Accident. Comment Only: Hx Seizures - ? Unsure, going to sleep study after preop appt Endocrine Medical History: Reports: Hx Diabetes Mellitus Type 2 Renal/ Medical History: Reports: Hx Kidney Stones. Denies: Hx Peritoneal Dialysis GI Medical History: Reports: Hx Gastroesophageal Reflux Disease, Hx Colonoscopy, Hx Endoscopy Musculoskeletal Medical History: Denies Hx Arthritis, Reports Hx Musculoskeletal Deformity Psychiatric Medical History: Reports: Hx Bipolar Disorder, Hx Depression Infectious Medical History: Past Surgical History: Reports: Hx Abdominal Surgery - lLiposuction, Hx Breast Surgery, Hx Cholecystectomy, Hx Hysterectomy, Hx Neurologic Surgery - Vagus nerve stimulator placed, Hx Nose Surgery, Hx Tonsillectomy - Immunizations Immunizations up to date: No Hx Diphtheria, Pertussis, Tetanus Vaccination: No Review of Systems - Review of Systems Constitutional: No symptoms reported EENT: No symptoms reported Cardiovascular: No symptoms reported Respiratory: No symptoms reported Gastrointestinal: Other - Upset stomach Genitourinary: No symptoms reported Female Genitourinary: No symptoms reported Musculoskeletal: Other - Tremors Skin: No symptoms reported Hematologic/Lymphatic: No symptoms reported Neurological/Psychological: No symptoms reported -: Yes All other systems reviewed and negative Physical Exam - Vital signs Vitals: Temp Pulse Resp BP Pulse Ox 98.1 F 119 H 16 148/80 H 99 04/14/18 07:15 04/14/18 07:15 04/14/18 07:15 04/14/18 07:15 04/14/18 07:15 Interpretation: Normal - General General appearance: Appears well, Alert - HEENT Head: Normocephalic, Atraumatic Eyes: Normal Pupils: PERRL - Respiratory Respiratory status: No respiratory distress Chest status: Nontender Breath sounds: Normal Chest palpation: Normal - Cardiovascular Rhythm: Regular Heart sounds: Normal auscultation Murmur: No - Abdominal Inspection: Normal Distension: No distension Bowel sounds: Normal Tenderness: Nontender Organomegaly: No organomegaly - Back Back: Normal, Nontender - Extremities General upper extremity: Normal inspection, Nontender, Normal color, Normal ROM, Normal temperature General lower extremity: Normal inspection, Nontender, Normal color, Normal ROM, Normal temperature, Normal weight bearing. No: Carlos's sign - Neurological Neuro grossly intact: Yes Cognition: Normal Orientation: AAOx4 [place] Coma Scale Eye Opening: Spontaneous [place] Coma Scale Verbal: Oriented [place] Coma Scale Motor: Obeys Commands [place] Coma Scale Total: 15 Speech: Normal Motor strength normal: LUE, RUE, LLE, RLE Sensory: Normal - Psychological Associated symptoms: Normal affect, Normal mood - Skin Skin Temperature: Warm Skin Moisture: Dry Skin Color: Normal Course - Re-evaluation Re-evalutation: 04/14/18 14:27 Explained to the patient that upon my evaluation looks like her tremors are voluntary that she is able to move and stop them as she pleases. Patient states that this is not the case and is requesting Xanax for her tremors. Explained to the patient that I would not give her Xanax as of yet however I did offer the patient to perform laboratory studies and an x-ray of her abdomen to further evaluate possible underlying causes of her tremors and all of her upset stomach. Patient again asked for Xanax for her underlying tremors I again explained to the patient that she can refuse further lab work and/or treatment however I would not give her Xanax at this time. I left the patient's room giving her the option for further treatment here in the ER or to let the nurse know if she would like to be discharged as of the patient is refusing all medical care and also explained to the patient that at this time I do not see any signs of a emergent medical condition medical screening exam was otherwise negative. Patient stated that she would like to leave I was preparing the patient's discharge papers when I was notified by the staff that the patient was able to ambulate from room 16 out of the front of the emergency room with a normal gait - Vital Signs Vital signs: Temp Pulse Resp BP Pulse Ox 98.1 F 119 H 16 148/80 H 99 04/14/18 07:15 04/14/18 07:15 04/14/18 07:15 04/14/18 07:15 04/14/18 07:15 Discharge - Discharge Clinical Impression: Tremor, Nausea Condition: Good Disposition: HOME, SELF-CARE Instructions: Nausea or Vomiting, Nonspecific ([facility]) Additional Instructions: Please follow-up with your primary care physician for further evaluation of your underlying tremors. Please make sure that you take your medications as previous to prescribed by your physician at home. I would recommend using the Zofran as prescribed for any nausea that she may have. He had declined blood work and further evaluation today I recommend following up with your primary care physician in the next 24-48 hours. Your physical examination does not reveal any critical pathology. Referrals: ROSALINO LAWRENCE MD [Primary Care Provider] - Follow up as needed
== END 2018-04-14 08:00 | disposition home or self-care (01) ==
LOC: ER 07:08
DX: R25.1 Tremor, unspecified (principal); R11.0 Nausea; F17.200 Nicotine dependence, unspecified, uncomplicated; I10 Essential (primary) hypertension; E11.9 Type 2 diabetes mellitus without complications; Z88.8 Allergy status to other drugs, medicaments and biological substances; Z87.892 Personal history of anaphylaxis; Z88.5 Allergy status to narcotic agent
CPT/HCPCS: 99282

== ENCOUNTER 2018-04-18 07:54 | Emergency (ER) | payer MEDICARE, MEDICAID ==
[2018-04-18] MEDS ORDERED: DEXTROSE 50%-WATER 25 GM/50 ML DISP.SYRIN IV ONE (08:00)
[2018-04-18] MEDS ORDERED: DEXTROSE 40% GEL 15 GM TUBE ONE (08:18)
[2018-04-18 08:28] LABS: ABSOLUTE BASOPHILS # (AUTO) 0.1 10^3/uL (0.0-0.2); ABSOLUTE LYMPHOCYTES (AUTO) 1.6 10^3/uL (0.5-4.7); ABSOLUTE MONOCYTES (AUTO) 0.5 10^3/uL (0.1-1.4); ABSOLUTE NEUT (AUTO) 7.6 10^3/uL (1.7-8.2); BASOPHILS % (AUTO) 0.5 % (0-2); EOSINOPHILS % (AUTO) 0.3 % (0-6); HEMATOCRIT 36.7 % (36.0-47.0); MEAN CORPUSCULAR HEMOGLOBIN 26.5 pg (27.0-33.4); MEAN CORPUSCULAR HGB CONC 32.7 g/dL (32.0-36.0); MEAN CORPUSCULAR VOLUME 81 fl (80-97); MONOCYTES % (AUTO) 5.2 % (3-13); PLATELET COUNT 320 10^3/uL (150-450); RED BLOOD COUNT 4.53 10^6/uL (3.72-5.28); RED CELL DISTRIBUTION WIDTH 14.4 % (11.5-14.0); TOTAL CELLS COUNTED % (AUTO) 100 %; WHITE BLOOD COUNT 9.8 10^3/uL (4.0-10.5)
[2018-04-18 08:44] LABS: ALANINE AMINOTRANSFERASE 38 U/L (9-52); ALBUMIN 4.2 g/dL (3.5-5.0); ALKALINE PHOSPHATASE 105 U/L (38-126); ANION GAP 7 (5-19); ASPARTATE AMINO TRANSFERASE 24 U/L (14-36); BILIRUBIN,DIRECT 0.1 mg/dL (0.0-0.4); BILIRUBIN,TOTAL 0.9 mg/dL (0.2-1.3); BLOOD UREA NITROGEN 15 mg/dL (7-20); CARBON DIOXIDE 29 mmol/L (22-30); CHLORIDE 107 mmol/L (98-107); CREATINE KINASE 32 U/L (30-135); GLUCOSE 109 mg/dL (75-110); POTASSIUM 4.1 mmol/L (3.6-5.0); SODIUM 143.2 mmol/L (137-145); TOTAL PROTEIN 6.9 g/dL (6.3-8.2)
--- NOTE | 2018-04-18 08:57 | RADIOLOGY REPORT (SQ) ---
EXAM DESCRIPTION: CHEST SINGLE VIEW COMPLETED DATE/TIME: 04/18/2018 8:44 am REASON FOR STUDY: dizziness, hypoglycemia COMPARISON: 01/16/2018. EXAM PARAMETERS: NUMBER OF VIEWS: One view. TECHNIQUE: Single frontal radiographic view of the chest acquired. RADIATION DOSE: NA LIMITATIONS: None. FINDINGS: LUNGS AND PLEURA: No opacities, masses or pneumothorax. No pleural effusion. MEDIASTINUM AND HILAR STRUCTURES: No masses. Contour normal. HEART AND VASCULAR STRUCTURES: Heart normal in size. Normal vasculature. BONES: No acute findings. HARDWARE: Electronic stimulator. OTHER: No other significant finding. IMPRESSION: NO ACUTE RADIOGRAPHIC FINDING IN THE CHEST. TECHNICAL DOCUMENTATION: JOB ID: [id number]- All Rights Reserved Reading location - IP/workstation name: [email or web address]
--- NOTE | 2018-04-18 09:00 | ER Document Report ---
ED General - General Chief Complaint: Low Blood Sugar Stated Complaint: BLOOD SUGAR ISSUE Time Seen by Provider: 04/18/18 07:58 Mode of Arrival: Medic Information source: Patient TRAVEL OUTSIDE OF THE [place] IN LAST 30 DAYS: No - HPI Notes: 67-year-old female with a history of type 2 diabetes who is insulin diet dependent, tremors, COPD presents to the ED via EMS for a blood sugar of 56, was given glucagon in route, blood sugar elevated to 60s, patient is awake and alert, patient states that she is not had an appetite the last couple days because she is felt "nervous" but did take her 10 units of insulin as well as her oral anti-glycemic medications this morning without anything to eat., patient only ate a grapefruit yesterday. Denies any nausea or vomiting. Patient states she cannot find her Accu-Chek at home. Is a patient of Dr. Janina Duarte. Patient does have full function and ambulates well without issues at home. Denies fevers, chills, chest pain,palpitations, shortness of breath, dyspnea, nausea, vomiting, diarrhea, abdominal pain, hematuria,blurred vision, double vision, loss of vision, speech changes, LH, dizziness, syncope, he adaches, wheezing, ST, URI, neck pain, weakness, bowel or bladder dysfunction, saddle anesthesia, numbness or tingling in bilateral upper or lower extremities equally, muscle paralysis, weakness in bilateral upper or lower extremities equally or rash. - Related Data Allergies/Adverse Reactions: codeine [Codeine] Allergy (Severe, Verified 04/14/18 07:10) Anaphylaxis dihydroergotamine mesylate [From Dhe] Allergy (Severe, Verified 04/14/18 07:10) Loss of balance/severe dizziness escitalopram oxalate [From Lexapro] Adverse Reaction (Severe, Verified 04/14/18 07:10) Suicidal Past Medical History - General Information source: Patient - Social History Smoking Status: Unknown if Ever Smoked Family History: Reviewed & Not Pertinent, Arthritis, CAD, DM, Hyperlipidemia, Hypertension, Malignancy - Past Medical History Cardiac Medical History: Reports: Hx Hypercholesterolemia, Hx Hypertension Denies: Hx Coronary Artery Disease, Hx Heart Attack Pulmonary Medical History: Denies: Hx Asthma, Hx Bronchitis, Hx COPD, Hx Pneumonia Neurological Medical History: Reports: Hx Migraine. Denies: Hx Cerebrovascular Accident. Comment Only: Hx Seizures - ? Unsure, going to sleep study after preop appt Endocrine Medical History: Reports: Hx Diabetes Mellitus Type 2 Renal/ Medical History: Reports: Hx Kidney Stones. Denies: Hx Peritoneal Dialysis GI Medical History: Reports: Hx Gastroesophageal Reflux Disease, Hx Colonoscopy, Hx Endoscopy Musculoskeletal Medical History: Denies Hx Arthritis, Reports Hx Musculoskeletal Deformity Psychiatric Medical History: Reports: Hx Bipolar Disorder, Hx Depression Infectious Medical History: Past Surgical History: Reports: Hx Abdominal Surgery - lLiposuction, Hx Breast Surgery, Hx Cholecystectomy, Hx Hysterectomy, Hx Neurologic Surgery - Vagus nerve stimulator placed, Hx Nose Surgery, Hx Tonsillectomy - Immunizations Immunizations up to date: No Hx Diphtheria, Pertussis, Tetanus Vaccination: No Review of Systems - Review of Systems Constitutional: See HPI EENT: No symptoms reported Cardiovascular: No symptoms reported Respiratory: No symptoms reported Gastrointestinal: No symptoms reported Genitourinary: No symptoms reported Female Genitourinary: No symptoms reported Musculoskeletal: No symptoms reported Skin: No symptoms reported Hematologic/Lymphatic: No symptoms reported Neurological/Psychological: No symptoms reported Physical Exam - Vital signs Vitals: Temp Pulse Resp BP 98.6 F 91 16 150/74 H 04/18/18 08:05 04/18/18 08:05 04/18/18 08:05 04/18/18 08:05 - Notes Notes: PHYSICAL EXAMINATION: GENERAL: Chronically ill-appearing, well-nourished and in no acute distress. HEAD: Atraumatic, normocephalic. EYES: Pupils equal round and reactive to light, extraocular movements intact, conjunctiva are normal. ENT: Nares patent, oropharynx clear without exudates. Moist mucous membranes. Poor dentition NECK: Normal range of motion, supple without lymphadenopathy LUNGS: Breath sounds clear to auscultation bilaterally and equal. No wheezes rales or rhonchi. HEART: Regular rate and rhythm without murmurs ABDOMEN: Soft, nontender, nondistended abdomen. No guarding, no rebound. No masses appreciated. No CVA tenderness bilaterally Female : deferred Musculoskeletal: Normal range of motion, no pitting or edema. No cyanosis. NEUROLOGICAL: Cranial nerves grossly intact. Normal speech, normal gait. Normal sensory, motor exams. PSYCH: Normal mood, normal affect. SKIN: Warm, Dry, normal turgor, no rashes or lesions noted. Course - Re-evaluation Re-evalutation: 04/18/18 17:23 67-year-old female with a history of type 2 diabetes presents for hypoglycemia, EMS states her blood glucose was in the mid 50s, patient given glucagon in route, patient given glucagon and came to ED for concerns of hypoglycemia, patient in no acute distress afebrile vitals stable. Patient drinking [place] and eating crackers with peanut butter. CBC negative for anemia or leukocytosis, CMP negative for hepatic or renal dysfunction, no electrolyte disturbances, recheck Accu-Chek 219.EKG negative for any acute findings, no STEMI. 2 sets of troponins negative, patient not complaining of any chest pain. Patient tolerating p.o. liquids. Discussed with patient that her clinical assessment, diagnostic and laboratory findings are all within normal range now that her blood sugar is elevated, advised to not take any insulin, to monitor he r blood sugars at home, see Dr. Janina Duarte tomorrow for possibly decreasing her insulin from 10units to 5 units sliding scale of Lantus. I have reevaluated this patient multiple times and no significant life threatening changes, no signs of toxicity, sepsis or peritonitis are noted. The patient and I have discussed the diagnosis and risks, and we agree with discharging home and close follow-up. We also discussed returning to the Emergency Department immediately if new or worsening symptoms occur with the understanding that symptoms and presentations can change. At this time will discharge with return precautions and follow-up recommendations. Verbal discharge instructions given a the mikaeli de and opportunity for questions given. We have discussed the symptoms which are most concerning (e.g., chest pain, shortness of breath, confusion, weakness, dizziness, fever) that necessitate immediate return. Medication warnings reviewed. All questions and concerns answered by this provider. Patient is in agreement with this plan and has verbalized understanding of return precautions and the need for primary care follow-up in the next 24-72 hours. Patient verbalized understanding of plan of care and agree with plan of care. - Vital Signs Vital signs: Temp Pulse Resp BP Pulse Ox 98.6 F 109 H 19 128/69 H 98 04/18/18 08:05 04/18/18 08:06 04/18/18 12:31 04/18/18 12:31 04/18/18 12:31 - Laboratory Result Diagrams: 04/18/18 08:14 04/18/18 08:14 Laboratory results interpreted by me: 04/18/18 04/18/18 04/18/18 08:14 08:30 08:55 MCH 26.5 L RDW 14.4 H POC Glucose 126 H Urine Protein 30 H Urine Ketones 25 H Ur Leukocyte Esterase TRACE H 04/18/18 11:25 MCH RDW POC Glucose 219 H Urine Protein Urine Ketones Ur Leukocyte Esterase Discharge - Discharge Clinical Impression: Hypoglycemia, Tremor Condition: Stable Disposition: HOME, SELF-CARE Instructions: Hypoglycemia ([facility]) Additional Instructions: Hypoglycemia You have suffered an episode of hypoglycemia (low blood sugar). Typical symptoms of hypoglycemia are shaking, sweating, headache, and confusion. When severe, unconsciousness or seizure may occur. Hypoglycemia occurs when a person taking insulin or diabetes pills has a change in the amount of blood sugar available -- due to exercise, decreased food intake, or alcohol. Should you feel symptoms of hypoglycemia again, immediately take some form of sugar such as sweetened juice. As the reaction subsides, eat a complex carbohydrate such as bread. If possible, check your blood sugar using a chemical strip. Please check your blood sugars regularly If episodes are occurring without obvious explanation, contact your physician for further evaluation. Your blood work, EKG, cardiac enzymes and chest x-ray were all normal. STOP TAKING INSULIN but continue oral anti diabetic medication. If you are not eating, you do not need your insulin. Please check at home blood sugars are re ally. follow-up with your primary care provider tomorrow for insulin management Referrals: ROSALINO LAWRENCE MD [Primary Care Provider] - Follow up tomorrow
[2018-04-18 09:07] LABS: APPEARANCE,URINE CLOUDY; BILIRUBIN,URINE NEGATIVE (NEGATIVE); COLOR,URINE YELLOW; GLUCOSE, URINE NEGATIVE (NEGATIVE)
[2018-04-18 09:08] LABS: KETONES,URINE 25 mg/dL (NEGATIVE); LEUKOCYTE ESTERASE,URINE TRACE (NEGATIVE); NITRITE,URINE NEGATIVE (NEGATIVE); PROTEIN,URINE 30 mg/dL (NEGATIVE); URINE SPECIFIC GRAVITY 1.014; UROBILINOGEN,URINE NEGATIVE mg/dL (<2.0)
[2018-04-18 09:21] LABS: CREATINE KINASE MB 0.31 ng/mL (<4.55)
--- NOTE | 2018-04-18 09:22 | EKG REPORT ---
SEVERITY:- OTHERWISE NORMAL ECG - SINUS TACHYCARDIA : Confirmed by: Raquel Holguin 18-Apr-2018 09:21:27
[2018-04-18 09:23] LABS: TROPONIN I < 0.012 ng/mL
[2018-04-18] MEDS ORDERED: METOCLOPRAMIDE HCL INJ/PF 10 MG/2 ML SDV IV ONE (09:33)
[2018-04-18 12:48] VITALS: BP 128/69
== END 2018-04-18 12:54 | disposition home or self-care (01) ==
LOC: ER 07:54
DX: E11.649 Type 2 diabetes mellitus with hypoglycemia without coma (principal); R25.1 Tremor, unspecified; J44.9 Chronic obstructive pulmonary disease, unspecified; E78.00 Pure hypercholesterolemia, unspecified; I10 Essential (primary) hypertension; Z88.6 Allergy status to analgesic agent; Z79.4 Long term (current) use of insulin; Z87.442 Personal history of urinary calculi; Z90.49 Acquired absence of other specified parts of digestive tract; Z90.710 Acquired absence of both cervix and uterus
CPT/HCPCS: 93005; 99285; 96374; 36415; 87086; 82553; 82962; 82550; 85025; 87088; 80053; 81001; 84484; 87186; 71045; 93010; J2765

== ENCOUNTER 2018-04-18 13:49 | Emergency (ER) | payer MEDICARE, MEDICAID ==
[2018-04-18 14:08] VITALS: BP 154/85
--- NOTE | 2018-04-18 14:52 | ER Document Report ---
ED Medical Screen (RME) - General Chief Complaint: Weakness Stated Complaint: POSSIBLE LOW BLOOD SUGAR Time Seen by Provider: 04/18/18 14:50 Mode of Arrival: Wheelchair Information source: Patient, Relative Notes: This is a 67-year-old female who is brought in to the emergency room by her daughter after the patient had a syncopal episode while in the car. Patient states that she has diabetes and her blood sugar has been "acting up lately". Patient notes decreased p.o. intake, increased weakness and fatigue. Patient was evaluated by the ER today and was discharged after evaluation. Patient's daughter who is in the waiting room reports that she picked the patient up and they were in the car going to the primary care doctor's office (Dr. Janina Duarte) when the patient's daughter reports that the patient fainted. Patient was unresponsive for a few minutes. Patient states she has had generalized weakness and fatigue. Patient is in no wheelchair in the emergency room and feels faint. She denies chest pain. TRAVEL OUTSIDE OF THE [place] IN LAST 30 DAYS: No - Related Data Allergies/Adverse Reactions: codeine [Codeine] Allergy (Severe, Verified 04/14/18 07:10) Anaphylaxis dihydroergotamine mesylate [From Dhe] Allergy (Severe, Verified 04/14/18 07:10) Loss of balance/severe dizziness escitalopram oxalate [From Lexapro] Adverse Reaction (Severe, Verified 04/14/18 07:10) Suicidal Past Medical History - Past Medical History Cardiac Medical History: Reports: Hx Hypercholesterolemia, Hx Hypertension Denies: Hx Coronary Artery Disease, Hx Heart Attack Pulmonary Medical History: Denies: Hx Asthma, Hx Bronchitis, Hx COPD, Hx Pneumonia Neurological Medical History: Reports: Hx Migraine. Denies: Hx Cerebrovascular Accident. Comment Only: Hx Seizures - ? Unsure, going to sleep study after preop appt Endocrine Medical History: Reports: Hx Diabetes Mellitus Type 2 Renal/ Medical History: Reports: Hx Kidney Stones. Denies: Hx Peritoneal Dialysis GI Medical History: Reports: Hx Gastroesophageal Reflux Disease, Hx Colonoscopy, Hx Endoscopy Musculoskeltal Medical History: Denies Hx Arthritis, Reports Hx Musculoskeletal Deformity Psychiatric Medical History: Reports: Hx Bipolar Disorder, Hx Depression Infectious Medical History: Past Surgical History: Reports: Hx Abdominal Surgery - lLiposuction, Hx Breast Surgery, Hx Cholecystectomy, Hx Hysterectomy, Hx Neurologic Surgery - Vagus nerve stimulator placed, Hx Nose Surgery, Hx Tonsillectomy - Immunizations Immunizations up to date: No Hx Diphtheria, Pertussis, Tetanus Vaccination: No Physical Exam - Vital signs Vitals: Temp Pulse Resp BP Pulse Ox 98.6 F 99 17 154/85 H 99 04/18/18 14:04 04/18/18 14:04 04/18/18 14:04 04/18/18 14:04 04/18/18 14:04 Course - Vital Signs Vital signs: Temp Pulse Resp BP Pulse Ox 98.6 F 99 17 154/85 H 99 04/18/18 14:04 04/18/18 14:04 04/18/18 14:04 04/18/18 14:04 04/18/18 14:04 - Laboratory Laboratory results interpreted by me: 04/18/18 14:00 POC Glucose 155 H Doctor's Discharge - Discharge Referrals: ROSALINO LAWRENCE MD [Primary Care Provider] - Follow up as needed
--- NOTE | 2018-04-18 23:06 | EKG REPORT ---
SEVERITY:- OTHERWISE NORMAL ECG - SINUS TACHYCARDIA : Confirmed by: Raquel Holugin 18-Apr-2018 23:04:45
== END 2018-04-18 17:01 | disposition left against medical advice (07) ==
LOC: ER 13:49
DX: R53.1 Weakness (principal); R55 Syncope and collapse; E11.9 Type 2 diabetes mellitus without complications; E78.00 Pure hypercholesterolemia, unspecified; I10 Essential (primary) hypertension; Z88.6 Allergy status to analgesic agent; Z87.442 Personal history of urinary calculi; Z90.49 Acquired absence of other specified parts of digestive tract; Z90.710 Acquired absence of both cervix and uterus
CPT/HCPCS: 36415; 82962; 84484; 93005; 93010; 99281

== ENCOUNTER 2018-04-19 11:22 | Emergency (ER) | payer MEDICARE, MEDICAID ==
--- NOTE | 2018-04-19 11:38 | ER Document Report ---
ED Medical Screen (RME) - General Chief Complaint: Headache Stated Complaint: HEADACHE Time Seen by Provider: 04/19/18 11:37 Mode of Arrival: Medic Information source: Patient Notes: This is a 67-year-old female with a history of migraines, diabetes, hypertension who presents to the emergency room via EMS for her migraine headache, feeling restless, feeling confused. Patient states her symptoms began at 4 in the morning. Patient was in the emergency room yesterday twice because of low blood sugars. She did faint at one point. She does endorse weakness and dizziness. She denies any fever, chills, nausea or vomiting. She does not think she is been taking her medicines correctly. TRAVEL OUTSIDE OF THE [place] IN LAST 30 DAYS: No - Related Data Allergies/Adverse Reactions: codeine [Codeine] Allergy (Severe, Verified 04/19/18 11:23) Anaphylaxis dihydroergotamine mesylate [From Dhe] Allergy (Severe, Verified 04/19/18 11:23) Loss of balance/severe dizziness escitalopram oxalate [From Lexapro] Adverse Reaction (Severe, Verified 04/19/18 11:23) Suicidal Past Medical History - Past Medical History Cardiac Medical History: Reports: Hx Hypercholesterolemia, Hx Hypertension Denies: Hx Coronary Artery Disease, Hx Heart Attack Pulmonary Medical History: Denies: Hx Asthma, Hx Bronchitis, Hx COPD, Hx Pneumonia Neurological Medical History: Reports: Hx Migraine. Denies: Hx Cerebrovascular Accident. Comment Only: Hx Seizures - ? Unsure, going to sleep study after preop appt Endocrine Medical History: Reports: Hx Diabetes Mellitus Type 2 Renal/ Medical History: Reports: Hx Kidney Stones. Denies: Hx Peritoneal Dialysis GI Medical History: Reports: Hx Gastroesophageal Reflux Disease, Hx Colonoscopy, Hx Endoscopy Musculoskeltal Medical History: Denies Hx Arthritis, Reports Hx Musculoskeletal Deformity Psychiatric Medical History: Reports: Hx Bipolar Disorder, Hx Depression Infectious Medical History: Past Surgical History: Reports: Hx Abdominal Surgery - lLiposuction, Hx Breast Surgery, Hx Cholecystectomy, Hx Hysterectomy, Hx Neurologic Surgery - Vagus nerve stimulator placed, Hx Nose Surgery, Hx Tonsillectomy - Immunizations Immunizations up to date: No Hx Diphtheria, Pertussis, Tetanus Vaccination: No Physical Exam - Vital signs Vitals: Temp Pulse Resp BP Pulse Ox 98.7 F 96 16 173/84 H 99 04/19/18 11:26 04/19/18 11:26 04/19/18 11:26 04/19/18 11:04/19/18 11:26 Course - Vital Signs Vital signs: Temp Pulse Resp BP Pulse Ox 98.7 F 96 16 173/84 H 99 04/19/18 11:26 04/19/18 11:26 04/19/18 11:26 04/19/18 11:04/19/18 11:26 Doctor's Discharge - Discharge Referrals: ROSALINO LAWRENCE MD [Primary Care Provider] - Follow up as needed
--- NOTE | 2018-04-19 12:45 | RADIOLOGY REPORT (SQ) ---
EXAM DESCRIPTION: CT HEAD WITHOUT COMPLETED DATE/TIME: 04/19/2018 12:33 pm REASON FOR STUDY: confusion COMPARISON: 09/07/2013 TECHNIQUE: Axial images acquired through the brain without intravenous contrast. Images reviewed wi th bone, brain and subdural windows. Additional sagittal and coronal reconstructions were generated. Images stored on PACS. All CT scanners at this facility use dose modulation, iterative reconstruction, and/or weight based d osing when appropriate to reduce radiation dose to as low as reasonably achievable (ALARA). [facility]: Dose Right [facility]: CareDose [facility]: Dose Right [facility]: Teradose 4D [facility]: [facility] RADIATION DOSE: CT Rad equipment meets quality standard of care and radiation dose reduction techniq ues were employed. CTDIvol: 53.2 mGy. DLP: 964 mGy-cm. mGy. LIMITATIONS: None. FINDINGS: VENTRICLES: Normal size and contour. CEREBRUM: No masses. No hemorrhage. No midline shift. No evidence for acute infarction. Normal gra y/white matter differentiation. No areas of low density in the white matter. CEREBELLUM: No masses. No hemorrhage. No alteration of density. No evidence for acute infarction. EXTRAAXIAL SPACES: No fluid collections. No masses. ORBITS AND GLOBE: No intra- or extraconal masses. Normal contour of globe without masses. CALVARIUM: No fracture. PARANASAL SINUSES: No fluid or mucosal thickening. There is a large defect of the nasal septum. SOFT TISSUES: No mass or hematoma. OTHER: No other significant finding. IMPRESSION: No acute intracranial pathology. EVIDENCE OF ACUTE STROKE: NO. COMMENT: Quality ID # [id number]: Final reports with documentation of one or more dose reduction techniques (e.g., Automated exposure control, adjustment of the mA and/or kV according to patient size, use of iterative reconstruction technique) TECHNICAL DOCUMENTATION: JOB ID: [id number] [employer]- All Rights Reserved Reading location - IP/workstation name: [email or web address]
[2018-04-19 13:12] LABS: ABSOLUTE BASOPHILS # (AUTO) 0.1 10^3/uL (0.0-0.2); ABSOLUTE LYMPHOCYTES (AUTO) 2.4 10^3/uL (0.5-4.7); ABSOLUTE MONOCYTES (AUTO) 0.6 10^3/uL (0.1-1.4); ABSOLUTE NEUT (AUTO) 9.7 10^3/uL (1.7-8.2); BASOPHILS % (AUTO) 0.7 % (0-2); EOSINOPHILS % (AUTO) 0.2 % (0-6); HEMATOCRIT 42.4 % (36.0-47.0); HEMOGLOBIN 13.7 g/dL (12.0-15.5); LYMPHOCYTES % (AUTO) 18.5 % (13-45); MEAN CORPUSCULAR HEMOGLOBIN 26.3 pg (27.0-33.4); MEAN CORPUSCULAR HGB CONC 32.4 g/dL (32.0-36.0); MEAN CORPUSCULAR VOLUME 81 fl (80-97); MONOCYTES % (AUTO) 4.4 % (3-13); PLATELET COUNT 396 10^3/uL (150-450); RED CELL DISTRIBUTION WIDTH 14.7 % (11.5-14.0); SEGMENTED NEUTROPHILS % (AUTO) 76.2 % (42-78); TOTAL CELLS COUNTED % (AUTO) 100 %; WHITE BLOOD COUNT 12.8 10^3/uL (4.0-10.5)
[2018-04-19 13:24] LABS: ALANINE AMINOTRANSFERASE 38 U/L (9-52); ALBUMIN 4.7 g/dL (3.5-5.0); ALKALINE PHOSPHATASE 112 U/L (38-126); ANION GAP 12 (5-19); ASPARTATE AMINO TRANSFERASE 31 U/L (14-36); BILIRUBIN,DIRECT 0.2 mg/dL (0.0-0.4); BLOOD UREA NITROGEN 17 mg/dL (7-20); CALCIUM 10.2 mg/dL (8.4-10.2); CARBON DIOXIDE 25 mmol/L (22-30); CHLORIDE 105 mmol/L (98-107); GLUCOSE 110 mg/dL (75-110); POTASSIUM 4.6 mmol/L (3.6-5.0); SODIUM 141.8 mmol/L (137-145); TOTAL PROTEIN 7.8 g/dL (6.3-8.2)
[2018-04-19 13:43] LABS: APPEARANCE,URINE CLEAR; BILIRUBIN,URINE NEGATIVE (NEGATIVE); COLOR,URINE YELLOW; GLUCOSE, URINE NEGATIVE (NEGATIVE); KETONES,URINE 20 mg/dL (NEGATIVE); LEUKOCYTE ESTERASE,URINE NEGATIVE (NEGATIVE); NITRITE,URINE NEGATIVE (NEGATIVE); PROTEIN,URINE 100 mg/dL (NEGATIVE); URINE SPECIFIC GRAVITY 1.019
[2018-04-19] MEDS ORDERED: LORAZEPAM 1 MG TABLET PO ONE (15:08)
[2018-04-19] MEDS ORDERED: PROCHLORPERAZINE EDISYLATE INJ 10 MG/2 ML VIAL IM ONE (15:10)
[2018-04-19] MEDS ORDERED: KETOROLAC TROMETHAMINE 60 MG/2 ML SDV IM ONE (15:10)
--- NOTE | 2018-04-19 15:57 | ER Document Report ---
ED General - General Chief Complaint: Headache Stated Complaint: HEADACHE Time Seen by Provider: 04/19/18 11:37 Mode of Arrival: Medic Notes: Patient is a 67-year-old female who presents with chief complaint of headache. Patient reports her headache has been ongoing for approximately 2 days. Patient reports history of headaches, states this feels similar. Patient also reports she is having increased anxiety lately. Patient has been seen in our facility multiple times lately. TRAVEL OUTSIDE OF THE [place] IN LAST 30 DAYS: No - Related Data Allergies/Adverse Reactions: codeine [Codeine] Allergy (Severe, Verified 04/20/18 17:01) Anaphylaxis dihydroergotamine mesylate [From Dhe] Allergy (Severe, Verified 04/20/18 17:01) Loss of balance/severe dizziness escitalopram oxalate [From Lexapro] Adverse Reaction (Severe, Verified 04/20/18 17:01) Suicidal Past Medical History - General Information source: Patient - Social History Smoking Status: Never Smoker Frequency of alcohol use: None Drug Abuse: None Family History: Reviewed & Not Pertinent, Arthritis, CAD, DM, Hyperlipidemia, Hypertension, Malignancy Patient has suicidal ideation: No Patient has homicidal ideation: No - Past Medical History Cardiac Medical History: Reports: Hx Hypercholesterolemia, Hx Hypertension Denies: Hx Coronary Artery Disease, Hx Heart Attack Pulmonary Medical History: Denies: Hx Asthma, Hx Bronchitis, Hx COPD, Hx Pneumonia Neurological Medical History: Reports: Hx Migraine. Denies: Hx Cerebrovascular Accident. Comment Only: Hx Seizures - ? Unsure, going to sleep study after preop appt Endocrine Medical History: Reports: Hx Diabetes Mellitus Type 2 Renal/ Medical History: Reports: Hx Kidney Stones. Denies: Hx Peritoneal Dialysis GI Medical History: Reports: Hx Gastroesophageal Reflux Disease, Hx Colonoscopy, Hx Endoscopy Musculoskeletal Medical History: Denies Hx Arthritis, Reports Hx Musculoskeletal Deformity Psychiatric Medical History: Reports: Hx Bipolar Disorder, Hx Depression Infectious Medical History: Past Surgical History: Reports: Hx Abdominal Surgery - lLiposuction, Hx Breast Surgery, Hx Cholecystectomy, Hx Hysterectomy, Hx Neurologic Surgery - Vagus nerve stimulator placed, Hx Nose Surgery, Hx Tonsillectomy - Immunizations Immunizations up to date: No Hx Diphtheria, Pertussis, Tetanus Vaccination: No Review of Systems - Review of Systems Constitutional: No symptoms reported EENT: No symptoms reported Cardiovascular: No symptoms reported Respiratory: No symptoms reported Gastrointestinal: No symptoms reported Genitourinary: No symptoms reported Female Genitourinary: No symptoms reported Musculoskeletal: No symptoms reported Skin: No symptoms reported Hematologic/Lymphatic: No symptoms reported Neurological/Psychological: Anxiety, Headaches Physical Exam - Vital signs Vitals: Temp Pulse Resp BP Pulse Ox 98.7 F 96 16 173/84 H 99 04/19/18 11:26 04/19/18 11:26 04/19/18 11:26 04/19/18 11:26 04/19/18 11:26 - Notes Notes: PHYSICAL EXAMINATION: GENERAL: Well-appearing, well-nourished and in no acute distress. HEAD: Atraumatic, normocephalic. EYES: Pupils equal round and reactive to light, extraocular movements intact, conjunctiva are normal. ENT: Nares patent, oropharynx clear without exudates. Moist mucous membranes. NECK: Normal range of motion, supple without lymphadenopathy LUNGS: Breath sounds clear to auscultation bilaterally and equal. No wheezes rales or rhonchi. HEART: Regular rate and rhythm without murmurs ABDOMEN: Soft, nontender, nondistended abdomen. No guarding, no rebound. No masses appreciated. Female : deferred Musculoskeletal: Normal range of motion, no pitting or edema. No cyanosis. NEUROLOGICAL: Cranial nerves grossly intact. Normal speech, normal gait. Normal sensory, motor exams PSYCH: Anxious. SKIN: Warm, Dry, normal turgor, no rashes or lesions noted. Course - Re-evaluation Re-evalutation: Patient's physical examination is reassuring. Patient's headache resolved after administration of headache medications as well as p.o. Ativan for her anxiety. ED observer gravity prospecting went in to see patient as was requested by nursing staff to evaluate for any needs she may have at home. All lab work that was ordered by provider in triage is unremarkable. Patient is vital signs are stable and patient will be discharged home at this time. - Vital Signs Vital signs: Temp Pulse Resp BP Pulse Ox 98.5 F 101 H 18 158/85 H 100 04/19/18 16:01 04/19/18 16:01 04/19/18 16:01 04/19/18 16:04/19/18 16:01 - Laboratory Result Diagrams: 04/19/18 12:50 04/19/18 12:50 Laboratory results interpreted by me: 04/19/18 04/19/18 04/19/18 12:50 12:50 12:50 WBC 12.8 H MCH 26.3 L RDW 14.7 H Absolute Neutrophils 9.7 H Creatinine 0.50 L Urine Protein 100 H Urine Ketones 20 H Urine Urobilinogen 2.0 H Urine Ascorbic Acid 40 H Discharge - Discharge Clinical Impression: Headache, Anxiety Condition: Stable Disposition: HOME, SELF-CARE Additional Instructions: Your blood work and CT scan today were normal. You were given medications for your headache. We had our social media senior associate come and speak with you regarding any possible needs that you have at the home and we will be having our community paramedics contact to. They may be able to help you with some of your needs. Referrals: ROSALINO LAWRENCE MD [Primary Care Provider] - Follow up as needed
[2018-04-19 16:02] VITALS: BP 158/85
== END 2018-04-19 16:24 | disposition home or self-care (01) ==
LOC: ER 11:22
DX: R51 Headache (principal); F41.9 Anxiety disorder, unspecified; I10 Essential (primary) hypertension; E11.9 Type 2 diabetes mellitus without complications; Z87.892 Personal history of anaphylaxis; Z88.5 Allergy status to narcotic agent; Z88.6 Allergy status to analgesic agent; Z86.69 Personal history of other diseases of the nervous system and sense organs
CPT/HCPCS: 99284; 96372; 51701; 36415; 84443; 85025; 80053; 81001; 70450; J1885; A9270; J0780

== ENCOUNTER 2018-04-20 02:40 | Emergency (ER) | payer MEDICARE, MEDICAID ==
--- NOTE | 2018-04-20 06:11 | ER Document Report ---
ED General - General Chief Complaint: Headache Stated Complaint: HEADACHE/WEAKNESS Time Seen by Provider: 04/20/18 06:04 Mode of Arrival: Ambulatory Information source: Patient Notes: 67-year-old female with a history of migraine headaches presents emergency department with complaints of her typical migraine. Patient was seen in the emergency department yesterday for similar. She had lab work and a head CT done that were within normal limits. Patient was discharged home with relief of the headache. Patient states that the headache began to come back so she came to the emergency department. Patient currently denying headache. Says that it completely resolved and is ready to be discharged home. TRAVEL OUTSIDE OF THE [place] IN LAST 30 DAYS: No - HPI Onset: This morning Onset/Duration: Gradual Quality of pain: No pain Severity: None Pain Level: Denies Associated symptoms: None Exacerbated by: Denies Relieved by: Denies Similar symptoms previously: Yes Recently seen / treated by doctor: Yes - Related Data Allergies/Adverse Reactions: codeine [Codeine] Allergy (Severe, Verified 04/20/18 02:41) Anaphylaxis dihydroergotamine mesylate [From Dhe] Allergy (Severe, Verified 04/20/18 02:41) Loss of balance/severe dizziness escitalopram oxalate [From Lexapro] Adverse Reaction (Severe, Verified 04/20/18 02:41) Suicidal Past Medical History - General Information source: Patient - Social History Smoking Status: Current Every Day Smoker Chew tobacco use (# tins/day): No Family History: Reviewed & Not Pertinent, Arthritis, CAD, DM, Hyperlipidemia, Hypertension, Malignancy Patient has suicidal ideation: No Patient has homicidal ideation: No - Past Medical History Cardiac Medical History: Reports: Hx Hypercholesterolemia, Hx Hypertension Denies: Hx Coronary Artery Disease, Hx Heart Attack Pulmonary Medical History: Denies: Hx Asthma, Hx Bronchitis, Hx COPD, Hx Pneumonia Neurological Medical History: Reports: Hx Migraine. Denies: Hx Cerebrovascular Accident. Comment Only: Hx Seizures - ? Unsure, going to sleep study after preop appt Endocrine Medical History: Reports: Hx Diabetes Mellitus Type 2 Renal/ Medical History: Reports: Hx Kidney Stones. Denies: Hx Peritoneal Dialysis GI Medical History: Reports: Hx Gastroesophageal Reflux Disease, Hx Colonoscopy, Hx Endoscopy Musculoskeletal Medical History: Denies Hx Arthritis, Reports Hx Musculoskeletal Deformity Psychiatric Medical History: Reports: Hx Bipolar Disorder, Hx Depression Infectious Medical History: Past Surgical History: Reports: Hx Abdominal Surgery - lLiposuction, Hx Breast Surgery, Hx Cholecystectomy, Hx Hysterectomy, Hx Neurologic Surgery - Vagus nerve stimulator placed, Hx Nose Surgery, Hx Tonsillectomy - Immunizations Immunizations up to date: No Hx Diphtheria, Pertussis, Tetanus Vaccination: No Review of Systems - Review of Systems Constitutional: No symptoms reported EENT: No symptoms reported Cardiovascular: No symptoms reported Respiratory: No symptoms reported Gastrointestinal: No symptoms reported Genitourinary: No symptoms reported Female Genitourinary: No symptoms reported Musculoskeletal: No symptoms reported Skin: No symptoms reported Hematologic/Lymphatic: No symptoms reported Neurological/Psychological: No symptoms reported -: Yes All other systems reviewed and negative Physical Exam - Vital signs Vitals: Temp Pulse Resp BP Pulse Ox 98.2 F 99 14 92/52 L 97 04/20/18 02:59 04/20/18 02:59 04/20/18 02:59 04/20/18 02:59 04/20/18 02:59 - Notes Notes: PHYSICAL EXAMINATION: GENERAL: Well-appearing, well-nourished and in no acute distress. HEAD: Atraumatic, normocephalic. EYES: Pupils equal round and reactive to light, extraocular movements intact, conjunctiva are normal. ENT: Nares patent, oropharynx clear without exudates. Moist mucous membranes. NECK: Normal range of motion, supple without lymphadenopathy LUNGS: Breath sounds clear to auscultation bilaterally and equal. No wheezes rales or rhonchi. HEART: Regular rate and rhythm without murmurs ABDOMEN: Soft, nontender, nondistended abdomen. No guarding, no rebound. No masses appreciated. Female : deferred Musculoskeletal: Normal range of motion, no pitting or edema. No cyanosis. NEUROLOGICAL: Cranial nerves grossly intact. Normal speech, normal gait. Normal sensory, motor exams PSYCH: Normal mood, normal affect. SKIN: Warm, Dry, normal turgor, no rashes or lesions noted. Course - Re-evaluation Re-evalutation: 04/20/18 06:13 Patient has no complaints in the room. Patient asking to be discharged home. She states that her headache completely resolved. Patient instructed to follow- up with her primary care physician this week, to continue taking her medications as directed, and to return for any worsening symptoms. - Vital Signs Vital signs: Temp Pulse Resp BP Pulse Ox 98.2 F 98 18 108/62 99 04/20/18 02:59 04/20/18 06:25 04/20/18 06:25 04/20/18 06:25 04/20/18 06:25 Discharge - Discharge Clinical Impression: Headache Qualifiers: Headache type: unspecified Headache chronicity pattern: unspecified pattern Intractability: not intractable Qualified Code(s): R51 - Headache Condition: Good Disposition: HOME, SELF-CARE Instructions: Headache ([facility]) Referrals: ROSALINO LAWRENCE MD [Primary Care Provider] - Follow up as needed
[2018-04-20 06:27] VITALS: BP 108/62
== END 2018-04-20 06:27 | disposition home or self-care (01) ==
LOC: ER 02:40
DX: R51 Headache (principal); F17.200 Nicotine dependence, unspecified, uncomplicated; I10 Essential (primary) hypertension; E11.9 Type 2 diabetes mellitus without complications; Z86.69 Personal history of other diseases of the nervous system and sense organs; Z88.6 Allergy status to analgesic agent; Z87.892 Personal history of anaphylaxis; Z88.5 Allergy status to narcotic agent
CPT/HCPCS: 99283

== ENCOUNTER 2018-04-20 17:01 | Emergency (ER) | payer MEDICARE, MEDICAID ==
[2018-04-20 17:10] VITALS: BP 118/56
== END 2018-04-20 17:15 | disposition left against medical advice (07) ==
LOC: ER 17:01
DX: Z53.21 Procedure and treatment not carried out due to patient leaving prior to being seen by health care provider (principal)

== ENCOUNTER 2018-04-24 16:00 | Emergency (ER) | payer MEDICARE, MEDICAID ==
--- NOTE | 2018-04-24 17:24 | ER Document Report ---
ED Medical Screen (RME) - General Chief Complaint: Headache Stated Complaint: HEADACHE Time Seen by Provider: 04/24/18 17:21 Primary Care Provider: ROSALINO LAWRENCE MD [Primary Care Provider] - Follow up as needed Notes: 67-year-old female patient complaining of migraine headache and restless leg syndrome. She states the restless legs is the worst problem. She states that usually requires a shot of Toradol and some Ativan to control her symptoms. TRAVEL OUTSIDE OF THE [place] IN LAST 30 DAYS: No - Related Data Allergies/Adverse Reactions: codeine [Codeine] Allergy (Severe, Verified 04/24/18 16:02) Anaphylaxis dihydroergotamine mesylate [From Dhe] Allergy (Severe, Verified 04/24/18 16:02) Loss of balance/severe dizziness escitalopram oxalate [From Lexapro] Adverse Reaction (Severe, Verified 04/24/18 16:02) Suicidal Past Medical History - Social History Chew tobacco use (# tins/day): No Frequency of alcohol use: None Drug Abuse: None - Past Medical History Cardiac Medical History: Reports: Hx Hypercholesterolemia, Hx Hypertension Denies: Hx Coronary Artery Disease, Hx Heart Attack Pulmonary Medical History: Denies: Hx Asthma, Hx Bronchitis, Hx COPD, Hx Pneumonia Neurological Medical History: Reports: Hx Migraine. Denies: Hx Cerebrovascular Accident. Comment Only: Hx Seizures - ? Unsure, going to sleep study after pr eop appt Endocrine Medical History: Reports: Hx Diabetes Mellitus Type 2 Renal/ Medical History: Reports: Hx Kidney Stones. Denies: Hx Peritoneal D ialysis GI Medical History: Reports: Hx Gastroesophageal Reflux Disease, Hx Colonoscopy, Hx Endoscopy Musculoskeltal Medical History: Denies Hx Arthritis, Reports Hx Musculoskeletal Deformity Psychiatric Medical History: Reports: Hx Bipolar Disorder, Hx Depression Infectious Medical History: Past Surgical History: Reports: Hx Abdominal Surgery - lLiposuction, Hx Breast Surgery, Hx Cholecystectomy, Hx Hysterectomy, Hx Neurologic Surgery - Vagus nerve stimulator placed, Hx Nose Surgery, Hx Tonsillectomy - Immunizations Immunizations up to date: No Hx Diphtheria, Pertussis, Tetanus Vaccination: No Physical Exam - Vital signs Vitals: Temp Pulse Resp BP Pulse Ox 97.9 F 111 H 18 176/70 H 97 04/24/18 16:05 04/24/18 16:05 04/24/18 16:05 04/24/18 16:05 04/24/18 16:05 Course - Vital Signs Vital signs: Temp Pulse Resp BP Pulse Ox 97.9 F 111 H 18 176/70 H 97 04/24/18 16:05 04/24/18 16:05 04/24/18 16:05 04/24/18 16:05 04/24/18 16:05 Doctor's Discharge - Discharge Referrals: ROSALINO LAWRENCE MD [Primary Care Provider] - Follow up as needed
[2018-04-24] MEDS ORDERED: KETOROLAC TROMETHAMINE 60 MG/2 ML SDV IM ONE (17:25)
[2018-04-24] MEDS ORDERED: LORAZEPAM 1 MG TABLET PO ONE (17:26)
--- NOTE | 2018-04-24 17:29 | ER Document Report ---
ED Headache - General Chief Complaint: Headache Stated Complaint: HEADACHE Time Seen by Provider: 04/24/18 17:21 Primary Care Provider: ROSALINO LAWRENCE MD [Primary Care Provider] - Follow up as needed Mode of Arrival: Ambulatory Information source: Patient Notes: 67-year-old female with chronic headaches comes emergency room today complaining of her migraine headache and leg syndrome. She states the restless leg problem is worse than the migraine headache. She generally gets a shot of Toradol and 1 Ativan to help with her migraine headache and restless legs. She is on Ativan regularly at home. She describes the headache as being all over the head but predominately over the top and back parts. Patient was seen here on 04/19/2018 for the same problems, she had a CT scan of the head done at that time. She returned on 04/20/2018, and again on 04/20/2018. TRAVEL OUTSIDE OF THE [place] IN LAST 30 DAYS: No - Related Data Allergies/Adverse Reactions: codeine [Codeine] Allergy (Severe, Verified 04/24/18 16:02) Anaphylaxis dihydroergotamine mesylate [From Dhe] Allergy (Severe, Verified 04/24/18 16:02) Loss of balance/severe dizziness escitalopram oxalate [From Lexapro] Adverse Reaction (Severe, Verified 04/24/18 16:02) Suicidal Past Medical History - Social History Smoking Status: Never Smoker Cigarette use (# per day): No Chew tobacco use (# tins/day): No Smoking Education Provided: No Frequency of alcohol use: None Drug Abuse: None Occupation: Unemployed Family History: Reviewed & Not Pertinent, Arthritis, CAD, DM, Hyperlipidemia, Hypertension, Malignancy Patient has suicidal ideation: No Patient has homicidal ideation: No - Past Medical History Cardiac Medical History: Reports: Hx Hypercholesterolemia, Hx Hypertension Neurological Medical History: Reports: Hx MigraineComment Only: Hx Seizures - ? Unsure, going to sleep study after preop appt Endocrine Medical History: Reports: Hx Diabetes Mellitus Type 2 Renal/ Medical History: Reports: Hx Kidney Stones GI Medical History: Reports: Hx Gastroesophageal Reflux Disease, Hx Colonoscopy, Hx Endoscopy Musculoskeletal Medical History: Reports Hx Musculoskeletal Deformity Psychiatric Medical History: Reports: Hx Bipolar Disorder, Hx Depression Infectious Medical History: Past Surgical History: Reports: Hx Abdominal Surgery - lLiposuction, Hx Breast Surgery, Hx Cholecystectomy, Hx Hysterectomy, Hx Neurologic Surgery - Vagus nerve stimulator placed, Hx Nose Surgery, Hx Tonsillectomy - Immunizations Immunizations up to date: No Hx Diphtheria, Pertussis, Tetanus Vaccination: No Review of Systems - Review of Systems Constitutional: No symptoms reported EENT: No symptoms reported Cardiovascular: No symptoms reported Respiratory: No symptoms reported Gastrointestinal: No symptoms reported Genitourinary: No symptoms reported Female Genitourinary: Post menopausal Musculoskeletal: Other - Restless legs syndrome Skin: No symptoms reported Hematologic/Lymphatic: No symptoms reported Neurological/Psychological: Depression, Headaches Physical Exam - Vital signs Vitals: Temp Pulse Resp BP Pulse Ox 97.9 F 111 H 18 176/70 H 97 04/24/18 16:05 04/24/18 16:05 04/24/18 16:05 04/24/18 16:05 04/24/18 16:05 - Notes Notes: PHYSICAL EXAMINATION: GENERAL: Anxious appearing, frequently moving her legs up and down rapidly. HEAD: Atraumatic, normocephalic. Scalp muscles are little tender to palpate, particularly in the occipital region. EYES: Pupils equal round and reactive to light, extraocular movements intact, sclera anicteric, conjunctiva are normal. ENT: nares patent, oropharynx clear without exudates. Moist mucous membranes. NECK: Normal range of motion, supple without lymphadenopathy LUNGS: Breath sounds clear to auscultation bilaterally and equal. No wheezes rales or rhonchi. HEART: Regular rate and rhythm without murmurs ABDOMEN: Soft, nontender, normoactive bowel sounds. No guarding, no rebound. No masses appreciated. EXTREMITIES: Normal range of motion, no pitting or edema. No cyanosis. NEUROLOGICAL: Cranial nerves grossly intact. Normal speech, normal gait. Elizabeth l sensory, motor, and reflex exams. PSYCH: Normal mood, normal affect. SKIN: Warm, Dry, normal turgor, no rashes or lesions noted. Course - Re-evaluation Re-evalutation: 04/24/18 21:03 Patient was given Toradol 60 mg IM and Ativan 1 mg p.o. and discharged home. She did have a ride to take her home. She was encouraged to follow-up with her primary care provider to discuss her frequently visits to the emergency room for management of a problem that should be handled as an outpatient. - Vital Signs Vital signs: Temp Pulse Resp BP Pulse Ox 97.9 F 115 H 18 166/77 H 96 04/24/18 16:05 04/24/18 17:33 04/24/18 17:33 04/24/18 17:33 04/24/18 17:33 Discharge - Discharge Clinical Impression: Restless leg syndrome Headache Qualifiers: Headache type: unspecified Headache chronicity pattern: chronic headache Intractability: not intractable Qualified Code(s): R51 - Headache Condition: Stable Disposition: HOME, SELF-CARE Additional Instructions: Headache The physician does not feel that the headache you are experiencing has a serious underlying cause. Most headaches are due to emotional stress, with resultant muscle tension (tension headache). Occasionally, headaches are secondary to changes in the blood vessels of the scalp (vascular headache and migraine headache). Sometimes, a headache is the first symptom of another developing illness, such as a viral infection. You have no evidence of stroke, bleeding, meningitis, or other serious cause of your headache. The treatment of headaches varies with the severity and cause of the pain. Not all headaches need pain shots. In fact, there is evidence that using narcotics for headaches may make them worse in the long run. The physician will determine the therapy that's in your best interest. If you develop a fever, if the headache is different from any you've previously experienced, or if the headache progressively worsens, then call your physician at once or go to the emergency room. Continue your regular medications. Follow-up with your primary care provider. Let him know that you are having problems with recurrent headaches and your restless leg syndrome. RETURN TO THE EMERGENCY ROOM IF ANY NEW OR WORSENING SYMPTOMS. Referrals: ROSALINO LAWRENCE MD [Primary Care Provider] - Follow up as needed
[2018-04-24 17:35] VITALS: BP 166/77
== END 2018-04-24 17:39 | disposition home or self-care (01) ==
LOC: ER 16:00
DX: R51 Headache (principal); G25.81 Restless legs syndrome; I10 Essential (primary) hypertension; E11.9 Type 2 diabetes mellitus without complications; F32.9 Major depressive disorder, single episode, unspecified; Z79.899 Other long term (current) drug therapy; Z87.892 Personal history of anaphylaxis; Z88.5 Allergy status to narcotic agent; Z88.6 Allergy status to analgesic agent
CPT/HCPCS: 99283; 96372; J1885; A9270

== ENCOUNTER 2018-05-29 11:43 | Emergency (ER) | payer MEDICARE, MEDICAID ==
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
[2018-05-29 13:46] LABS: ABSOLUTE LYMPHOCYTES (AUTO) 1.5 10^3/uL (0.5-4.7); ABSOLUTE MONOCYTES (AUTO) 0.4 10^3/uL (0.1-1.4); ABSOLUTE NEUT (AUTO) 4.4 10^3/uL (1.7-8.2); BASOPHILS % (AUTO) 0.5 % (0-2); EOSINOPHILS % (AUTO) 0.8 % (0-6); HEMATOCRIT 37.9 % (36.0-47.0); HEMOGLOBIN 12.5 g/dL (12.0-15.5); MEAN CORPUSCULAR HEMOGLOBIN 26.2 pg (27.0-33.4); MEAN CORPUSCULAR VOLUME 79 fl (80-97); MONOCYTES % (AUTO) 5.8 % (3-13); PLATELET COUNT 242 10^3/uL (150-450); RED BLOOD COUNT 4.77 10^6/uL (3.72-5.28); RED CELL DISTRIBUTION WIDTH 15.3 % (11.5-14.0); SEGMENTED NEUTROPHILS % (AUTO) 68.9 % (42-78); TOTAL CELLS COUNTED % (AUTO) 100 %; WHITE BLOOD COUNT 6.4 10^3/uL (4.0-10.5)
[2018-05-29 14:10] LABS: ALANINE AMINOTRANSFERASE 40 U/L (9-52); ALBUMIN 4.4 g/dL (3.5-5.0); ALKALINE PHOSPHATASE 90 U/L (38-126); ANION GAP 10 (5-19); ASPARTATE AMINO TRANSFERASE 31 U/L (14-36); BILIRUBIN,DIRECT 0.3 mg/dL (0.0-0.4); BILIRUBIN,TOTAL 0.6 mg/dL (0.2-1.3); BLOOD UREA NITROGEN 22 mg/dL (7-20); CALCIUM 10.8 mg/dL (8.4-10.2); CARBON DIOXIDE 26 mmol/L (22-30); CHLORIDE 109 mmol/L (98-107); GLUCOSE 186 mg/dL (75-110); POTASSIUM 4.4 mmol/L (3.6-5.0); SODIUM 145.2 mmol/L (137-145)
[2018-05-29 14:11] LABS: ACETAMINOPHEN < 10 ug/mL (10-30); ALCOHOL < 10 mg/dL (NONE DETECTED); SALICYLATE < 1.0 mg/dL (2.0-20.0)
[2018-05-29 14:15] LABS: APPEARANCE,URINE CLOUDY; BILIRUBIN,URINE NEGATIVE (NEGATIVE); COLOR,URINE YELLOW; GLUCOSE, URINE 50 mg/dL (NEGATIVE); KETONES,URINE 20 mg/dL (NEGATIVE); LEUKOCYTE ESTERASE,URINE TRACE (NEGATIVE); NITRITE,URINE NEGATIVE (NEGATIVE); PROTEIN,URINE NEGATIVE (NEGATIVE); URINE SPECIFIC GRAVITY 1.024; UROBILINOGEN,URINE NEGATIVE mg/dL (<2.0)
[2018-05-29 14:24] LABS: URINE AMPHETAMINES SCREEN NEGATIVE; URINE BARBITURATES SCREEN NEGATIVE; URINE BENZODIAZEPINES SCREEN UNCONFIRMED POSITIVE; URINE COCAINE SCREEN NEGATIVE; URINE MARIJUANA (THC) SCREEN NEGATIVE; URINE METHADONE SCREEN NEGATIVE; URINE PHENCYCLIDINE SCREEN NEGATIVE
--- NOTE | 2018-05-29 15:57 | ER Document Report ---
ED General - General Chief Complaint: Anxiety Stated Complaint: PSYCH EVAL Time Seen by Provider: 05/29/18 15:39 Primary Care Provider: ROSALINO LAWRENCE MD [Primary Care Provider] - Follow up as needed TRAVEL OUTSIDE OF THE [place] IN LAST 30 DAYS: No - HPI Notes: Patient is a 67-year-old female that presents to the emergency department for chief complaint of anxiety. Patient has history of anxiety and panic attacks. She states the panic attacks have become more frequent. She has thoughts of dying but denies feeling actively suicidal. She denies any homicidal ideation. She states she has had multiple panic attacks a day and is having a hard time functioning because of her anxiety. She did call mobile crisis today. Patient denies any chest pain, palpitations, nausea, vomiting, fevers and diarrhea. Past Medical History: Anxiety, diabetes Past Surgical History: Reviewed in chart Social History: Reviewed in chart Family History: Reviewed and noncontributory for presenting illness Allergies: Reviewed, see documented allergy list. REVIEW OF SYSTEMS: CONSTITUTIONAL : No fever No chills No diaphoresis No recent illness EENT: No vision changes No congestion No sore throat CARDIOVASCULAR: No chest pain No palpitations RESPIRATORY: No shortness of breath No cough No difficulty breathing GASTROINTESTINAL: No abdominal pain No nausea No vomiting No diarrhea GENITOURINARY: No dysuria No hematuria No difficulty urinating MUSCULOSKELETAL: No back pain No leg pain No arm pain SKIN: No rashes No lesions LYMPHATIC: No swollen, enlarged glands. NEUROLOGICAL: No lightheadedness No headache No weakness No paresthesias PSYCHIATRIC: anxiety No depression PHYSICAL EXAMINATION: Vital signs reviewed, nursing noted reviewed. GENERAL: Well-appearing, well-nourished and in no acute distress. HEAD: Atraumatic, normocephalic. EYES: Eyes appear normal, extraocular movements intact, sclera anicteric, conjunctiva are normal. ENT: nares patent, oropharynx clear without exudates. Moist mucous membranes. NECK: Normal range of motion, supple without lymphadenopathy LUNGS: Breath sounds clear to auscultation bilaterally and equal. No wheezes rales or rhonchi. HEART: Regular rate and rhythm without murmurs ABDOMEN: Soft, nontender, normoactive bowel sounds. No rebound, guarding, or rigidity. No masses appreciated. EXTREMITIES: Nontender, good range of motion, no pitting or edema. NEUROLOGICAL: No focal neurological deficits. Moves all extremities spontaneously Motor and sensory grossly intact on exam. PSYCH: Anxious, rapid pressured speech, poor eye contact, fidgeting SKIN: Warm, Dry, normal turgor, no rashes or lesions noted on exposed skin - Related Data Allergies/Adverse Reactions: codeine [Codeine] Allergy (Severe, Verified 05/29/18 11:45) Anaphylaxis dihydroergotamine mesylate [From Dhe] Allergy (Severe, Verified 05/29/18 11:45) Loss of balance/severe dizziness escitalopram oxalate [From Lexapro] Adverse Reaction (Severe, Verified 05/29/18 11:45) Suicidal Past Medical History - Social History Smoking Status: Unknown if Ever Smoked Family History: Reviewed & Not Pertinent, Arthritis, CAD, DM, Hyperlipidemia, Hypertension, Malignancy - Past Medical History Cardiac Medical History: Reports: Hx Hypercholesterolemia, Hx Hypertension Denies: Hx Coronary Artery Disease, Hx Heart Attack Pulmonary Medical History: Denies: Hx Asthma, Hx Bronchitis, Hx COPD, Hx Pneumonia Neurological Medical History: Reports: Hx Migraine. Denies: Hx Cerebrovascular Accident. Comment Only: Hx Seizures - ? Unsure, going to sleep study after preop appt Endocrine Medical History: Reports: Hx Diabetes Mellitus Type 2 Renal/ Medical History: Reports: Hx Kidney Stones. Denies: Hx Peritoneal Dialysis GI Medical History: Reports: Hx Gastroesophageal Reflux Disease, Hx Colonoscopy, Hx Endoscopy Musculoskeletal Medical History: Denies Hx Arthritis, Reports Hx Musculoskeletal Deformity Psychiatric Medical History: Reports: Hx Bipolar Disorder, Hx Depression Infectious Medical History: Past Surgical History: Reports: Hx Abdominal Surgery - lLiposuction, Hx Breast Surgery, Hx Cholecystectomy, Hx Hysterectomy, Hx Neurologic Surgery - Vagus nerve stimulator placed, Hx Nose Surgery, Hx Tonsillectomy - Immunizations Immunizations up to date: No Hx Diphtheria, Pertussis, Tetanus Vaccination: No Physical Exam - Vital signs Vitals: Temp Pulse Resp BP Pulse Ox 98.1 F 110 H 16 131/70 H 97 05/29/18 12:06 05/29/18 12:06 05/29/18 12:06 05/29/18 12:06 05/29/18 12:06 Course - Re-evaluation Re-evalutation: 05/29/18 15:57 Vitals reviewed. Nursing notes reviewed. Patient is fidgeting hand appears anxious. She was given medications as recommended by psych for her anxiety. Patient wishes to remain in the emergency room since she feels unsafe at home with her morbid thoughts. She is not homicidal or suicidal and is not currently on IVC petition. Patient is voluntarily staying in the ED. Her lab work is unremarkable. She is medically cleared at this point. Laboratory 05/29/18 05/29/18 05/29/18 13:25 13:25 13:50 WBC 6.4 RBC 4.77 Hgb 12.5 Hct 37.9 MCV 79 L MCH 26.2 L MCHC 33.0 RDW 15.3 H Plt Count 242 Seg Neutrophils % 68.9 Lymphocytes % 24.0 Monocytes % 5.8 Eosinophils % 0.8 Basophils % 0.5 Absolute Neutrophils 4.4 Absolute Lymphocytes 1.5 Absolute Monocytes 0.4 Absolute Eosinophils 0.0 Absolute Basophils 0.0 Sodium 145.2 H Potassium 4.4 Chloride 109 H Carbon Dioxide 26 Anion Gap 10 BUN 22 H Creatinine 0.75 Est GFR ( Amer) > 60 Est GFR (Non-Af Amer) > 60 Glucose 186 H Calcium 10.8 H Total Bilirubin 0.6 Direct Bilirubin 0.3 Neonat Total Bilirubin Not Reportable Neonat Direct Bilirubin Not Reportable Neonat Indirect Bili Not Reportable AST 31 ALT 40 Alkaline Phosphatase 90 Total Protein 7.0 Albumin 4.4 Urine Color YELLOW Urine Appearance CLOUDY Urine pH 5.0 Ur Specific [place] 1.024 Urine Protein NEGATIVE Urine Glucose (UA) 50 H Urine Ketones 20 H Urine Blood NEGATIVE Urine Nitrite NEGATIVE Urine Bilirubin NEGATIVE Urine Urobilinogen NEGATIVE Ur Leukocyte Esterase TRACE H Urine WBC (Auto) 5 Urine RBC (Auto) 2 U Hyaline Cast (Auto) 3 Urine Bacteria (Auto) TRACE Squamous Epi Cells Auto 8 Granular Casts (Auto) 1 Urine Mucus (Auto) MANY Urine Ascorbic Acid NEGATIVE Salicylates < 1.0 L Urine Opiates Screen Urine Methadone Screen Acetaminophen < 10 L Ur Barbiturates Screen Ur Phencyclidine Scrn Ur Amphetamines Screen U Benzodiazepines Scrn Urine Cocaine Screen U Marijuana (THC) Screen Serum Alcohol < 10 05/29/18 13:50 WBC RBC Hgb Hct MCV MCH MCHC RDW Plt Count Seg Neutrophils % Lymphocytes % Monocytes % Eosinophils % Basophils % Absolute Neutrophils Absolute Lymphocytes Absolute Monocytes Absolute Eosinophils Absolute Basophils Sodium Potassium Chloride Carbon Dioxide Anion Gap BUN Creatinine Est GFR ( Amer) Est GFR (Non-Af Amer) Glucose Calcium Total Bilirubin Direct Bilirubin Neonat Total Bilirubin Neonat Direct Bilirubin Neonat Indirect Bili AST ALT Alkaline Phosphatase Total Protein Albumin Urine Color Urine Appearance Urine pH Ur Specific [place] Urine Protein Urine Glucose (UA) Urine Ketones Urine Blood Urine Nitrite Urine Bilirubin Urine Urobilinogen Ur Leukocyte Esterase Urine WBC (Auto) Urine RBC (Auto) U Hyaline Cast (Auto) Urine Bacteria (Auto) Squamous Epi Cells Auto Granular Casts (Auto) Urine Mucus (Auto) Urine Ascorbic Acid Salicylates Urine Opiates Screen NEGATIVE Urine Methadone Screen NEGATIVE Acetaminophen Ur Barbiturates Screen NEGATIVE Ur Phencyclidine Scrn NEGATIVE Ur Amphetamines Screen NEGATIVE U Benzodiazepines Scrn UNCONFIRMED POSITIVE Urine Cocaine Screen NEGATIVE U Marijuana (THC) Screen NEGATIVE Serum Alcohol - Vital Signs Vital signs: Temp Pulse Resp BP Pulse Ox 98.1 F 110 H 16 131/70 H 97 05/29/18 12:06 05/29/18 12:06 05/29/18 12:06 05/29/18 12:06 05/29/18 12:06 - Laboratory Result Diagrams: 05/29/18 13:25 05/29/18 13:25 Laboratory results interpreted by me: 05/29/18 05/29/18 05/29/18 13:25 13:25 13:50 MCV 79 L MCH 26.2 L RDW 15.3 H Sodium 145.2 H Chloride 109 H BUN 22 H Glucose 186 H Calcium 10.8 H Urine Glucose (UA) 50 H Urine Ketones 20 H Ur Leukocyte Esterase TRACE H Salicylates < 1.0 L Acetaminophen < 10 L Discharge - Discharge Clinical Impression: Anxiety, Panic attacks Condition: Stable Referrals: ROSALINO LAWRENCE MD [Primary Care Provider] - Follow up as needed
[2018-05-29] MEDS: BENZTROPINE MESYLATE 1 MG TABLET PO SCH (16:50)
[2018-05-29] MEDS: CHLORPROMAZINE HCL 50 MG TABLET PO SCH ×2 (18:48→23:33)
[2018-05-29] MEDS: BUSPIRONE HCL 10 MG TABLET PO SCH (18:48)
[2018-05-30] MEDS ORDERED: MELATONIN 5 MG TABLET PO PRN (03:17)
[2018-05-30] MEDS ORDERED: TRAZODONE HCL 50 MG TABLET PO SCH (04:00)
[2018-05-30] MEDS: CHLORPROMAZINE HCL 50 MG TABLET PO SCH (06:25)
--- NOTE | 2018-05-30 08:53 | PSYCHOLOGICAL NOTE ---
Psych Note - Psych Note Date seen by psych provider: 05/30/18 Time seen by psych provider: 07:30 Psych Note: Reason for Consult: Anxiety, [facility] Isela brought patient to ED Contact Permissions: Has a daughter local and son in [place] Patient is a 67 year old female who presented to the [facility] ED via [facility]. [facility] provided the following collateral information: patient has called crisis 5-6 times this morning, crying saying she can't take this anymore (patient said she has morbid thoughts thinking about dying) and expressing anxiety (patient said she has awful anxiety, panic attacks, back to back). Check in conducted with patient Patient is calm and conducts an organized and linear conversation. She reports she came to [facility] Ed because she was was "nervous and upset about a number of things to all just seem to blow up at once." She states that her "life revolves around her diabetes" and that her diabetes never seems to stabilize. She reports that she has had restless legs for over a week. Clinician discussed what was the tipping point that she felt she needed acute care. She reports that she was "crying and just needed to talk to someone." She reports that "the girl came I did not know" that brought her to [facility] ED. She reports that she tried 2 weeks ago to go to [facility] however she did not have the right insurance. She also discussed wanting to possibly go to [facility] however was told that they would only keep her for a week or so. She disclosed her friend had told her previously that may be she should look into moving into a home. She confirms that community paramedics are actively working with her. Clinician conducted psychoeducation on chronic versus acute care, problem solving, and therapeutic services. Patient reports she would like to contact her outpatient mental health provider to continue care. Diagnosis: 296.80 (F31.9) Unspecified Bipolar and Related Disorder Medication recommendation made by the psychiatric medical provider, Dr. Nereyda MD., includes: Discontinue home medications Add Buspar 10MG twice a day for anxiety/calming effect/depression/sleep Add Thorazine 50MG every 6 hours as needed for agitation/anxiety Add Cogentin 1MG daily to curb tremor side effects often associated with antipsychotic medications Impression/Plan: Patient is cleared from acute psychiatric services. Patient reported coming to [facility] ED because she "was crying and needed to talk to someone." Clinician conducted psychoeducation on chronic versus acute care, problem solving and therapeutic services. Patient reports she would like to contact her outpatient mental provider to continue care. Patient is encouraged to continue working with [facility] for further assistance on ongoing chronic social/medical needs (ie to receive assistance in getting medications, follow appointments, etc.). Patient starts therapy 06/19/18. Dr. Dillon was consulted and the care management this patient; attending physicians in agreement with recommendations and disposition.
[2018-05-30] MEDS ORDERED: ONDANSETRON 4 MG TAB.RAPDIS PO ONE (09:19)
--- NOTE | 2018-05-30 09:23 | ER Document Report ---
Doctor's Note Notes: 05/30/18 09:21 Patient seen and evaluated. She is much calmer than when I saw her yesterday. She is still denying any suicidal or homicidal ideations. She had a conversation with the psych team this morning who agrees she is appropriate for outpatient management. Patient did report feeling nauseated this morning but wa s able to eat her entire breakfast. She was given a dose of Zofran prior to discharge for her nausea. She did not have any vomiting in the emergency room. Patient will follow with [facility]. She will return to the emergency room for new or worsening symptoms.
[2018-05-30] MEDS: BUSPIRONE HCL 10 MG TABLET PO SCH (10:08)
[2018-05-30] MEDS: BENZTROPINE MESYLATE 1 MG TABLET PO SCH (10:08)
[2018-05-30 10:39] VITALS: BP 119/56
--- NOTE | 2018-05-30 22:14 | EKG REPORT ---
SEVERITY:- ABNORMAL ECG - SINUS RHYTHM PROBABLE ANTEROSEPTAL INFARCT, OLD : Confirmed by: Raquel Holguin 30-May-2018 22:13:16
== END 2018-05-30 11:52 | disposition home or self-care (01) ==
LOC: ER 11:43
DX: F41.9 Anxiety disorder, unspecified (principal); F41.0 Panic disorder [episodic paroxysmal anxiety]; Z79.899 Other long term (current) drug therapy; F31.9 Bipolar disorder, unspecified; R11.0 Nausea; I10 Essential (primary) hypertension; E11.9 Type 2 diabetes mellitus without complications; T38.3X6A Underdosing of insulin and oral hypoglycemic [antidiabetic] drugs, initial encounter; Z91.14 Patient's other noncompliance with medication regimen; Z87.892 Personal history of anaphylaxis; Z88.5 Allergy status to narcotic agent; Z88.6 Allergy status to analgesic agent; Z62.810 Personal history of physical and sexual abuse in childhood
CPT/HCPCS: 93005; 99284; 36415; 82962; 80307 ×4; 85025; 80053; 81001; 93010; A9270 ×8; J3490; S0119

== ENCOUNTER 2018-07-03 12:08 | Emergency (ER) | payer MEDICARE, MEDICAID ==
--- NOTE | 2018-07-03 12:26 | ER Document Report ---
ED General - General Chief Complaint: Psych Problem Stated Complaint: PSYCH EVAL Time Seen by Provider: 07/03/18 12:14 Primary Care Provider: ROSALINO LAWRENCE MD [Primary Care Provider] - 07/05/18 TRAVEL OUTSIDE OF THE [place] IN LAST 30 DAYS: No - HPI Notes: Patient is a 68-year-old female with a history of anxiety, bipolar, panic attacks, depression, restless leg syndrome who presents to the emergency department for the same symptoms that she had at the end of May when she was here. Patient states that she does continue to have suicidal ideation without planning. She has no homicidal ideations. She has no visual or auditory hallucinations. Patient states that her RLS has been chronic and the same as it has been. She is under the care for this issue with her family provider. She was evaluated yesterday by Dr. Lawrence's office and was placed on "new medicine" but states that she does not know what it is for "the daytime." She cannot pick it up until 1300 today. She otherwise is still able to eat and drink without difficulty. She is urinating normally and having normal bowel movements. No other concerns or complaints. Patient is requesting evaluation with our psychology team. Patient states that she is voluntarily willing to stay for this evaluation. Denies drug or alcohol abuse. Denies any headache, fever, head injury, neck pain, changes in vision/speech/mentation/hearing, URI, sore throat, chest pain, palpitations, syncope, cough, shortness of breath, wheeze, dyspnea, abdominal pain, nausea/vomiting/diarrhea, urinary retention, dysuria, hematuria, loss of control of bowel or bladder, numbness/tingling, saddle anesthesia, muscle para lysis/weakness, or rash. - Related Data Allergies/Adverse Reactions: codeine [Codeine] Allergy (Severe, Verified 07/03/18 12:08) Anaphylaxis dihydroergotamine mesylate [From Dhe] Allergy (Severe, Verified 07/03/18 12:08) Loss of balance/severe dizziness escitalopram oxalate [From Lexapro] Adverse Reaction (Severe, Verified 07/03/18 12:08) Suicidal Past Medical History - Social History Smoking Status: Unknown if Ever Smoked Family History: Reviewed & Not Pertinent, Arthritis, CAD, DM, Hyperlipidemia, Hypertension, Malignancy - Past Medical History Cardiac Medical History: Reports: Hx Hypercholesterolemia, Hx Hypertension Denies: Hx Coronary Artery Disease, Hx Heart Attack Pulmonary Medical History: Denies: Hx Asthma, Hx Bronchitis, Hx COPD, Hx Pneumonia Neurological Medical History: Reports: Hx Migraine. Denies: Hx Cerebrovascular Accident. Comment Only: Hx Seizures - ? Unsure, going to sleep study after preop appt Endocrine Medical History: Reports: Hx Diabetes Mellitus Type 2 Renal/ Medical History: Reports: Hx Kidney Stones. Denies: Hx Peritoneal Dialysis GI Medical History: Reports: Hx Gastroesophageal Reflux Disease, Hx Colonoscopy, Hx Endoscopy Musculoskeletal Medical History: Denies Hx Arthritis, Reports Hx Musculoskeletal Deformity Psychiatric Medical History: Reports: Hx Bipolar Disorder, Hx Depression Infectious Medical History: Past Surgical History: Reports: Hx Abdominal Surgery - lLiposuction, Hx Breast Surgery, Hx Cholecystectomy, Hx Hysterectomy, Hx Neurologic Surgery - Vagus nerve stimulator placed, Hx Nose Surgery, Hx Tonsillectomy - Immunizations Immunizations up to date: No Hx Diphtheria, Pertussis, Tetanus Vaccination: No Review of Systems - Review of Systems -: Yes All other systems reviewed and negative Physical Exam - Vital signs Vitals: Temp Pulse Resp BP Pulse Ox 98.9 F 134 H 18 139/73 H 97 07/03/18 12:11 07/03/18 12:11 07/03/18 12:11 07/03/18 12:11 07/03/18 12:11 - Notes Notes: PHYSICAL EXAMINATION: GENERAL: Well-appearing, well-nourished and in no acute distress. A&Ox4. Answers questions appropriately. HEAD: Atraumatic, normocephalic. EYES: Pupils equal round and reactive to light, extraocular movements intact, sclera anicteric, conjunctiva are normal. No nystagmus. ENT: Nares patent and without discharge. oropharynx clear without exudates. No tonsilar hypertrophy or erythema. Moist mucous membranes. NECK: Normal range of motion, supple without lymphadenopathy. No rigidity/meningismus. No midline tenderness. LUNGS: Breath sounds clear to auscultation bilaterally and equal. No wheezes rales or rhonchi. HEART: Regular rate and rhythm without murmurs, rubs, gallops. ABDOMEN: Soft, nontender, nondistended abdomen. No guarding, no rebound. Normal bowel sounds present. No CVA tenderness bilaterally. Musculoskeletal: Ext's b/l: FROM to passive/active. Strength 5+/5. No deficits noted. No bony tenderness of extremities. Extremities: No cyanosis, clubbing, or edema b/l. Peripheral pulses 2+. Capillary refill less than 2 seconds. NEUROLOGICAL: Cranial nerves grossly intact. Normal speech, normal gait. Normal sensory, motor exams. Reflexes 2+ b/l. PSYCH: appears somewhat anxious SKIN: Warm, Dry, normal turgor, no rashes or lesions noted. Course - Re-evaluation Re-evalutation: 07/03/18 12:24 Patient exam unremarkable. Vitals are acceptable without significant t achycardia, tachypnea, or hypoxia. She is nontoxic-appearing and is able to tolerate p.o. without difficulty. Patient is voluntarily willing to stay and does not meet IVC criteria at this time. He has suicidal ideation without planning. Labs are pending, patient otherwise cleared for evaluation by our psychology team. Patient has other ongoing chronic issues that are being managed by her family provider. She is supposed to slat pickler her new "daytime" medicine today at 1300, but cannot remember what it is. 07/03/18 14:22 Patient is an afebrile, well-hydrated, 68-year-old female who presents emergency department with suicidal ideation without planning and ongoing restless leg syndrome. Vitals are acceptable without significant tachycardia, tachypnea, or hypoxia. PE is otherwise unremarkable. She is nontoxic-appearing and is tolerating p.o. without difficulty. Patient states that she is feeling much better and would like to go home at this time so she can slat pickler her medicines at the pharmacy. She has been cleared by our psychology team. Lab work unremarkable. Low suspicion for any sepsis, meningitis, acute abdomen, or other systemic emergent condition at this time. Patient to monitor symptoms for any acute changes and seek medical attention if so. Patient to recheck with her PCM in the next 2-3 days. Return to the ED with any other worsening/concerning symptoms. Patient is in agreement. - Vital Signs Vital signs: Temp Pulse Resp BP Pulse Ox 98.9 F 134 H 18 139/73 H 97 07/03/18 12:11 07/03/18 12:11 07/03/18 12:11 07/03/18 12:11 07/03/18 12:11 - Laboratory Result Diagrams: 07/03/18 12:44 07/03/18 12:44 Laboratory results interpreted by me: 07/03/18 07/03/18 12:44 12:44 MCH 26.6 L RDW 15.7 H Glucose 210 H Calcium 10.7 H AST 41 H Salicylates < 1.0 L Acetaminophen < 10 L Discharge - Discharge Clinical Impression: Mental health disorder, Restless leg syndrome Condition: Stable Disposition: HOME, SELF-CARE Additional Instructions: Maintain adequate fluid and food intake Take home medications as directed Healthy diet and exercises Monitor symptoms for any acute changes Recheck with your PCM in 2-3 days Return to the ED with any worsening symptoms and/or development of fever, headache, changes in behavior/mentation/vision/speech, chest pain, palpitations, syncope, shortness of breath, trouble breathing, abdominal pain, n/v/d, blood in stool/urine, loss of control of bowel/bladder, urinary retention, muscle weakness/paralysis, saddle anesthesia, numbness/tingling, suicidal ideation/planning, homicidal ideation/planning, visual/auditory hallucinations, or other worsening symptoms that are concerning to you. Forms: Elevated Blood Pressure Referrals: ROSALINO LAWRENCE MD [Primary Care Provider] - 07/05/18
[2018-07-03 13:02] LABS: ABSOLUTE LYMPHOCYTES (AUTO) 1.2 10^3/uL (0.5-4.7); ABSOLUTE MONOCYTES (AUTO) 0.4 10^3/uL (0.1-1.4); ABSOLUTE NEUT (AUTO) 5.4 10^3/uL (1.7-8.2); BASOPHILS % (AUTO) 0.4 % (0-2); EOSINOPHILS % (AUTO) 0.5 % (0-6); HEMOGLOBIN 12.3 g/dL (12.0-15.5); LYMPHOCYTES % (AUTO) 17.3 % (13-45); MEAN CORPUSCULAR HEMOGLOBIN 26.6 pg (27.0-33.4); MEAN CORPUSCULAR HGB CONC 33.2 g/dL (32.0-36.0); MEAN CORPUSCULAR VOLUME 80 fl (80-97); MONOCYTES % (AUTO) 5.6 % (3-13); PLATELET COUNT 202 10^3/uL (150-450); RED BLOOD COUNT 4.61 10^6/uL (3.72-5.28); RED CELL DISTRIBUTION WIDTH 15.7 % (11.5-14.0); SEGMENTED NEUTROPHILS % (AUTO) 76.2 % (42-78); TOTAL CELLS COUNTED % (AUTO) 100 %; WHITE BLOOD COUNT 7.1 10^3/uL (4.0-10.5)
[2018-07-03 13:31] LABS: ALANINE AMINOTRANSFERASE 47 U/L (9-52); ALBUMIN 4.4 g/dL (3.5-5.0); ALKALINE PHOSPHATASE 76 U/L (38-126); ANION GAP 13 (5-19); ASPARTATE AMINO TRANSFERASE 41 U/L (14-36); BILIRUBIN,DIRECT 0.3 mg/dL (0.0-0.4); BILIRUBIN,TOTAL 1.2 mg/dL (0.2-1.3); BLOOD UREA NITROGEN 17 mg/dL (7-20); CALCIUM 10.7 mg/dL (8.4-10.2); CARBON DIOXIDE 25 mmol/L (22-30); CHLORIDE 104 mmol/L (98-107); GLUCOSE 210 mg/dL (75-110); POTASSIUM 4.6 mmol/L (3.6-5.0); SODIUM 141.5 mmol/L (137-145); TOTAL PROTEIN 7.2 g/dL (6.3-8.2)
--- NOTE | 2018-07-03 13:36 | PSYCHOLOGICAL NOTE ---
Psych Note - Psych Note Date seen by psych provider: 07/03/18 Time seen by psych provider: 13:20 Psych Note: Reason for Consult: Suicidal ideation Patient is a 68-year-old female with a history of anxiety, bipolar, panic attacks, depression, restless leg syndrome who presents to the emergency department for suicidal ideation. Patient reports her daughter drove her to [facility] because of the patient had a feeling of "instability." She continues to report that she would like to go home now. When asked why she wanted to go home now she disclosed that "I was told that they only give gabapentin for restless leg that does not work for me... 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 When asked about previously she confirms she made a suicidal comment stating "I think I might of said that I would kill myself." She denies plans means and intent stating that she was very groggy at the time. When asked what has changed she reports "I am wide awake and clear thinking now."She reports that community paramedics is no longer working with her. She continued to state that she is still thinking about moving into a custodial however her primary care doctor states that he does not feel she needs to move into one; however, "I think I really need to move into one." Patient was alert and oriented to person, place, time and circumstance. Mood was anxious with congruent affect. Patient denies current suicidal homicidal ideation. She confirms made a suicidal comment due to her discomfort of her restless leg denies plans means or intent. Delusions are absent behaviors congruent with an intact reality based presentation i.e. organized and linear thought process. Eye contact was well-maintained. Conversational speech is within normal rate, tone and prosody. Intellectual abilities are estimated to be average. Insight, judgment and impulse control were fair as evidenced by being open and honest about her mental health. No medication recommendations at this time Diagnosis: V62.9 (Z65.9) Unspecified problem related to unspecified psychosocial circumstance 296.80 (F31.9) Unspecified Bipolar and Related Disorder per history provided by patient Impression/Plan: Patient is cleared from acute psychiatric services. Patient reported coming to [facility] because because she felt and stable due to her restless leg. She confirms she made a suicidal comment denies plans means and intent denies current thoughts of wanting to harm herself. Patient reports she would like to discharge to pickling machine operator her new medication at the pharmacy because the medications that the emergency department is offering does not work for her. Clinician notes patient has been seen in the past and there has been some concern of drug-seeking behaviors. Clinician conducted psychoeducation on chronic versus acute care, problem solving and therapeutic services. Dr. Dillon was consulted and the care management this patient; attending physicians in agreement with recommendations and disposition.
[2018-07-03 13:40] LABS: ACETAMINOPHEN < 10 ug/mL (10-30); ALCOHOL < 10 mg/dL (NONE DETECTED); SALICYLATE < 1.0 mg/dL (2.0-20.0)
[2018-07-03 14:38] VITALS: BP 138/78
[2018-07-03 14:39] LABS: APPEARANCE,URINE SLIGHTLY-CLOUDY; BILIRUBIN,URINE NEGATIVE (NEGATIVE); COLOR,URINE YELLOW; GLUCOSE, URINE NEGATIVE (NEGATIVE); KETONES,URINE 20 mg/dL (NEGATIVE); LEUKOCYTE ESTERASE,URINE TRACE (NEGATIVE); NITRITE,URINE NEGATIVE (NEGATIVE); PROTEIN,URINE 100 mg/dL (NEGATIVE); URINE SPECIFIC GRAVITY 1.017; UROBILINOGEN,URINE NEGATIVE mg/dL (<2.0)
[2018-07-03 14:47] LABS: URINE AMPHETAMINES SCREEN NEGATIVE; URINE BARBITURATES SCREEN NEGATIVE; URINE BENZODIAZEPINES SCREEN NEGATIVE; URINE COCAINE SCREEN NEGATIVE; URINE MARIJUANA (THC) SCREEN NEGATIVE; URINE METHADONE SCREEN NEGATIVE; URINE PHENCYCLIDINE SCREEN NEGATIVE
--- NOTE | 2018-07-03 18:46 | EKG REPORT ---
SEVERITY:- BORDERLINE ECG - SINUS TACHYCARDIA PROBABLE LEFT ATRIAL ABNORMALITY CONSIDER ANTERIOR INFARCT : Confirmed by: Cayden Espitia MD 03-Jul-2018 18:45:35
== END 2018-07-03 14:44 | disposition home or self-care (01) ==
LOC: ER 12:08
DX: F31.9 Bipolar disorder, unspecified (principal); G25.81 Restless legs syndrome; R45.851 Suicidal ideations; I10 Essential (primary) hypertension; Z87.892 Personal history of anaphylaxis; Z88.5 Allergy status to narcotic agent; Z88.6 Allergy status to analgesic agent
CPT/HCPCS: 36415; 80053; 80307; 81001; 85025; 93005; 93010; 99285

== ENCOUNTER 2018-07-04 15:41 | Emergency (ER) | payer MEDICARE, MEDICAID ==
[2018-07-04 15:57] VITALS: BP 122/71
--- NOTE | 2018-07-04 16:29 | PSYCHOLOGICAL NOTE ---
Psych Note - Psych Note Date seen by psych provider: 07/04/18 Time seen by psych provider: 16:05 Psych Note: Reason for Consult: Suicidal ideation Patient is a 68-year-old female with a history of anxiety, bipolar, panic attacks, depression, restless leg syndrome who presents to the emergency department for suicidal ideation. Patient reports she came to [facility] ED because she is having thoughts of wanting to because of her restless leg syndrome. She reports she wondered "cannot take it anymore... no one understands that it is All day all night." Patient denies plan multiple times. Confirm she picked up her medications from the pharmacy yesterday states that the medication worked at night but does not work during the day. When asked what help looks like for her she reports giving her the medication she takes at night so it works during the day. Clinician reminded the patient she just reported that she takes the same medication morning and night. She states that maybe her dose needs to be increased during the day. She confirms she still wants to move into a detention; however, she states her attending physician told to her that he would not write a referral for that, telling her that she needed to be "in the hospital for at least 3 days." Patient was alert and oriented to person, place, time and circumstance. Mood was anxious with congruent affect as evidenced by psychomotor agitation with would leg shaking. Patient reports restless leg syndrome. patient reports passive suicidal ideation (i.e. no plans means or intent) directly connected to her restless leg syndrome. Denies homicidal ideation. Delusions are absent behaviors congruent with an intact reality based presentation i.e. organized and linear thought process. Eye contact was poor. Conversational speech is quiet with constant moaning. Intellectual abilities are estimated to be average. Insight, judgment and impulse control were fair. Behavioral health team contacted [facility] for an updated medication list: BuSpar 10 mg 3 times daily Hydroxyzine 25 mg every 6 hours as needed rosuvastatin 20 mg daily Rosa Melendez Patient just picked up yesterday Thorazine 50 mg twice daily and 100 mg nightly No medication recommendations at this time Diagnosis: V62.9 (Z65.9) Unspecified problem related to unspecified psychosocial circumstance 296.80 (F31.9) Unspecified Bipolar and Related Disorder per history provided by patient Impression/Plan: Patient is cleared from acute psychiatric services. Patient reported coming to [facility] ED because because she "can't take it any more" with her restless leg. She reports passive suicidal ideation denies plans means and intent. Patient was just seen yesterday for the same concerns. She confirms she picked up her new medications and states her medication works at night but not during the day. She continues to confirm she wants to live in a detention and that her physician told her that she has to be in the hospital 3 days before he would make a referral will be reviewed for her to move into a detention. Clinician notes patient has been seen in the past and there has been some concern of drug-seeking behaviors. Clinician conducted psychoeducation on chronic versus acute care, problem solving and therapeutic services. Dr. Dillon was consulted and the care management this patient; attending physicians in agreement with recommendations and disposition.
--- NOTE | 2018-07-04 17:00 | ER Document Report ---
ED Medical Screen (RME) - General Chief Complaint: Suicidal Ideation Stated Complaint: PSYCH EVAL Time Seen by Provider: 07/04/18 16:04 Primary Care Provider: ROSALINO LAWRENCE MD [Primary Care Provider] - Follow up as needed Mode of Arrival: Ambulatory Information source: Patient Notes: Patient is a 68-year-old female who presents to the emergency department from Aditya Lawrence's office after making statements that she went there stating that she was suicidal. Patient has alert, anxious but answering all questions appropriately. TRAVEL OUTSIDE OF THE [place] IN LAST 30 DAYS: No - Related Data Allergies/Adverse Reactions: codeine [Codeine] Allergy (Severe, Verified 07/04/18 15:42) Anaphylaxis dihydroergotamine mesylate [From Dhe] Allergy (Severe, Verified 07/04/18 15:42) Loss of balance/severe dizziness escitalopram oxalate [From Lexapro] Adverse Reaction (Severe, Verified 07/04/18 15:42) Suicidal Past Medical History - Past Medical History Cardiac Medical History: Reports: Hx Hypercholesterolemia, Hx Hypertension Denies: Hx Coronary Artery Disease, Hx Heart Attack Pulmonary Medical History: Denies: Hx Asthma, Hx Bronchitis, Hx COPD, Hx Pneumonia Neurological Medical History: Reports: Hx Migraine. Denies: Hx Cerebrovascular Accident. Comment Only: Hx Seizures - ? Unsure, going to sleep study after preop appt Endocrine Medical History: Reports: Hx Diabetes Mellitus Type 2 Renal/ Medical History: Reports: Hx Kidney Stones. Denies: Hx Peritoneal Dialysis GI Medical History: Reports: Hx Gastroesophageal Reflux Disease, Hx Colonoscopy, Hx Endoscopy Musculoskeltal Medical History: Denies Hx Arthritis, Reports Hx Musculoskeletal Deformity Psychiatric Medical History: Reports: Hx Bipolar Disorder, Hx Depression Infectious Medical History: Past Surgical History: Reports: Hx Abdominal Surgery - lLiposuction, Hx Breast Surgery, Hx Cholecystectomy, Hx Hysterectomy, Hx Neurologic Surgery - Vagus nerve stimulator placed, Hx Nose Surgery, Hx Tonsillectomy - Immunizations Immunizations up to date: No Hx Diphtheria, Pertussis, Tetanus Vaccination: No Physical Exam - Vital signs Vitals: Temp Pulse Resp BP Pulse Ox 99.4 F 120 H 22 H 122/71 97 07/04/18 15:55 07/04/18 15:55 07/04/18 15:55 07/04/18 15:55 07/04/18 15:55 Course - Vital Signs Vital signs: Temp Pulse Resp BP Pulse Ox 99.4 F 120 H 22 H 122/71 97 07/04/18 15:55 07/04/18 15:55 07/04/18 15:55 07/04/18 15:55 07/04/18 15:55 Doctor's Discharge - Discharge Clinical Impression: Restless leg syndrome Condition: Good Disposition: HOME, SELF-CARE Referrals: ROSALINO LAWRENCE MD [Primary Care Provider] - Follow up as needed
--- NOTE | 2018-07-04 17:13 | ER Document Report ---
ED General - General Chief Complaint: Suicidal Ideation Stated Complaint: PSYCH EVAL Time Seen by Provider: 07/04/18 16:04 Primary Care Provider: ROSALINO LAWRENCE MD [Primary Care Provider] - Follow up as needed Mode of Arrival: Ambulatory Notes: Patient presents with restless leg syndrome with suicidal ideation. She reported at triage that she "just cannot take it anymore." She does not have a plan to hurt her self. Prior to my evaluation she is been both screened by the [facility] at triage and fully evaluated by the psych team who is seen her recently and multiple times. She denies suicidal ideation to me at this time. TRAVEL OUTSIDE OF THE [place] IN LAST 30 DAYS: No - Related Data Allergies/Adverse Reactions: codeine [Codeine] Allergy (Severe, Verified 07/04/18 15:42) Anaphylaxis dihydroergotamine mesylate [From Dhe] Allergy (Severe, Verified 07/04/18 15:42) Loss of balance/severe dizziness escitalopram oxalate [From Lexapro] Adverse Reaction (Severe, Verified 07/04/18 15:42) Suicidal Past Medical History - General Information source: Patient - Social History Smoking Status: Current Every Day Smoker Family History: Reviewed & Not Pertinent, Arthritis, CAD, DM, Hyperlipidemia, Hypertension, Malignancy Patient has suicidal ideation: No Patient has homicidal ideation: No - Past Medical History Cardiac Medical History: Reports: Hx Hypercholesterolemia, Hx Hypertension Denies: Hx Coronary Artery Disease, Hx Heart Attack Pulmonary Medical History: Denies: Hx Asthma, Hx Bronchitis, Hx COPD, Hx Pneumonia Neurological Medical History: Reports: Hx Migraine. Denies: Hx Cerebrovascular Accident. Comment Only: Hx Seizures - ? Unsure, going to sleep study after preop appt Endocrine Medical History: Reports: Hx Diabetes Mellitus Type 2 Renal/ Medical History: Reports: Hx Kidney Stones. Denies: Hx Peritoneal Dialysis GI Medical History: Reports: Hx Gastroesophageal Reflux Disease, Hx Colonoscopy, Hx Endoscopy Musculoskeletal Medical History: Denies Hx Arthritis, Reports Hx Musculoskeletal Deformity Psychiatric Medical History: Reports: Hx Bipolar Disorder, Hx Depression Infectious Medical History: Past Surgical History: Reports: Hx Abdominal Surgery - lLiposuction, Hx Breast Surgery, Hx Cholecystectomy, Hx Hysterectomy, Hx Neurologic Surgery - Vagus nerve stimulator placed, Hx Nose Surgery, Hx Tonsillectomy - Immunizations Immunizations up to date: No Hx Diphtheria, Pertussis, Tetanus Vaccination: No Review of Systems - Review of Systems Notes: REVIEW OF SYSTEMS GEN: Denies fever, chills, weight loss ENT: Denies sore throat, nasal discharge, ear pain EYES: Denies blurry vision, eye pain, discharge CV: Denies chest pain, palpitations, edema RESP: Denies cough, shortness of breath, wheezing GI: Denies abdominal pain, nausea, vomiting, diarrhea MSK: Chronic leg pain. Denies joint pain/swelling, edema, SKIN: Denies rash, skin lesions LYMPH: Denies swollen glands/lymph nodes NEURO: Denies headache, focal weakness or numbness, dizziness PSYCH: Present mood PHYSICAL EXAMINATION General: No acute distress, well-nourished Head: Atraumatic, normocephalic ENT: Mouth normal, oropharynx moist, no exudates or tonsillar enlargement Eyes: Conjunctiva normal, pupils equal, lids normal Neck: No JVD, supple, no guarding CVS: Normal rate, regular rhythm, no murmurs Resp: No resp distress, equal and normal breath sounds bilaterally GI: Nondistended, soft, no tenderness to palpation, no rebound or guarding Ext: No deformities, no edema, normal range of motion in upper and lower ext Back: No CVA or midline TTP Skin: No rash, warm Lymphatic: No lymphadeopathy noted Neuro: Awake, alert. Face symmetric. GCS 15. Physical Exam - Vital signs Vitals: Temp Pulse Resp BP Pulse Ox 99.4 F 120 H 22 H 122/71 97 07/04/18 15:55 07/04/18 15:55 07/04/18 15:55 07/04/18 15:55 07/04/18 15:55 Course - Re-evaluation Re-evalutation: 07/04/18 17:43 Patient with mental health history and restless leg syndrome presents with resolved suicidal ideation. She is already been cleared by psychiatry for discharge and I think this is a safe plan. I asked her to follow-up with her primary care provider regarding her restless legs and gave her return precautions for depression and suicidality. I have discussed with the patient there likely diagnosis, aftercare plan, follow-up plans and my usual and customary return precautions. They verbalized understanding of this. - Vital Signs Vital signs: Temp Pulse Resp BP Pulse Ox 99.4 F 120 H 22 H 122/71 97 07/04/18 15:55 07/04/18 15:55 07/04/18 15:55 07/04/18 15:55 07/04/18 15:55 Discharge - Discharge Clinical Impression: Restless leg syndrome Condition: Good Disposition: HOME, SELF-CARE Referrals: ROSALINO LAWRENCE MD [Primary Care Provider] - Follow up as needed
== END 2018-07-04 17:56 | disposition home or self-care (01) ==
LOC: ER 15:41
DX: G25.81 Restless legs syndrome (principal); F17.200 Nicotine dependence, unspecified, uncomplicated; I10 Essential (primary) hypertension; E11.9 Type 2 diabetes mellitus without complications
CPT/HCPCS: 99285

== ENCOUNTER → 2018-12-31 | Outpatient (CLI) | payer MEDICARE, MEDICAID ==
--- NOTE | 2018-12-31 16:43 | WOMENS IMAGING REPORT ---
EXAM DESCRIPTION: 3D SCREENING MAMMO BILAT COMPLETED DATE/TIME: 12/31/2018 11:21 am REASON FOR STUDY: Z12.31 ENCOUNTER FOR SCREENING MAMMOGRAM FOR MALIGNANT NEOPLASM OF BREAST Z12.31 ENCNTR SCREEN MAMMOGRAM FOR MALIGNANT NEOPLASM OF BREA COMPARISON: 2014 EXAM PARAMETERS: Views: Standard craniocaudal and mediolateral oblique views of each breast recorded using digital acquisition and breast tomosynthesis. Read with the assistance of CAD. .[facility] Exhauster Version 9.2 LIMITATIONS: None. FINDINGS: No suspicious masses, suspicious calcifications or architectural distortion. No areas of c oncern. IMPRESSION: NEGATIVE MAMMOGRAM. BIRADS 1. BREAST DENSITY: a. The breasts are almost entirely fatty. BIRAD: ASSESSMENT: 1 NEGATIVE RECOMMENDATION: ROUTINE SCREENING Please continue yearly bilateral screening mammography/tomosynthesis in January 2020 COMMENT: The patient has been notified of the results by letter per MQSA requirements. Additional no tification policies are in place for contacting patient with suspicious or incomplete findings. Quality ID #[id number]: The [employer] recommends an annual screening mammogram for women aged 40 years or over. This facility utilizes a reminder system to ensure that all patients receive reminder letters, and/or direct phone calls for appointments. This includes reminders for routine scr eening mammograms, diagnostic mammograms, or other Breast Imaging Interventions when appropriate. Th is patient will be placed in the appropriate reminder system. TECHNICAL DOCUMENTATION: FINDING NUMBER: (1) ASSESSMENT: (1) JOB ID: [id number] [employer]- All Rights Reserved Reading location - IP/workstation name: [email or web address]
== END ==
LOC: WI 10:38
PROVIDERS: ATTEND Internal Medicine Geriatric Medicine
DX: Z12.31 Encounter for screening mammogram for malignant neoplasm of breast (principal)
CPT/HCPCS: 77063; 77067

== ENCOUNTER 2019-07-19 11:09 | Emergency (ER) | payer MEDICARE, MEDICAID ==
[2019-07-19] MEDS ORDERED: DIPHENHYDRAMINE HCL 50 MG/ML VIAL IV ONE (12:02)
[2019-07-19] MEDS ORDERED: METHYLPREDNISOLONE INJ 125 MG/2 ML SDV IV ONE (12:02)
[2019-07-19] MEDS ORDERED: NORMAL SALINE 250 ML IV ONE (12:03)
[2019-07-19 12:26] LABS: ABSOLUTE EOSINOPHILS # (AUTO) 0.2 10^3/uL (0.0-0.6); ABSOLUTE LYMPHOCYTES (AUTO) 1.4 10^3/uL (0.5-4.7); ABSOLUTE MONOCYTES (AUTO) 0.5 10^3/uL (0.1-1.4); ABSOLUTE NEUT (AUTO) 3.6 10^3/uL (1.7-8.2); BASOPHILS % (AUTO) 0.7 % (0-2); EOSINOPHILS % (AUTO) 2.7 % (0-6); HEMATOCRIT 29.8 % (36.0-47.0); HEMOGLOBIN 10.1 g/dL (12.0-15.5); LYMPHOCYTES % (AUTO) 25.4 % (13-45); MEAN CORPUSCULAR HEMOGLOBIN 29.5 pg (27.0-33.4); MEAN CORPUSCULAR HGB CONC 33.9 g/dL (32.0-36.0); MEAN CORPUSCULAR VOLUME 87 fl (80-97); MONOCYTES % (AUTO) 7.9 % (3-13); PLATELET COUNT 242 10^3/uL (150-450); RED BLOOD COUNT 3.42 10^6/uL (3.72-5.28); RED CELL DISTRIBUTION WIDTH 13.4 % (11.5-14.0); SEGMENTED NEUTROPHILS % (AUTO) 63.3 % (42-78); TOTAL CELLS COUNTED % (AUTO) 100 %; WHITE BLOOD COUNT 5.7 10^3/uL (4.0-10.5)
[2019-07-19 12:44] LABS: ALBUMIN 3.7 g/dL (3.5-5.0); ALKALINE PHOSPHATASE 96 U/L (38-126); ANION GAP 7 (5-19); ASPARTATE AMINO TRANSFERASE 24 U/L (14-36); BILIRUBIN,TOTAL 0.4 mg/dL (0.2-1.3); BLOOD UREA NITROGEN 13 mg/dL (7-20); CALCIUM 9.8 mg/dL (8.4-10.2); CARBON DIOXIDE 27 mmol/L (22-30); CHLORIDE 104 mmol/L (98-107); GLUCOSE 138 mg/dL (75-110); POTASSIUM 4.1 mmol/L (3.6-5.0); TOTAL PROTEIN 6.2 g/dL (6.3-8.2)
--- NOTE | 2019-07-19 12:45 | RADIOLOGY REPORT (SQ) ---
EXAM DESCRIPTION: CHEST SINGLE VIEW IMAGES COMPLETED DATE/TIME: 07/19/2019 11:33 am REASON FOR STUDY: tongue swelling/wheeze 04/18/2018 COMPARISON: None. EXAM PARAMETERS: NUMBER OF VIEWS: One view. TECHNIQUE: Single frontal radiographic view of the chest acquired. RADIATION DOSE: NA LIMITATIONS: None. FINDINGS: LUNGS AND PLEURA: Lungs are hyperinflated. No opacities, masses or pneumothorax. No pleur al effusion. MEDIASTINUM AND HILAR STRUCTURES: No masses. Contour normal. HEART AND VASCULAR STRUCTURES: Heart normal in size. Normal vasculature. BONES: No acute findings. HARDWARE: Battery pack with lead wire at the left hemithorax, unchanged. OTHER: No other significant finding. IMPRESSION: No significant interval change. No acute cardiopulmonary disease. TECHNICAL DOCUMENTATION: JOB ID: [id number] 2010 [employer]- All Rights Reserved Reading location - IP/workstation name: [email or web address]
[2019-07-19 13:12] LABS: A TYPE INFLUENZA AG NEGATIVE (NEGATIVE); B INFLUENZA AG NEGATIVE (NEGATIVE)
--- NOTE | 2019-07-19 14:29 | ER Document Report ---
Entered by RENAN DANIEL SCRIBE 07/19/19 1213 Acting as scribe for:MARIPOSA VALLEJO MD ED General - General Chief Complaint: Swelling of Tongue Stated Complaint: SWOLLEN TONGUE Time Seen by Provider: 07/19/19 11:33 Primary Care Provider: ROSALINO LAWRENCE MD [Primary Care Provider] - Follow up as needed Information source: Patient Notes: This 69 year old female patient presents to the emergency department today with complaints of a swollen tongue. Patient states she woke up this morning and everything was normal and ate breakfast. Patient states her tongue began swelling and she has visited [facility] prior to coming to the ED. Patient denies recently eating seafood or starting any new medications. TRAVEL OUTSIDE OF THE [place] IN LAST 30 DAYS: No - Related Data Allergies/Adverse Reactions: codeine [Codeine] Allergy (Severe, Verified 07/04/18 15:42) Anaphylaxis dihydroergotamine mesylate [From Dhe] Allergy (Severe, Verified 07/04/18 15:42) Loss of balance/severe dizziness escitalopram oxalate [From Lexapro] Adverse Reaction (Severe, Verified 07/04/18 15:42) Suicidal Past Medical History - General Information source: Patient - Social History Smoking Status: Never Smoker Cigarette use (# per day): No Chew tobacco use (# tins/day): No Frequency of alcohol use: None Drug Abuse: None Lives with: Alone Family History: Reviewed & Not Pertinent, Arthritis, CAD, DM, Hyperlipidemia, Hypertension, Malignancy Patient has suicidal ideation: No Patient has homicidal ideation: No - Past Medical History Cardiac Medical History: Reports: Hx Hypercholesterolemia, Hx Hypertension Neurological Medical History: Reports: Hx MigraineComment Only: Hx Seizures - ? Unsure, going to sleep study after preop appt Endocrine Medical History: Reports: Hx Diabetes Mellitus Type 2 Renal/ Medical History: Reports: Hx Kidney Stones GI Medical History: Reports: Hx Gastroesophageal Reflux Disease, Hx Colonoscopy, Hx Endoscopy Musculoskeletal Medical History: Reports Hx Musculoskeletal Deformity Psychiatric Medical History: Reports: Hx Bipolar Disorder, Hx Depression Infectious Medical History: Past Surgical History: Reports: Hx Abdominal Surgery - lLiposuction, Hx Breast Surgery, Hx Cholecystectomy, Hx Hysterectomy, Hx Neurologic Surgery - Vagus nerve stimulator placed, Hx Nose Surgery, Hx Tonsillectomy - Immunizations Immunizations up to date: No Hx Diphtheria, Pertussis, Tetanus Vaccination: No Review of Systems - Review of Systems Constitutional: No symptoms reported EENT: See HPI, Other - Tongue swelling. Cardiovascular: No symptoms reported Respiratory: No symptoms reported Gastrointestinal: No symptoms reported Genitourinary: No symptoms reported Female Genitourinary: No symptoms reported Musculoskeletal: No symptoms reported Skin: No symptoms reported Hematologic/Lymphatic: No symptoms reported Neurological/Psychological: No symptoms reported -: Yes All other systems reviewed and negative Physical Exam - Vital signs Vitals: Temp 98.1 F 07/19/19 11:21 - General General appearance: Appears well, Alert - HEENT Head: Normocephalic, Atraumatic Eyes: Normal Pupils: PERRL Mouth/Lips: Other - Tongue is dry. Mild edema and mild erythema of the tongue. Mucous membranes: Dry Pharynx: Other - Airway is not compromised. - Respiratory Respiratory status: No respiratory distress Chest status: Nontender Breath sounds: Wheezing - Trace wheeze. Chest palpation: Normal - Cardiovascular Rhythm: Regular Heart sounds: Normal auscultation, S1 appreciated, S2 appreciated Murmur: No - Abdominal Inspection: Obese Distension: No distension Bowel sounds: Normal Tenderness: Nontender - Extremities General upper extremity: Normal inspection. No: Edema General lower extremity: Normal inspection. No: Edema - Neurological Neuro grossly intact: Yes Cognition: Normal Orientation: AAOx4 - Psychological Associated symptoms: Normal affect, Normal mood - Skin Skin Temperature: Warm Skin Moisture: Dry Skin Color: Normal Course - Re-evaluation Re-evalutation: 07/19/19 14:22 Patient resting comfortably in bed not showing any signs of distress. Tongue swelling has improved. - Vital Signs Vital signs: Temp Pulse Resp BP Pulse Ox 98.4 F 83 18 135/66 H 91 L 07/19/19 11:29 07/19/19 11:29 07/19/19 11:29 07/19/19 11:29 07/19/19 11:29 - Laboratory Result Diagrams: 07/19/19 11:39 07/19/19 11:39 Laboratory results interpreted by me: 07/19/19 07/19/19 11:39 11:39 RBC 3.42 L Hgb 10.1 L Hct 29.8 L Glucose 138 H Total Protein 6.2 L Laboratories within normal limits. Patient's glucose 138 and patient is known diabetic on medications. - Diagnostic Test Radiology reviewed: Image reviewed, Reports reviewed Radiology results interpreted by me: 07/19/19 14:23 Chest x-ray no acute process. Discharge - Discharge Clinical Impression: Mild tongue swelling, Bipolar disease, chronic Condition: Stable Disposition: HOME, SELF-CARE Additional Instructions: You had a transient swelling of your tongue today that was mild. It has improved with medications of steroids and Benadryl. We are not certain as to what caused her mild tongue swelling today we do recommend that she continue your same medications. If tongue swelling returns please would come back to the emergency department for further evaluation particularly if there is any proble ms with airway breathing. At this time I recommend Benadryl if needed for any tongue swelling. Prescriptions: Diphenhydramine HCl [Benadryl 25 mg Capsule] 25 mg PO QID PRN #20 capsule PRN Reason: prn tongue swelling Referrals: ROSALINO LAWRENCE MD [Primary Care Provider] - Follow up as needed I personally performed the services described in the documentation, reviewed and edited the documentation which was dictated to the scribe in my presence, and it accurately records my words and actions.
[2019-07-19 14:42] VITALS: BP 142/77
== END 2019-07-19 15:11 | disposition home or self-care (01) ==
LOC: ER 11:09
DX: R22.0 Localized swelling, mass and lump, head (principal); F31.9 Bipolar disorder, unspecified; R06.2 Wheezing; I10 Essential (primary) hypertension; E11.9 Type 2 diabetes mellitus without complications; Z87.892 Personal history of anaphylaxis; Z88.6 Allergy status to analgesic agent; Z88.5 Allergy status to narcotic agent
CPT/HCPCS: 99284; 96374; 96375; 36415; 87070; 87880; 85025; 80053; 87804; 71045; J1200; J2930; J7050

== ENCOUNTER 2019-08-05 20:08 | Emergency (ER) | payer MEDICARE, MEDICAID ==
--- NOTE | 2019-08-05 20:28 | ER Document Report ---
ED Medical Screen (RME) - General Chief Complaint: Near Syncope Stated Complaint: FALL/RIB INJURY Time Seen by Provider: 08/05/19 20:24 Primary Care Provider: ROSALINO LAWRENCE MD [Primary Care Provider] - Follow up as needed Mode of Arrival: Wheelchair Information source: Patient Notes: 69-year-old female presented to ED for complaint of falling 3 times. She states she was trying to walk around in the room and she does not know if she tripped over something or what happened. She states she fell 3 times today. When she was seen to get her vital signs she states she kept not being able to remember things. She is able to answer questions appropriately when I examined her. She did know what her name was. She thinks she might have just tripped but her bloo d pressure is 92/52 her as well as fluctuating while on the monitor. Her pulse was 69 1 minute. It was irregular I have greeted and performed a rapid initial assessment of this patient. A comprehensive ED assessment and evaluation of the patient, analysis of test results and completion of medical decision making process will be conducted by an additional ED providers. TRAVEL OUTSIDE OF THE [place] IN LAST 30 DAYS: No - Related Data Allergies/Adverse Reactions: codeine [Codeine] Allergy (Severe, Verified 07/04/18 15:42) Anaphylaxis dihydroergotamine mesylate [From Dhe] Allergy (Severe, Verified 07/04/18 15:42) Loss of balance/severe dizziness escitalopram oxalate [From Lexapro] Adverse Reaction (Severe, Verified 07/04/18 15:42) Suicidal Past Medical History - Past Medical History Cardiac Medical History: Reports: Hx Hypercholesterolemia, Hx Hypertension Denies: Hx Coronary Artery Disease, Hx Heart Attack Pulmonary Medical History: Denies: Hx Asthma, Hx Bronchitis, Hx COPD, Hx Pneumonia Neurological Medical History: Reports: Hx Migraine. Denies: Hx Cerebrovascular Accident. Comment Only: Hx Seizures - ? Unsure, going to sleep study after preop appt Endocrine Medical History: Reports: Hx Diabetes Mellitus Type 2 Renal/ Medical History: Reports: Hx Kidney Stones. Denies: Hx Peritoneal Dialysis GI Medical History: Reports: Hx Gastroesophageal Reflux Disease, Hx Colonoscopy, Hx Endoscopy Musculoskeltal Medical History: Denies Hx Arthritis, Reports Hx Musculoskeletal Deformity Psychiatric Medical History: Reports: Hx Bipolar Disorder, Hx Depression Infectious Medical History: Past Surgical History: Reports: Hx Abdominal Surgery - lLiposuction, Hx Breast Surgery, Hx Cholecystectomy, Hx Hysterectomy, Hx Neurologic Surgery - Vagus nerve stimulator placed, Hx Nose Surgery, Hx Tonsillectomy - Immunizations Immunizations up to date: No Hx Diphtheria, Pertussis, Tetanus Vaccination: No Physical Exam - Vital signs Vitals: Temp Pulse Resp BP Pulse Ox 99.0 F 93 19 92/52 L 93 08/05/19 20:14 08/05/19 20:14 08/05/19 20:14 08/05/19 20:14 08/05/19 20:14 Course - Vital Signs Vital signs: Temp Pulse Resp BP Pulse Ox 99.0 F 93 19 92/52 L 93 08/05/19 20:14 08/05/19 20:14 08/05/19 20:14 08/05/19 20:14 08/05/19 20:14 Doctor's Discharge - Discharge Referrals: ROSALINO LAWRENCE MD [Primary Care Provider] - Follow up as needed
--- NOTE | 2019-08-05 20:50 | EKG REPORT ---
SEVERITY:- ABNORMAL ECG - SINUS RHYTHM ABNRM R PROG, CONSIDER ASMI OR LEAD PLACEMENT : Confirmed by: Cayden Espitia MD 05-Aug-2019 20:49:50
[2019-08-05 21:04] LABS: ABSOLUTE MONOCYTES (AUTO) 0.6 10^3/uL (0.1-1.4); ABSOLUTE NEUT (AUTO) 10.4 10^3/uL (1.7-8.2); BASOPHILS % (AUTO) 0.3 % (0-2); EOSINOPHILS % (AUTO) 0.1 % (0-6); HEMOGLOBIN 10.5 g/dL (12.0-15.5); LYMPHOCYTES % (AUTO) 8.5 % (13-45); MEAN CORPUSCULAR HEMOGLOBIN 28.3 pg (27.0-33.4); MEAN CORPUSCULAR HGB CONC 32.9 g/dL (32.0-36.0); MEAN CORPUSCULAR VOLUME 86 fl (80-97); MONOCYTES % (AUTO) 5.1 % (3-13); PLATELET COUNT 273 10^3/uL (150-450); RED BLOOD COUNT 3.72 10^6/uL (3.72-5.28); RED CELL DISTRIBUTION WIDTH 13.7 % (11.5-14.0); TOTAL CELLS COUNTED % (AUTO) 100 %; WHITE BLOOD COUNT 12.1 10^3/uL (4.0-10.5)
--- NOTE | 2019-08-05 21:12 | ER Document Report ---
ED General - General Chief Complaint: Near Syncope Stated Complaint: FALL/RIB INJURY Time Seen by Provider: 08/05/19 20:24 Primary Care Provider: ROSALINO LAWRENCE MD [Primary Care Provider] - Follow up as needed Mode of Arrival: Wheelchair Information source: Patient Notes: triage notes Pt reports multiple falls since 1200 this afternoon. States she hit top of head. Denies dizziness and headache. Reports crawling on knees after falling and having trouble getting up. Redness and scrapes noted to bilateral knees. Denies head pain. flores notes 69-year-old female presented to ED for complaint of falling 3 times. She states she was trying to walk around in the room and she does not know if she tripped over something or what happened. She states she fell 3 times today. When she was seen to get her vital signs she states she kept not being able to remember things. She is able to answer questions appropriately when I examined her. She did know what her name was. She thinks she might have just tripped but her blood pressure is 92/52 her as well as fluctuating while on the monitor. Her pulse was 69 1 minute. It was irregular my notes 69-year-old female arrives with chief complaint of right anterior lateral rib pain after she fell. Patient reports for the last 2 to 3 weeks she been having increasingly more falls. She lives at assisted living. She is a type II diabetic and hates sticking herself to check her blood sugars. Blood sugar upon arrival was 396. Her temperature was 99 and her blood pressure was 92/52 but she denies any headache neck pain shortness of breath abdominal pain diarrhea constipation dysuria fever chills trauma abuse spider bites animal bites human bites or exposure to sick people's TRAVEL OUTSIDE OF THE [place] IN LAST 30 DAYS: No - HPI Onset: Other - x 2-3 weeks Onset/Duration: Persistent, Worse Quality of pain: Achy Severity: Mild Pain Level: 1 Associated symptoms: Weakness Exacerbated by: Movement, Deep breathing Relieved by: Denies Similar symptoms previously: No - Patient denies prior history of [place] congestive failure strokes or heart matt Recently seen / treated by doctor: No - Related Data Allergies/Adverse Reactions: codeine [Codeine] Allergy (Severe, Verified 07/04/18 15:42) Anaphylaxis dihydroergotamine mesylate [From Dhe] Allergy (Severe, Verified 07/04/18 15:42) Loss of balance/severe dizziness escitalopram oxalate [From Lexapro] Adverse Reaction (Severe, Verified 07/04/18 15:42) Suicidal Past Medical History - General Information source: Patient - Social History Smoking Status: Never Smoker Chew tobacco use (# tins/day): No Frequency of alcohol use: None Drug Abuse: None Family History: Reviewed & Not Pertinent, Arthritis, CAD, DM, Hyperlipidemia, Hypertension, Malignancy Patient has homicidal ideation: No - Past Medical History Cardiac Medical History: Reports: Hx Hypercholesterolemia, Hx Hypertension Denies: Hx Coronary Artery Disease, Hx Heart Attack Pulmonary Medical History: Denies: Hx Asthma, Hx Bronchitis, Hx COPD, Hx Pneumonia Neurological Medical History: Reports: Hx Migraine. Denies: Hx Cerebrovascular Accident. Comment Only: Hx Seizures - ? Unsure, going to sleep study after preop appt Endocrine Medical History: Reports: Hx Diabetes Mellitus Type 2 Renal/ Medical History: Reports: Hx Kidney Stones. Denies: Hx Peritoneal Dialysis GI Medical History: Reports: Hx Gastroesophageal Reflux Disease, Hx Colonoscopy, Hx Endoscopy Musculoskeletal Medical History: Denies Hx Arthritis, Reports Hx Musculoskeletal Deformity Psychiatric Medical History: Reports: Hx Bipolar Disorder, Hx Depression Infectious Medical History: Past Surgical History: Reports: Hx Abdominal Surgery - lLiposuction, Hx Breast Surgery, Hx Cholecystectomy, Hx Hysterectomy, Hx Neurologic Surgery - Vagus nerve stimulator placed, Hx Nose Surgery, Hx Tonsillectomy - Immunizations Immunizations up to date: No Hx Diphtheria, Pertussis, Tetanus Vaccination: No Review of Systems - Review of Systems Constitutional: See HPI, Malaise, Weakness EENT: No symptoms reported Cardiovascular: See HPI, Chest pain - Patient points to her right anterior lateral ribs which are tender on palpation and deep breathing Respiratory: No symptoms reported Gastrointestinal: No symptoms reported Genitourinary: No symptoms reported Female Genitourinary: No symptoms reported Musculoskeletal: No symptoms reported Skin: No symptoms reported Hematologic/Lymphatic: No symptoms reported Neurological/Psychological: No symptoms reported Physical Exam - Vital signs Vitals: Temp Pulse Resp BP Pulse Ox 99.0 F 93 19 92/52 L 93 08/05/19 20:14 08/05/19 20:14 08/05/19 20:14 08/05/19 20:14 08/05/19 20:14 Interpretation: Hypotensive, Febrile - General General appearance: Alert - HEENT Head: Normocephalic, Atraumatic Eyes: Normal Pupils: PERRL Pharynx: Normal Neck: Normal - Respiratory Respiratory status: No respiratory distress Chest status: Tender - right ant lat ribs on p/p Breath sounds: Normal Chest palpation: Normal - Cardiovascular Rhythm: Regular Heart sounds: Normal auscultation Murmur: No - Abdominal Inspection: Normal Distension: No distension Bowel sounds: Normal Tenderness: Nontender Organomegaly: No organomegaly - Genitourinary External exam: Normal - Back Back: Normal, Nontender - Extremities General upper extremity: Normal inspection General lower extremity: Normal inspection - Neurological Neuro grossly intact: Yes Cognition: Normal Orientation: AAOx4 [place] Coma Scale Eye Opening: Spontaneous [place] Coma Scale Verbal: Oriented [place] Coma Scale Motor: Obeys Commands [place] Coma Scale Total: 15 Speech: Normal Motor strength normal: LUE, RUE, LLE, RLE Sensory: Normal - Psychological Associated symptoms: Normal affect - Skin Skin Temperature: Warm Skin Moisture: Dry Skin Color: Other - No obvious ecchymosis to right anterior lateral ribs Course - Vital Signs Vital signs: Temp Pulse Resp BP Pulse Ox 99.0 F 93 20 109/59 L 97 08/05/19 20:22 08/05/19 20:14 08/05/19 21:48 08/05/19 21:48 08/05/19 21:48 - Laboratory Result Diagrams: 08/05/19 20:51 08/05/19 20:51 Laboratory results interpreted by me: 08/05/19 08/05/19 08/05/19 20:40 20:51 20:51 WBC 12.1 H Hgb 10.5 L Hct 32.0 L Lymph % (Auto) 8.5 L Absolute Neuts (auto) 10.4 H Seg Neutrophils % 86.0 H Sodium 131.6 L Chloride 96 L BUN 23 H Est GFR ( Amer) 58 L Est GFR (MDRD) Non-Af 48 L Glucose 366 H POC Glucose 396 H AST 47 H ALT 58 H Alkaline Phosphatase 154 H Creatine Kinase 477 H Total Protein 5.9 L Urine Protein Urine Glucose (UA) 08/05/19 08/05/19 21:44 23:05 WBC Hgb Hct Lymph % (Auto) Absolute Neuts (auto) Seg Neutrophils % Sodium Chloride BUN Est GFR ( Amer) Est GFR (MDRD) Non-Af Glucose POC Glucose 223 H AST ALT Alkaline Phosphatase Creatine Kinase Total Protein Urine Protein 30 H Urine Glucose (UA) 150 H - Diagnostic Test Radiology reviewed: Reports reviewed - Eighth rib fracture on right with CT of head and neck with no acute findings per radiologist - EKG Interpretation by Me EKG shows normal: Sinus rhythm Rate: Normal Rhythm: NSR Critical Care Note - Critical Care Note Total time excluding time spent on procedures (mins): 90 Comments: Latest sugar per Royal GUERRERO was 229 and therefore the IV insulin was held Discharge - Discharge Clinical Impression: Fall Qualifiers: Encounter type: initial encounter Qualified Code(s): W19.XXXA - Unspecified fall, initial encounter Closed rib fracture Qualifiers: Encounter type: initial encounter Rib fracture type: single rib Laterality: right Qualified Code(s): S22.31XA - Fracture of one rib, right side, initial encounter for closed fracture Hyperglycemia due to type 2 diabetes mellitus Qualifiers: 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
[2019-08-05] MEDS ORDERED: NORMAL SALINE 1000 ML 1,000 ML IV ONE (21:15)
[2019-08-05 21:21] LABS: ALBUMIN 3.7 g/dL (3.5-5.0); ALKALINE PHOSPHATASE 154 U/L (38-126); ANION GAP 11 (5-19); ASPARTATE AMINO TRANSFERASE 47 U/L (14-36); BILIRUBIN,TOTAL 0.5 mg/dL (0.2-1.3); BLOOD UREA NITROGEN 23 mg/dL (7-20); CALCIUM 9.1 mg/dL (8.4-10.2); CARBON DIOXIDE 25 mmol/L (22-30); CHLORIDE 96 mmol/L (98-107); CREATINE KINASE 477 U/L (30-135); GLUCOSE 366 mg/dL (75-110); TOTAL PROTEIN 5.9 g/dL (6.3-8.2)
[2019-08-05 21:34] LABS: CREATINE KINASE MB 2.26 ng/mL (<4.55); TROPONIN I 0.021 ng/mL
[2019-08-05 22:03] LABS: APPEARANCE,URINE SLIGHTLY-CLOUDY; BILIRUBIN,URINE NEGATIVE (NEGATIVE); COLOR,URINE YELLOW; GLUCOSE, URINE 150 mg/dL (NEGATIVE); KETONES,URINE NEGATIVE (NEGATIVE); LEUKOCYTE ESTERASE,URINE NEGATIVE (NEGATIVE); NITRITE,URINE NEGATIVE (NEGATIVE); PROTEIN,URINE 30 mg/dL (NEGATIVE); URINE SPECIFIC GRAVITY 1.012; UROBILINOGEN,URINE NEGATIVE mg/dL (<2.0)
--- NOTE | 2019-08-05 22:36 | RADIOLOGY REPORT (SQ) ---
CT BRAIN AND CERVICAL SPINE EXAM DATE: 08/05/2019 9:13 PM CDT HISTORY: Trauma. COMPARISON: None. TECHNIQUE: CT scan of the brain and cervical spine without IV contrast. This exam was performed according to our departmental dose-optimization program, which includes automated exposure control, adjustment of the mA and/or kV according to patient size and/or use of iterative reconstruction technique. FINDINGS: BRAIN: The ventricles, cisterns, and sulci are age-appropriate. No evidence of acute infarction, intracranial hemorrhage, extra-axial fluid collection, or midline shift. No air-fluid levels are seen in the paranasal sinuses to suggest acute sinusitis. There is opacification of multiple right-sided mastoid air cells. No depressed skull fracture. CERVICAL SPINE: No acute cervical fracture or prevertebral soft tissue swelling. There is straightening of the normal cervical lordosis, which may be due to cervical collar, muscle spasm, or patient positioning. There is mild multilevel degenerative disc disease as well as facet DJD throughout the cervical spine. The spinal canal is grossly patent. IMPRESSION: 1. No acute intracranial hemorrhage. 2. No acute fracture or subluxation of the cervical spine.
--- NOTE | 2019-08-05 22:41 | RADIOLOGY REPORT (SQ) ---
EXAM DESCRIPTION: CT chest without contrast CLINICAL HISTORY: 69 years Female, fall, right rib pain COMPARISON: None. TECHNIQUE: Axial images of the chest were performed without the use of intravenous contrast, with sagittal and coronal reformatted images. This exam was performed according to our departmental dose-optimization program which includes use of Automated Exposure Control, adjustment of the mA and/or kV according to patient size and/or use of iterative reconstruction technique. FINDINGS: There is subtle fracture involving the right eighth rib, anterolaterally. No evidence of pneumothorax. There is elevation of the right hemidiaphragm. There is coronary artery calcification. There is a small amount of pneumobilia. The patient has had a cholecystectomy. The spleen is top normal to mildly enlarged. There is a left upper pole renal cyst. IMPRESSION: Fracture of the right eighth rib. Other findings as described.
[2019-08-05] MEDS ORDERED: INSULIN REG, HUMAN 100 UNIT/ML 3 ML VIAL (PYX) IV ONE (22:43)
--- NOTE | 2019-08-05 22:44 | RADIOLOGY REPORT (SQ) ---
EXAM DESCRIPTION: XR CHEST 2 VIEWS COMPLETED DATE/TME: 08/05/2019 20:29 CLINICAL HISTORY: 69 years, Female, right rib pain COMPARISON: None. NUMBER OF VIEWS: TECHNIQUE: LIMITATIONS: None. FINDINGS: There is fracture of the right eighth rib, that was much better visualized on the patient's chest CT scan. No evidence of pneumothorax. There is mild bibasilar atelectasis. There is elevation of the right hemidiaphragm. There are atherosclerotic changes and tortuosity of the thoracic aorta. IMPRESSION: Fracture of the right eighth rib. Other findings as described. copyright 2010 [employer]- All Rights Reserved
[2019-08-05] MEDS ORDERED: LIDOCAINE 5% (700 MG) TRANSDERMAL ADH..PATCH TP ONE (22:52)
[2019-08-06 01:36] VITALS: BP 143/92
== END 2019-08-06 01:40 | disposition home or self-care (01) ==
LOC: ER 20:08
DX: S22.31XA Fracture of one rib, right side, initial encounter for closed fracture (principal); W19.XXXA Unspecified fall, initial encounter; E11.65 Type 2 diabetes mellitus with hyperglycemia; R29.6 Repeated falls; R53.1 Weakness; R53.81 Other malaise; I10 Essential (primary) hypertension; Z87.892 Personal history of anaphylaxis; Z88.6 Allergy status to analgesic agent; Z88.5 Allergy status to narcotic agent; Z88.8 Allergy status to other drugs, medicaments and biological substances
CPT/HCPCS: 93005; 99285; 96360; 36415; 82553; 82962; 82550; 85025; 80053; 81001; 84484; 71046; 70450; 71250; 72125; 93010; A9270; J7030